=== PATIENT | female | born 1940 | race Caucasian/White ===

== ENCOUNTER 2017-08-05 05:37 | Inpatient (IN) | payer MEDICARE, MEDICAID ==
[~2017-08-05] VITALS: Ht 165.1 cm; Wt 71.0 kg
[2017-08-05] MEDS ORDERED: morphine 4 MG/ML inj SYRINge IV ONE ×2 (05:50→06:45)
[2017-08-05] MEDS ORDERED: ondansetron/PF 4mg/2ml inj IV ONE (05:50)
[2017-08-05] MEDS: morphine 4 MG/ML inj SYRINge IV PRN ×7 (07:34→21:10)
[2017-08-05 08:23] LABS: BASOPHILS % (AUTO) 0.3 % (0-1); EOSINOPHILS # (AUTO) 0.2 X10'3 (0-0.9); EOSINOPHILS % (AUTO) 2.1 % (0-6); HEMATOCRIT 34.6 % (35.0-45.0); HEMOGLOBIN 11.3 g/dl (12.0-16.0); LYMPHOCYTES # (AUTO) 1.9 X10'3 (1.1-4.8); LYMPHOCYTES % (AUTO) 18.9 % (21-51); MEAN CORPUSCULAR HEMOGLOBIN 25.8 PG (27.0-31.0); MEAN CORPUSCULAR HGB CONC 32.6 % (33.0-36.5); MEAN CORPUSCULAR VOLUME 79.1 FL (78-98); MONOCYTES # (AUTO) 0.6 X10'3 (0-0.9); MONOCYTES % (AUTO) 5.4 % (2-12); NEUTROPHILS # (AUTO) 7.5 X10'3 (1.8-7.7); NEUTROPHILS % (AUTO) 73.3 % (42-75); PLATELET COUNT 327 X10'3 (140-440); RED BLOOD COUNT 4.37 X10'6 (4.20-5.60); RED CELL DISTRIBUTION WIDTH 18.3 % (11.5-14.5); WHITE BLOOD COUNT 10.3 X10'3 (4.5-11.0)
[2017-08-05 08:41] LABS: ALANINE AMINOTRANSFERASE 14 U/L (12-78); ALBUMIN 2.8 G/DL (3.4-5.0); ALBUMIN/GLOBULIN RATIO 0.7 (1.1-1.5); ALKALINE PHOSPHATASE 120 IU/L (46-116); ANION GAP 10 (8-16); ASPARTATE AMINO TRANSFERASE 13 U/L (10-37); BILIRUBIN,TOTAL 0.4 MG/DL (0.1-1.0); BLOOD UREA NITROGEN 18 MG/DL (7-18); BUN/CREATININE RATIO 14.1 (6.6-38.0); CALCIUM 8.8 MG/DL (8.5-10.1); CHLORIDE 107 MMOL/L (99-107); CREATININE 1.28 MG/DL (0.40-0.90); GLUCOSE 93 MG/DL (70-104); POTASSIUM 3.7 MMOL/L (3.5-5.1); SODIUM 140 MMOL/L (135-145); TOTAL CARBON DIOXIDE 23.4 MMOL/L (24-32); eGFR 41 ML/MIN
[2017-08-05 08:50] LABS: CLARITY,URINE SLIGHTLY CLOUDY (Clear); COLOR,URINE YELLOW (Yellow); GLUCOSE, URINE NEGATIVE (Neg); KETONES,URINE NEGATIVE (Neg); LEUKOCYTE ESTERASE ,URINE NEGATIVE (Neg); NITRITES, URINE POSITIVE (Neg); OCCULT BLOOD,URINE NEGATIVE (Neg); PROTEIN,URINE NEGATIVE (Neg); UROBILINOGEN,URINE 0.2 E.U/dL (0.2-1.0)
[2017-08-05 09:17] LABS: UA COLLECTION TYPE FOLEY CATH
[2017-08-05 09:19] LABS: BACTERIA,URINE 4+ /HPF (Neg); MUCUS STRANDS MODERATE /LPF (Neg); RBC,URINE 0-2 /HPF (0-2); SQUAMOUS EPITHELIAL CELL,UR FEW /LPF (FEW)
[2017-08-05] MEDS ORDERED: mag hydrox/Alum hydrox/simeth 30ml oral suspension PO PRN (11:45)
[2017-08-05] MEDS ORDERED: morphine 4 MG/ML inj SYRINge IV PRN (11:45)
[2017-08-05] MEDS: K and/or MAG REPLACEMENT MC SCH (11:45)
[2017-08-05] MEDS ORDERED: magnesium hydroxide 30ml (MOM) UD suspension PO PRN (11:45)
[2017-08-05] MEDS ORDERED: HYDROcodone/acetaminophen 10/325mg tab PO PRN (11:45)
[2017-08-05] MEDS ORDERED: magnesium/D5W IVPB 50 ML IV PRN (11:45)
[2017-08-05] MEDS ORDERED: acetaminophen 325mg tablet PO PRN (11:45)
[2017-08-05] MEDS ORDERED: potassium Cl 20 mEq SR tablet PO PRN ×2 (11:45)
[2017-08-05] MEDS ORDERED: diphenhydrAMINE 25mg capsule PO PRN (11:45)
[2017-08-05] MEDS ORDERED: potassium Cl 40MEQ/NS 500ml 500 ML IV PRN ×2 (11:45)
[2017-08-05] MEDS ORDERED: magnesium 4gm in 100ml NS 100 ML IV PRN (11:45)
[2017-08-05] MEDS ORDERED: HYDROcodone/acetaminophen 5mg/325mg tablet PO PRN (11:45)
[2017-08-05] MEDS ORDERED: PROC10TA10 PO (11:51)
[2017-08-05] MEDS ORDERED: AMLO5TAB16 PO (11:51)
[2017-08-05] MEDS ORDERED: TIZA2TAB4 PO (11:51)
[2017-08-05] MEDS ORDERED: WARF3TAB56 PO (11:51)
[2017-08-05] MEDS ORDERED: CARV12.549 PO (11:51)
[2017-08-05] MEDS ORDERED: LEVO88TA7 PO (11:51)
[2017-08-05] MEDS ORDERED: LISI40TA4 PO (11:51)
[2017-08-05] MEDS ORDERED: OXYC20TA40 PO (11:51)
[2017-08-05] MEDS ORDERED: OMEP40CA37 PO (11:51)
[2017-08-05] MEDS ORDERED: CITA20TA27 PO (11:51)
[2017-08-05 12:45] VITALS: BP 155/77
[2017-08-05] MEDS: levoFLOXACIN-Levaquin 750MG/D5 150 ML IV SCH (13:34)
[2017-08-05] MEDS: normal saline 1000ml 1,000 ML IV SCH (13:35)
[2017-08-05 13:42] LABS: PARTIAL THROMBOPLASTIN TIME 45 SECONDS (22-32); PROTHROMBIN TIME 48.2 SECONDS (9.0-12.0)
[2017-08-05 13:46] LABS: INR 4.9 INR
[2017-08-05] MEDS: oxyCODONE IR 5mg (immed. release) tablet PO SCH ×2 (16:29→21:09)
[2017-08-05 18:00] VITALS: BP 143/85
[2017-08-05] MEDS: carVEDilol 12.5mg tablet PO SCH (21:09)
[2017-08-05] MEDS: lisinopril 10 MG tablet PO SCH (21:09)
[2017-08-05] MEDS: temazepam 15mg capsule PO PRN (21:36)
[2017-08-05 22:00] VITALS: BP 137/87
[2017-08-06] MEDS: morphine 4 MG/ML inj SYRINge IV PRN ×6 (00:59→20:28)
[2017-08-06] MEDS: normal saline 1000ml 1,000 ML IV SCH ×3 (01:02→17:35)
[2017-08-06 06:00] VITALS: BP 154/86
[2017-08-06 06:07] LABS: INR 2.5 INR; PROTHROMBIN TIME 25.5 SECONDS (9.0-12.0)
[2017-08-06 06:08] LABS: BASOPHILS % (AUTO) 0.5 % (0-1); EOSINOPHILS # (AUTO) 0.2 X10'3 (0-0.9); EOSINOPHILS % (AUTO) 3.2 % (0-6); HEMATOCRIT 30.1 % (35.0-45.0); HEMOGLOBIN 9.8 g/dl (12.0-16.0); LYMPHOCYTES # (AUTO) 1.6 X10'3 (1.1-4.8); LYMPHOCYTES % (AUTO) 27.3 % (21-51); MEAN CORPUSCULAR HEMOGLOBIN 25.6 PG (27.0-31.0); MEAN CORPUSCULAR HGB CONC 32.6 % (33.0-36.5); MEAN CORPUSCULAR VOLUME 78.6 FL (78-98); MEAN PLATELET VOLUME 8.6 FL (7.4-10.4); MONOCYTES # (AUTO) 0.4 X10'3 (0-0.9); MONOCYTES % (AUTO) 7.1 % (2-12); NEUTROPHILS # (AUTO) 3.7 X10'3 (1.8-7.7); NEUTROPHILS % (AUTO) 61.9 % (42-75); PLATELET COUNT 268 X10'3 (140-440); RED BLOOD COUNT 3.83 X10'6 (4.20-5.60); RED CELL DISTRIBUTION WIDTH 18.7 % (11.5-14.5)
[2017-08-06 06:16] LABS: ALANINE AMINOTRANSFERASE 7 U/L (12-78); ALBUMIN 2.2 G/DL (3.4-5.0); ALBUMIN/GLOBULIN RATIO 0.6 (1.1-1.5); ALKALINE PHOSPHATASE 101 IU/L (46-116); ANION GAP 8 (8-16); ASPARTATE AMINO TRANSFERASE 9 U/L (10-37); BILIRUBIN,TOTAL 0.2 MG/DL (0.1-1.0); BLOOD UREA NITROGEN 19 MG/DL (7-18); BUN/CREATININE RATIO 18.8 (6.6-38.0); CALCIUM 8.2 MG/DL (8.5-10.1); CHLORIDE 111 MMOL/L (99-107); CREATININE 1.01 MG/DL (0.40-0.90); GLUCOSE 96 MG/DL (70-104); MAGNESIUM 1.4 MG/DL (1.5-2.4); PHOSPHORUS 3.6 MG/DL (2.3-4.5); SODIUM 142 MMOL/L (135-145); TOTAL CARBON DIOXIDE 22.9 MMOL/L (24-32); TOTAL PROTEIN 6.2 G/DL (6.4-8.2); eGFR 53 ML/MIN
[2017-08-06] MEDS: proCHLORperazine 10mg tablet PO PRN ×2 (06:32→12:31)
[2017-08-06] MEDS: citalopram 20mg tablet PO SCH (07:08)
[2017-08-06] MEDS: levoTHYROXINE 88mcg tablet PO SCH (07:08)
[2017-08-06] MEDS: amLODIPine 5mg tablet PO SCH (07:08)
[2017-08-06] MEDS: oxyCODONE IR 5mg (immed. release) tablet PO SCH ×4 (07:09→20:27)
[2017-08-06] MEDS: carVEDilol 12.5mg tablet PO SCH ×2 (07:09→20:27)
[2017-08-06] MEDS: magnesium Cl slow-release 64mg tablet PO PRN ×2 (07:10→17:32)
[2017-08-06] MEDS: levoFLOXACIN-Levaquin 750MG/D5 150 ML IV SCH (07:11)
[2017-08-06] MEDS: K and/or MAG REPLACEMENT MC SCH (07:14)
[2017-08-06] MEDS ORDERED: pantoprazole 40mg Tablet.DR PO PRN (07:30)
[2017-08-06] MEDS: ondansetron/PF 4mg/2ml inj IV PRN ×2 (09:13→16:19)
[2017-08-06 10:00] VITALS: BP 108/64
[2017-08-06 18:00] VITALS: BP 135/83
[2017-08-06] MEDS: lisinopril 10 MG tablet PO SCH (20:26)
[2017-08-06] MEDS: lactobacillus rhamnosus 10,000 MMU CELLS/CAPSULE PO SCH (20:26)
[2017-08-06] MEDS ORDERED: warfarin 3mg tablet PO ONE (21:00)
[2017-08-06 22:00] VITALS: BP 110/58
[2017-08-06] MEDS: temazepam 15mg capsule PO PRN (22:18)
[2017-08-07] MEDS: morphine 4 MG/ML inj SYRINge IV PRN ×5 (01:26→19:31)
[2017-08-07] MEDS: normal saline 1000ml 1,000 ML IV SCH ×3 (02:38→21:13)
[2017-08-07 06:00] VITALS: BP 128/70
[2017-08-07 06:01] LABS: BASOPHILS % (AUTO) 0.5 % (0-1); EOSINOPHILS # (AUTO) 0.1 X10'3 (0-0.9); EOSINOPHILS % (AUTO) 2.4 % (0-6); HEMATOCRIT 28.3 % (35.0-45.0); HEMOGLOBIN 9.3 g/dl (12.0-16.0); LYMPHOCYTES # (AUTO) 1.5 X10'3 (1.1-4.8); LYMPHOCYTES % (AUTO) 27.7 % (21-51); MEAN CORPUSCULAR HEMOGLOBIN 25.8 PG (27.0-31.0); MEAN CORPUSCULAR HGB CONC 32.8 % (33.0-36.5); MEAN CORPUSCULAR VOLUME 78.7 FL (78-98); MEAN PLATELET VOLUME 7.9 FL (7.4-10.4); MONOCYTES # (AUTO) 0.4 X10'3 (0-0.9); MONOCYTES % (AUTO) 7.5 % (2-12); NEUTROPHILS # (AUTO) 3.2 X10'3 (1.8-7.7); NEUTROPHILS % (AUTO) 61.9 % (42-75); PLATELET COUNT 241 X10'3 (140-440); RED BLOOD COUNT 3.59 X10'6 (4.20-5.60); RED CELL DISTRIBUTION WIDTH 17.9 % (11.5-14.5); WHITE BLOOD COUNT 5.2 X10'3 (4.5-11.0)
[2017-08-07 06:08] LABS: INR 1.6 INR; PROTHROMBIN TIME 16.7 SECONDS (9.0-12.0)
[2017-08-07 06:25] LABS: ALANINE AMINOTRANSFERASE 7 U/L (12-78); ALBUMIN 2.1 G/DL (3.4-5.0); ALBUMIN/GLOBULIN RATIO 0.6 (1.1-1.5); ALKALINE PHOSPHATASE 88 IU/L (46-116); ANION GAP 8 (8-16); ASPARTATE AMINO TRANSFERASE 13 U/L (10-37); BILIRUBIN,TOTAL 0.2 MG/DL (0.1-1.0); BLOOD UREA NITROGEN 12 MG/DL (7-18); BUN/CREATININE RATIO 11.8 (6.6-38.0); CALCIUM 8.4 MG/DL (8.5-10.1); CHLORIDE 110 MMOL/L (99-107); CREATININE 1.02 MG/DL (0.40-0.90); GLUCOSE 84 MG/DL (70-104); MAGNESIUM 1.3 MG/DL (1.5-2.4); PHOSPHORUS 3.3 MG/DL (2.3-4.5); SODIUM 142 MMOL/L (135-145); TOTAL CARBON DIOXIDE 23.6 MMOL/L (24-32); TOTAL PROTEIN 5.8 G/DL (6.4-8.2); eGFR 53 ML/MIN
[2017-08-07] MEDS: oxyCODONE IR 5mg (immed. release) tablet PO SCH ×4 (06:49→21:11)
[2017-08-07] MEDS: amLODIPine 5mg tablet PO SCH (07:56)
[2017-08-07] MEDS: magnesium Cl slow-release 64mg tablet PO PRN ×2 (07:56→21:18)
[2017-08-07] MEDS: lactobacillus rhamnosus 10,000 MMU CELLS/CAPSULE PO SCH ×2 (07:56→19:30)
[2017-08-07] MEDS: citalopram 20mg tablet PO SCH (07:56)
[2017-08-07] MEDS: levoTHYROXINE 88mcg tablet PO SCH (07:56)
[2017-08-07] MEDS: carVEDilol 12.5mg tablet PO SCH ×2 (07:57→19:43)
[2017-08-07] MEDS: K and/or MAG REPLACEMENT MC SCH (08:00)
[2017-08-07 10:00] VITALS: BP 101/66
[2017-08-07] MEDS ORDERED: levoFLOXACIN 250mg tablet PO SCH (11:00)
[2017-08-07 13:08] VITALS: BP 109/63
[2017-08-07] MEDS: CefTRIAXone/D5W-Rocephin 1gm 50 ML IV SCH (15:33)
[2017-08-07 18:00] VITALS: BP 143/76
[2017-08-07] MEDS: acetaminophen 325mg tablet PO PRN (18:38)
[2017-08-07 19:42] VITALS: BP 122/74
[2017-08-07] MEDS ORDERED: warfarin 5mg tablet PO ONE (21:00)
[2017-08-07] MEDS: lisinopril 10 MG tablet PO SCH (21:10)
[2017-08-07 21:54] VITALS: BP 109/61
[2017-08-07] MEDS: temazepam 15mg capsule PO PRN (22:01)
[2017-08-08] MEDS: morphine 4 MG/ML inj SYRINge IV PRN ×3 (02:42→11:30)
[2017-08-08 05:28] LABS: BASOPHILS % (AUTO) 0.8 % (0-1); EOSINOPHILS # (AUTO) 0.1 X10'3 (0-0.9); EOSINOPHILS % (AUTO) 2.5 % (0-6); HEMATOCRIT 26.7 % (35.0-45.0); HEMOGLOBIN 8.6 g/dl (12.0-16.0); LYMPHOCYTES # (AUTO) 1.7 X10'3 (1.1-4.8); MEAN CORPUSCULAR HEMOGLOBIN 25.7 PG (27.0-31.0); MEAN CORPUSCULAR HGB CONC 32.2 % (33.0-36.5); MEAN CORPUSCULAR VOLUME 79.8 FL (78-98); MEAN PLATELET VOLUME 8.8 FL (7.4-10.4); MONOCYTES # (AUTO) 0.3 X10'3 (0-0.9); MONOCYTES % (AUTO) 6.2 % (2-12); NEUTROPHILS # (AUTO) 3.1 X10'3 (1.8-7.7); NEUTROPHILS % (AUTO) 58.5 % (42-75); PLATELET COUNT 214 X10'3 (140-440); RED BLOOD COUNT 3.35 X10'6 (4.20-5.60); RED CELL DISTRIBUTION WIDTH 18.8 % (11.5-14.5); WHITE BLOOD COUNT 5.3 X10'3 (4.5-11.0)
[2017-08-08 05:45] LABS: INR 2.2 INR; PROTHROMBIN TIME 22.1 SECONDS (9.0-12.0)
[2017-08-08 06:00] VITALS: BP 130/74
[2017-08-08 06:06] LABS: ALANINE AMINOTRANSFERASE 8 U/L (12-78); ALBUMIN/GLOBULIN RATIO 0.6 (1.1-1.5); ALKALINE PHOSPHATASE 80 IU/L (46-116); ANION GAP 10 (8-16); ASPARTATE AMINO TRANSFERASE 14 U/L (10-37); BILIRUBIN,TOTAL 0.2 MG/DL (0.1-1.0); BLOOD UREA NITROGEN 9 MG/DL (7-18); BUN/CREATININE RATIO 9.1 (6.6-38.0); CALCIUM 8.6 MG/DL (8.5-10.1); CHLORIDE 109 MMOL/L (99-107); CREATININE 0.99 MG/DL (0.40-0.90); GLUCOSE 70 MG/DL (70-104); MAGNESIUM 1.3 MG/DL (1.5-2.4); PHOSPHORUS 3.3 MG/DL (2.3-4.5); POTASSIUM 3.9 MMOL/L (3.5-5.1); SODIUM 140 MMOL/L (135-145); TOTAL CARBON DIOXIDE 21.5 MMOL/L (24-32); TOTAL PROTEIN 5.4 G/DL (6.4-8.2); eGFR 55 ML/MIN
[2017-08-08] MEDS: K and/or MAG REPLACEMENT MC SCH (08:00)
[2017-08-08] MEDS ORDERED: CefTRIAXone/D5W-Rocephin 1gm 50 ML IV SCH (08:00)
[2017-08-08] MEDS: lactobacillus rhamnosus 10,000 MMU CELLS/CAPSULE PO SCH ×2 (09:08→20:28)
[2017-08-08] MEDS: carVEDilol 12.5mg tablet PO SCH ×2 (09:08→20:29)
[2017-08-08] MEDS: levoTHYROXINE 88mcg tablet PO SCH (09:08)
[2017-08-08] MEDS: amLODIPine 5mg tablet PO SCH (09:08)
[2017-08-08] MEDS: citalopram 20mg tablet PO SCH (09:08)
[2017-08-08] MEDS: oxyCODONE IR 5mg (immed. release) tablet PO SCH ×2 (09:08→13:31)
[2017-08-08] MEDS: CefTRIAXone/D5W-Rocephin 1gm 50 ML IV SCH (09:10)
[2017-08-08] MEDS: normal saline 1000ml 1,000 ML IV SCH ×2 (09:15→20:15)
[2017-08-08 10:00] VITALS: BP 145/76
[2017-08-08] MEDS: bisacodyl 10mg suppository rectal RC PRN (10:01)
[2017-08-08] MEDS: HYDROmorphone 1 mg/ml syringe IV PRN ×3 (14:17→23:49)
[2017-08-08] MEDS: oxyCODONE SR 10mg (sust. release) tab PO SCH ×2 (15:55→20:29)
[2017-08-08 18:00] VITALS: BP 145/83
[2017-08-08] MEDS: lisinopril 10 MG tablet PO SCH (20:29)
[2017-08-08] MEDS ORDERED: albuterol 2.5 MG/3 ML nebule NEB PRN (20:45)
[2017-08-08] MEDS ORDERED: warfarin 3mg tablet PO ONE (21:00)
[2017-08-08 22:07] VITALS: BP 148/71
[2017-08-08] MEDS: temazepam 15mg capsule PO PRN (23:51)
[2017-08-09] MEDS: HYDROmorphone 1 mg/ml syringe IV PRN ×5 (04:59→21:19)
[2017-08-09] MEDS: normal saline 1000ml 1,000 ML IV SCH ×2 (05:04→16:58)
[2017-08-09 05:08] LABS: BASOPHILS % (AUTO) 0.6 % (0-1); EOSINOPHILS # (AUTO) 0.1 X10'3 (0-0.9); EOSINOPHILS % (AUTO) 2.3 % (0-6); HEMATOCRIT 32.1 % (35.0-45.0); HEMOGLOBIN 10.5 g/dl (12.0-16.0); LYMPHOCYTES # (AUTO) 1.2 X10'3 (1.1-4.8); LYMPHOCYTES % (AUTO) 25.7 % (21-51); MEAN CORPUSCULAR HEMOGLOBIN 25.8 PG (27.0-31.0); MEAN CORPUSCULAR HGB CONC 32.9 % (33.0-36.5); MEAN CORPUSCULAR VOLUME 78.5 FL (78-98); MONOCYTES # (AUTO) 0.3 X10'3 (0-0.9); MONOCYTES % (AUTO) 6.3 % (2-12); NEUTROPHILS # (AUTO) 3.2 X10'3 (1.8-7.7); NEUTROPHILS % (AUTO) 65.1 % (42-75); PLATELET COUNT 246 X10'3 (140-440); RED BLOOD COUNT 4.09 X10'6 (4.20-5.60); RED CELL DISTRIBUTION WIDTH 19.2 % (11.5-14.5); WHITE BLOOD COUNT 4.9 X10'3 (4.5-11.0)
[2017-08-09 05:55] LABS: INR 3.3 INR
[2017-08-09 06:00] VITALS: BP 159/94
[2017-08-09 06:09] LABS: ALANINE AMINOTRANSFERASE 14 U/L (12-78); ALBUMIN 2.4 G/DL (3.4-5.0); ALBUMIN/GLOBULIN RATIO 0.6 (1.1-1.5); ALKALINE PHOSPHATASE 101 IU/L (46-116); ANION GAP 12 (8-16); ASPARTATE AMINO TRANSFERASE 13 U/L (10-37); BILIRUBIN,TOTAL 0.3 MG/DL (0.1-1.0); BLOOD UREA NITROGEN 5 MG/DL (7-18); BUN/CREATININE RATIO 5.6 (6.6-38.0); CALCIUM 8.6 MG/DL (8.5-10.1); CHLORIDE 105 MMOL/L (99-107); CREATININE 0.89 MG/DL (0.40-0.90); GLUCOSE 83 MG/DL (70-104); MAGNESIUM 1.1 MG/DL (1.5-2.4); PHOSPHORUS 2.5 MG/DL (2.3-4.5); POTASSIUM 3.1 MMOL/L (3.5-5.1); SODIUM 141 MMOL/L (135-145); TOTAL CARBON DIOXIDE 24.5 MMOL/L (24-32); TOTAL PROTEIN 6.4 G/DL (6.4-8.2); eGFR 62 ML/MIN
[2017-08-09] MEDS: ondansetron/PF 4mg/2ml inj IV PRN (07:18)
[2017-08-09] MEDS: bisacodyl 10mg suppository rectal RC PRN (07:20)
[2017-08-09] MEDS: lactobacillus rhamnosus 10,000 MMU CELLS/CAPSULE PO SCH ×2 (07:41→19:54)
[2017-08-09] MEDS: carVEDilol 12.5mg tablet PO SCH ×2 (07:41→19:54)
[2017-08-09] MEDS: levoTHYROXINE 88mcg tablet PO SCH (07:41)
[2017-08-09] MEDS: CefTRIAXone/D5W-Rocephin 1gm 50 ML IV SCH (07:41)
[2017-08-09] MEDS: amLODIPine 5mg tablet PO SCH (07:41)
[2017-08-09] MEDS: oxyCODONE SR 10mg (sust. release) tab PO SCH ×2 (07:41→19:54)
[2017-08-09] MEDS: citalopram 20mg tablet PO SCH (07:41)
[2017-08-09] MEDS: K and/or MAG REPLACEMENT MC SCH (08:00)
[2017-08-09] MEDS ORDERED: potassium Cl 20 mEq SR tablet PO PRN (08:10)
[2017-08-09] MEDS ORDERED: magnesium 4gm in 100ml NS 100 ML IV PRN (08:10)
[2017-08-09] MEDS ORDERED: magnesium/D5W IVPB 100 ML IV PRN (08:10)
[2017-08-09] MEDS ORDERED: potassium Cl 40MEQ/NS 500ml 500 ML IV PRN ×2 (08:10)
[2017-08-09] MEDS: magnesium Cl slow-release 64mg tablet PO PRN ×2 (09:25→19:55)
[2017-08-09] MEDS: potassium Cl 20 mEq SR tablet PO PRN ×3 (09:26→17:26)
[2017-08-09 10:00] VITALS: BP 111/80
[2017-08-09 18:00] VITALS: BP 135/83
[2017-08-09] MEDS: lisinopril 10 MG tablet PO SCH (19:54)
[2017-08-09] MEDS: docusate sod 100mg capsule PO SCH (19:54)
[2017-08-10] MEDS: temazepam 15mg capsule PO PRN ×2 (00:21→22:08)
[2017-08-10] MEDS: HYDROmorphone 1 mg/ml syringe IV PRN ×6 (01:24→21:00)
[2017-08-10] MEDS: normal saline 1000ml 1,000 ML IV SCH ×3 (02:08→23:34)
[2017-08-10 05:37] LABS: BASOPHILS % (AUTO) 0.5 % (0-1); EOSINOPHILS # (AUTO) 0.1 X10'3 (0-0.9); EOSINOPHILS % (AUTO) 2.8 % (0-6); HEMATOCRIT 28.7 % (35.0-45.0); HEMOGLOBIN 9.4 g/dl (12.0-16.0); LYMPHOCYTES # (AUTO) 1.6 X10'3 (1.1-4.8); MEAN CORPUSCULAR HEMOGLOBIN 25.6 PG (27.0-31.0); MEAN CORPUSCULAR HGB CONC 32.7 % (33.0-36.5); MEAN CORPUSCULAR VOLUME 78.4 FL (78-98); MEAN PLATELET VOLUME 8.8 FL (7.4-10.4); MONOCYTES # (AUTO) 0.4 X10'3 (0-0.9); MONOCYTES % (AUTO) 7.3 % (2-12); NEUTROPHILS # (AUTO) 2.9 X10'3 (1.8-7.7); NEUTROPHILS % (AUTO) 57.4 % (42-75); PLATELET COUNT 237 X10'3 (140-440); RED BLOOD COUNT 3.66 X10'6 (4.20-5.60); RED CELL DISTRIBUTION WIDTH 18.5 % (11.5-14.5)
[2017-08-10 05:57] LABS: ANION GAP 10 (8-16); BLOOD UREA NITROGEN 7 MG/DL (7-18); CHLORIDE 109 MMOL/L (99-107); GLUCOSE 79 MG/DL (70-104); POTASSIUM 3.6 MMOL/L (3.5-5.1); SODIUM 143 MMOL/L (135-145); TOTAL CARBON DIOXIDE 24.3 MMOL/L (24-32)
[2017-08-10 05:58] LABS: ALANINE AMINOTRANSFERASE 10 U/L (12-78); ALBUMIN 2.1 G/DL (3.4-5.0); ALBUMIN/GLOBULIN RATIO 0.6 (1.1-1.5); ALKALINE PHOSPHATASE 86 IU/L (46-116); ASPARTATE AMINO TRANSFERASE 16 U/L (10-37); BILIRUBIN,TOTAL 0.3 MG/DL (0.1-1.0); BUN/CREATININE RATIO 8.3 (6.6-38.0); CALCIUM 8.2 MG/DL (8.5-10.1); CREATININE 0.84 MG/DL (0.40-0.90); MAGNESIUM 1.3 MG/DL (1.5-2.4); PHOSPHORUS 3.1 MG/DL (2.3-4.5); TOTAL PROTEIN 5.7 G/DL (6.4-8.2); eGFR 66 ML/MIN
[2017-08-10 06:00] VITALS: BP 142/71
[2017-08-10 06:45] LABS: INR 3.1 INR; PROTHROMBIN TIME 30.6 SECONDS (9.0-12.0)
[2017-08-10] MEDS: K and/or MAG REPLACEMENT MC SCH (07:14)
[2017-08-10] MEDS: amLODIPine 5mg tablet PO SCH (07:22)
[2017-08-10] MEDS: lactobacillus rhamnosus 10,000 MMU CELLS/CAPSULE PO SCH ×2 (07:22→19:06)
[2017-08-10] MEDS: docusate sod 100mg capsule PO SCH ×2 (07:22→19:07)
[2017-08-10] MEDS: magnesium Cl slow-release 64mg tablet PO PRN (07:22)
[2017-08-10] MEDS: carVEDilol 12.5mg tablet PO SCH ×2 (07:22→19:07)
[2017-08-10] MEDS: citalopram 20mg tablet PO SCH (07:22)
[2017-08-10] MEDS: levoTHYROXINE 88mcg tablet PO SCH (07:22)
[2017-08-10] MEDS: CefTRIAXone/D5W-Rocephin 1gm 50 ML IV SCH (07:23)
[2017-08-10] MEDS: oxyCODONE SR 10mg (sust. release) tab PO SCH ×2 (07:51→19:06)
[2017-08-10 10:08] VITALS: BP 134/70
[2017-08-10 18:00] VITALS: BP 151/83
[2017-08-10] MEDS: lisinopril 10 MG tablet PO SCH (19:07)
[2017-08-10 22:00] VITALS: BP 139/82
[2017-08-11] MEDS: HYDROmorphone 1 mg/ml syringe IV PRN ×4 (01:07→15:21)
[2017-08-11 05:34] LABS: INR 1.8 INR; PROTHROMBIN TIME 18.3 SECONDS (9.0-12.0)
[2017-08-11 06:00] VITALS: BP 168/88
[2017-08-11] MEDS: ondansetron/PF 4mg/2ml inj IV PRN (07:02)
[2017-08-11] MEDS: bisacodyl 10mg suppository rectal RC PRN (07:03)
[2017-08-11] MEDS: CefTRIAXone/D5W-Rocephin 1gm 50 ML IV SCH (07:13)
[2017-08-11] MEDS: amLODIPine 5mg tablet PO SCH (07:48)
[2017-08-11] MEDS: oxyCODONE SR 10mg (sust. release) tab PO SCH (07:48)
[2017-08-11] MEDS: lactobacillus rhamnosus 10,000 MMU CELLS/CAPSULE PO SCH ×2 (07:48→20:02)
[2017-08-11] MEDS: carVEDilol 12.5mg tablet PO SCH ×2 (07:48→20:02)
[2017-08-11] MEDS: docusate sod 100mg capsule PO SCH ×2 (07:48→20:02)
[2017-08-11] MEDS: levoTHYROXINE 88mcg tablet PO SCH (07:48)
[2017-08-11] MEDS: citalopram 20mg tablet PO SCH (07:48)
[2017-08-11] MEDS: K and/or MAG REPLACEMENT MC SCH (07:52)
[2017-08-11 09:07] LABS: GLUCOSE 166 MG/DL (70-104); POTASSIUM 3.6 MMOL/L (3.5-5.1); SODIUM 140 MMOL/L (135-145)
[2017-08-11 09:08] LABS: ALBUMIN 2.2 G/DL (3.4-5.0); ANION GAP 9 (8-16); BLOOD UREA NITROGEN 6 MG/DL (7-18); BUN/CREATININE RATIO 7.4 (6.6-38.0); CALCIUM 8.1 MG/DL (8.5-10.1); CHLORIDE 105 MMOL/L (99-107); CREATININE 0.81 MG/DL (0.40-0.90); MAGNESIUM 1.4 MG/DL (1.5-2.4); TOTAL CARBON DIOXIDE 26.2 MMOL/L (24-32); eGFR 69 ML/MIN
[2017-08-11] MEDS: magnesium Cl slow-release 64mg tablet PO PRN (09:54)
[2017-08-11 10:00] VITALS: BP 149/74
[2017-08-11] MEDS: oxyCODONE IR 5mg (immed. release) tablet PO PRN ×3 (10:57→23:04)
[2017-08-11] MEDS: normal saline 1000ml 1,000 ML IV SCH (15:21)
[2017-08-11 18:30] VITALS: BP 140/83
[2017-08-11] MEDS: lisinopril 10 MG tablet PO SCH (20:02)
[2017-08-11] MEDS: acetaminophen 325mg tablet PO PRN (20:03)
[2017-08-11] MEDS ORDERED: warfarin 3mg tablet PO ONE (21:00)
[2017-08-11 22:00] VITALS: BP 131/74
[2017-08-11] MEDS: temazepam 15mg capsule PO PRN (23:04)
[2017-08-12] MEDS: oxyCODONE IR 5mg (immed. release) tablet PO PRN ×5 (05:01→21:29)
[2017-08-12 06:24] LABS: INR 1.4 INR; PROTHROMBIN TIME 14.7 SECONDS (9.0-12.0)
[2017-08-12 07:00] VITALS: BP 111/76
[2017-08-12] MEDS: lactobacillus rhamnosus 10,000 MMU CELLS/CAPSULE PO SCH ×2 (08:00→20:37)
[2017-08-12] MEDS: citalopram 20mg tablet PO SCH (08:00)
[2017-08-12] MEDS: carVEDilol 12.5mg tablet PO SCH ×2 (08:00→20:36)
[2017-08-12] MEDS: K and/or MAG REPLACEMENT MC SCH (08:00)
[2017-08-12] MEDS: levoTHYROXINE 88mcg tablet PO SCH (08:00)
[2017-08-12] MEDS: amLODIPine 5mg tablet PO SCH (08:00)
[2017-08-12] MEDS ORDERED: methylnaltrexone br 12mg/0.6ml inj***SubQ only SQ ONE (08:00)
[2017-08-12] MEDS: CefTRIAXone/D5W-Rocephin 1gm 50 ML IV SCH (08:00)
[2017-08-12] MEDS: docusate sod 100mg capsule PO SCH ×2 (08:00→20:37)
[2017-08-12 11:00] VITALS: BP 113/64
[2017-08-12 18:00] VITALS: BP 140/80
[2017-08-12 20:30] VITALS: BP 137/86
[2017-08-12] MEDS: lisinopril 10 MG tablet PO SCH (20:38)
[2017-08-12] MEDS ORDERED: warfarin 5mg tablet PO ONE (21:00)
[2017-08-12 22:00] VITALS: BP 136/83
[2017-08-13] MEDS: oxyCODONE IR 5mg (immed. release) tablet PO PRN ×3 (01:36→10:10)
[2017-08-13] MEDS: temazepam 15mg capsule PO PRN (01:37)
[2017-08-13 06:00] VITALS: BP 159/75
[2017-08-13 06:11] LABS: INR 1.5 INR; PROTHROMBIN TIME 15.4 SECONDS (9.0-12.0)
[2017-08-13] MEDS: K and/or MAG REPLACEMENT MC SCH (07:55)
[2017-08-13] MEDS: amLODIPine 5mg tablet PO SCH (08:23)
[2017-08-13] MEDS: citalopram 20mg tablet PO SCH (08:23)
[2017-08-13] MEDS: lactobacillus rhamnosus 10,000 MMU CELLS/CAPSULE PO SCH (08:23)
[2017-08-13] MEDS: docusate sod 100mg capsule PO SCH (08:23)
[2017-08-13] MEDS: carVEDilol 12.5mg tablet PO SCH (08:23)
[2017-08-13] MEDS: levoTHYROXINE 88mcg tablet PO SCH (08:23)
[2017-08-13] MEDS: CefTRIAXone/D5W-Rocephin 1gm 50 ML IV SCH (08:23)
[2017-08-13 08:26] VITALS: BP 118/78
[2017-08-13] MEDS ORDERED: HYDR-569 PO (11:27)
[2017-08-13] MEDS ORDERED: warfarin 5mg tablet PO ONE (21:00)
== END 2017-08-13 13:20 | disposition home health service (06) | DRG 542 ==
LOC: ER 05:37 → ED HOLD 11:42 → EDBEDREQ 11:50 → ORTHO 4S 12:45
PROVIDERS: ADMIT Family Medicine; ATTEND Family Medicine
DX: M80.851A Other osteoporosis with current pathological fracture, right femur, initial encounter for fracture (principal); J96.01 Acute respiratory failure with hypoxia; N39.0 Urinary tract infection, site not specified; J44.1 Chronic obstructive pulmonary disease with (acute) exacerbation; M80.08XA Age-related osteoporosis with current pathological fracture, vertebra(e), initial encounter for fracture; D64.9 Anemia, unspecified; E03.9 Hypothyroidism, unspecified; I10 Essential (primary) hypertension; I48.0 Paroxysmal atrial fibrillation; I73.9 Peripheral vascular disease, unspecified; K21.9 Gastro-esophageal reflux disease without esophagitis; Z96.649 Presence of unspecified artificial hip joint; R79.89 Other specified abnormal findings of blood chemistry; K59.00 Constipation, unspecified; B96.20 Unspecified Escherichia coli [E. coli] as the cause of diseases classified elsewhere; W18.39XA Other fall on same level, initial encounter; R79.1 Abnormal coagulation profile; Z16.23 Resistance to quinolones and fluoroquinolones; Z60.2 Problems related to living alone; Z74.01 Bed confinement status; Z99.3 Dependence on wheelchair; Z90.5 Acquired absence of kidney; Z90.710 Acquired absence of both cervix and uterus; Z90.49 Acquired absence of other specified parts of digestive tract; Z88.2 Allergy status to sulfonamides; Z79.01 Long term (current) use of anticoagulants; Z79.899 Other long term (current) drug therapy; Z85.43 Personal history of malignant neoplasm of ovary; Z85.528 Personal history of other malignant neoplasm of kidney; Z86.718 Personal history of other venous thrombosis and embolism; Z86.73 Personal history of transient ischemic attack (TIA), and cerebral infarction without residual deficits; Z87.891 Personal history of nicotine dependence; Z82.49 Family history of ischemic heart disease and other diseases of the circulatory system; Y93.89 Activity, other specified; Y92.89 Other specified places as the place of occurrence of the external cause; Y99.8 Other external cause status
CPT/HCPCS: 36415; 71045; 72110; 72192; 72220; 73502; 80048; 80053; 81001; 83605; 83735; 83880; 84100; 84132; 84443; 84484; 85025; 85610; 85730; 87040; 87070; 87077; 87088; 87186; 93306; 94760; 96374; 96375; 96376; 97110; 97161; 97530; 99285; A4315; A6258; J0696; J1170; J1956; J2270; J2405; J3480; J7030; Q0163; Q0164

== ENCOUNTER 2017-08-19 17:01 | Emergency (ER) | payer MEDICARE, MEDICAID ==
[~2017-08-19] VITALS: Ht 165.1 cm; Wt 66.0 kg
[~2017-08-19 17:01] MED LIST: AMLO5TAB16 PO; CARV12.549 PO; CITA20TA27 PO; HYDR-569 PO; LEVO88TA7 PO; LISI40TA4 PO; OMEP40CA37 PO; OXYC20TA40 PO; PROC10TA10 PO; TIZA2TAB4 PO; WARF3TAB56 PO
[2017-08-19] MEDS ORDERED: oxyCODONE IR 5mg (immed. release) tablet PO ONE (17:25)
[2017-08-19 17:46] LABS: BASOPHILS % (AUTO) 0.3 % (0-1); EOSINOPHILS # (AUTO) 0.2 X10'3 (0-0.9); EOSINOPHILS % (AUTO) 4.6 % (0-6); HEMATOCRIT 30.9 % (35.0-45.0); HEMOGLOBIN 10.3 g/dl (12.0-16.0); LYMPHOCYTES # (AUTO) 1.2 X10'3 (1.1-4.8); LYMPHOCYTES % (AUTO) 26.4 % (21-51); MEAN CORPUSCULAR HEMOGLOBIN 25.9 PG (27.0-31.0); MEAN CORPUSCULAR HGB CONC 33.5 % (33.0-36.5); MEAN CORPUSCULAR VOLUME 77.3 FL (78-98); MEAN PLATELET VOLUME 8.7 FL (7.4-10.4); MONOCYTES # (AUTO) 0.6 X10'3 (0-0.9); MONOCYTES % (AUTO) 12.5 % (2-12); NEUTROPHILS # (AUTO) 2.5 X10'3 (1.8-7.7); NEUTROPHILS % (AUTO) 56.2 % (42-75); PLATELET COUNT 286 X10'3 (140-440); RED BLOOD COUNT 3.99 X10'6 (4.20-5.60); RED CELL DISTRIBUTION WIDTH 19.4 % (11.5-14.5); WHITE BLOOD COUNT 4.5 X10'3 (4.5-11.0)
[2017-08-19 17:58] LABS: ALANINE AMINOTRANSFERASE 13 U/L (12-78); ALBUMIN 2.6 G/DL (3.4-5.0); ALBUMIN/GLOBULIN RATIO 0.6 (1.1-1.5); ALKALINE PHOSPHATASE 108 IU/L (46-116); ANION GAP 8 (8-16); ASPARTATE AMINO TRANSFERASE 16 U/L (10-37); BILIRUBIN,TOTAL 0.3 MG/DL (0.1-1.0); BLOOD UREA NITROGEN 28 MG/DL (7-18); BUN/CREATININE RATIO 21.4 (6.6-38.0); CALCIUM 8.4 MG/DL (8.5-10.1); CHLORIDE 105 MMOL/L (99-107); CREATININE 1.31 MG/DL (0.40-0.90); GLUCOSE 105 MG/DL (70-104); SODIUM 141 MMOL/L (135-145); TOTAL CARBON DIOXIDE 28.4 MMOL/L (24-32); TOTAL PROTEIN 6.8 G/DL (6.4-8.2); eGFR 39 ML/MIN
[2017-08-19 18:21] LABS: GIANT PLATELET FEW; LARGE PLATELETS FEW; PLATELET ESTIMATE NORMAL
[2017-08-19 18:22] LABS: ANISOCYTOSIS 2+; POIKILOCYTOSIS 1+; POLYCHROMASIA 1+
[2017-08-19 20:08] VITALS: BP 133/80
== END 2017-08-19 20:10 | disposition home or self-care (01) ==
LOC: ER 17:01
DX: S32.501A Unspecified fracture of right pubis, initial encounter for closed fracture (principal); S32.10XA Unspecified fracture of sacrum, initial encounter for closed fracture; Z86.718 Personal history of other venous thrombosis and embolism; Z98.890 Other specified postprocedural states; Z88.2 Allergy status to sulfonamides; Z79.01 Long term (current) use of anticoagulants; Z79.899 Other long term (current) drug therapy; Z60.2 Problems related to living alone; W18.39XA Other fall on same level, initial encounter; Y93.89 Activity, other specified; Y92.009 Unspecified place in unspecified non-institutional (private) residence as the place of occurrence of the external cause; Y99.8 Other external cause status
CPT/HCPCS: 36415; 72170; 80053; 85025; 99285

== ENCOUNTER 2017-08-26 11:21 | Inpatient (IN) | payer MEDICARE, MEDICAID ==
[~2017-08-26] VITALS: Ht 165.1 cm; Wt 65.9 kg
[2017-08-26] MEDS ORDERED: aspirin 81mg tab.chew PO ONE (11:30)
[2017-08-26] MEDS ORDERED: verapamil 2.5 mg/ml inj IV ONE (11:45)
[2017-08-26] MEDS ORDERED: diltiazem-NS 100mg/100ml 100 ML IV ONE (11:45)
[2017-08-26 11:54] LABS: BASOPHILS # (AUTO) 0.1 X10'3 (0-0.2); BASOPHILS % (AUTO) 0.6 % (0-1); EOSINOPHILS % (AUTO) 0.1 % (0-6); HEMOGLOBIN 12.2 g/dl (12.0-16.0); LYMPHOCYTES # (AUTO) 1.8 X10'3 (1.1-4.8); MEAN CORPUSCULAR HEMOGLOBIN 25.6 PG (27.0-31.0); MEAN CORPUSCULAR HGB CONC 32.9 % (33.0-36.5); MEAN CORPUSCULAR VOLUME 77.8 FL (78-98); MEAN PLATELET VOLUME 7.8 FL (7.4-10.4); MONOCYTES # (AUTO) 0.6 X10'3 (0-0.9); MONOCYTES % (AUTO) 6.5 % (2-12); NEUTROPHILS % (AUTO) 73.8 % (42-75); PLATELET COUNT 355 X10'3 (140-440); RED BLOOD COUNT 4.75 X10'6 (4.20-5.60); RED CELL DISTRIBUTION WIDTH 18.8 % (11.5-14.5); WHITE BLOOD COUNT 9.4 X10'3 (4.5-11.0)
[2017-08-26 12:09] LABS: INR 1.2 INR; PARTIAL THROMBOPLASTIN TIME 28 SECONDS (22-32); PROTHROMBIN TIME 12.6 SECONDS (9.0-12.0)
[2017-08-26 12:17] LABS: ALANINE AMINOTRANSFERASE 15 U/L (12-78); ALBUMIN 3.1 G/DL (3.4-5.0); ALBUMIN/GLOBULIN RATIO 0.7 (1.1-1.5); ALKALINE PHOSPHATASE 147 IU/L (46-116); ANION GAP 12 (8-16); ASPARTATE AMINO TRANSFERASE 10 U/L (10-37); BILIRUBIN,TOTAL 0.4 MG/DL (0.1-1.0); BLOOD UREA NITROGEN 15 MG/DL (7-18); BUN/CREATININE RATIO 13.3 (6.6-38.0); CALCIUM 8.7 MG/DL (8.5-10.1); CHLORIDE 103 MMOL/L (99-107); CREATININE 1.13 MG/DL (0.40-0.90); GLUCOSE 107 MG/DL (70-104); POTASSIUM 3.6 MMOL/L (3.5-5.1); SODIUM 137 MMOL/L (135-145); TOTAL CARBON DIOXIDE 22.1 MMOL/L (24-32); TOTAL PROTEIN 7.6 G/DL (6.4-8.2); eGFR 47 ML/MIN
[2017-08-26 12:44] LABS: PLATELET ESTIMATE NORMAL
[2017-08-26 12:45] LABS: ANISOCYTOSIS 2+
[2017-08-26] MEDS ORDERED: acetaminophen 325mg tablet PO PRN (13:10)
[2017-08-26] MEDS ORDERED: potassium Cl 20 mEq SR tablet PO PRN (13:10)
[2017-08-26] MEDS ORDERED: potassium Cl 40MEQ/NS 500ml 500 ML IV PRN ×2 (13:10)
[2017-08-26] MEDS ORDERED: morphine 4 MG/ML inj SYRINge IV PRN (13:10)
[2017-08-26] MEDS ORDERED: heparin 10,000 units/1 ML INJ IV PRN (13:10)
[2017-08-26] MEDS ORDERED: ipratropium/albuterol 3ml nebule NEB PRN (13:10)
[2017-08-26] MEDS ORDERED: magnesium 4gm in 100ml NS 100 ML IV PRN (13:10)
[2017-08-26] MEDS ORDERED: heparin 10,000 units/1 ML INJ IV ONE (13:10)
[2017-08-26] MEDS ORDERED: mag hydrox/Alum hydrox/simeth 30ml oral suspension PO PRN (13:10)
[2017-08-26] MEDS ORDERED: proCHLORperazine 10mg tablet PO PRN (13:50)
[2017-08-26] MEDS: morphine 4 MG/ML inj SYRINge IV PRN ×2 (14:00→18:17)
[2017-08-26 15:00] VITALS: BP 130/81
[2017-08-26] MEDS: levoTHYROXINE 88mcg tablet PO SCH (15:42)
[2017-08-26] MEDS: oxyCODONE IR 5mg (immed. release) tablet PO PRN (16:28)
[2017-08-26] MEDS: sodium bicarbonate (8.4%) inj. 50 MEQ in normal saline 1000ml 1,000 ML IV SCH ×2 (17:18→22:14)
[2017-08-26 19:00] VITALS: BP 123/91
[2017-08-26 20:00] VITALS: BP 105/80
[2017-08-26] MEDS: ondansetron/PF 4mg/2ml inj IV PRN (20:28)
[2017-08-26] MEDS ORDERED: warfarin 3mg tablet PO ONE (21:00)
[2017-08-26] MEDS: docusate sod 100mg capsule PO SCH (21:08)
[2017-08-26] MEDS: carVEDilol 12.5mg tablet PO SCH (21:09)
[2017-08-26 22:00] VITALS: BP 95/60
[2017-08-26 23:00] VITALS: BP 88/54
[2017-08-27] MEDS: oxyCODONE IR 5mg (immed. release) tablet PO PRN ×2 (00:41→09:16)
[2017-08-27] MEDS: morphine 4 MG/ML inj SYRINge IV PRN ×6 (01:58→23:18)
[2017-08-27] MEDS: sodium bicarbonate (8.4%) inj. 50 MEQ in normal saline 1000ml 1,000 ML IV SCH ×3 (01:59→23:26)
[2017-08-27 03:00] VITALS: BP 106/67
[2017-08-27 05:02] LABS: BASOPHILS % (AUTO) 0.4 % (0-1); EOSINOPHILS # (AUTO) 0.2 X10'3 (0-0.9); EOSINOPHILS % (AUTO) 1.9 % (0-6); HEMATOCRIT 29.5 % (35.0-45.0); HEMOGLOBIN 9.5 g/dl (12.0-16.0); LYMPHOCYTES % (AUTO) 24.1 % (21-51); MEAN CORPUSCULAR HEMOGLOBIN 25.1 PG (27.0-31.0); MEAN CORPUSCULAR HGB CONC 32.1 % (33.0-36.5); MEAN PLATELET VOLUME 8.3 FL (7.4-10.4); MONOCYTES # (AUTO) 0.6 X10'3 (0-0.9); MONOCYTES % (AUTO) 7.4 % (2-12); NEUTROPHILS # (AUTO) 5.5 X10'3 (1.8-7.7); NEUTROPHILS % (AUTO) 66.2 % (42-75); PLATELET COUNT 253 X10'3 (140-440); RED BLOOD COUNT 3.78 X10'6 (4.20-5.60); RED CELL DISTRIBUTION WIDTH 19.4 % (11.5-14.5); WHITE BLOOD COUNT 8.4 X10'3 (4.5-11.0)
[2017-08-27 05:23] LABS: INR 1.4 INR; PROTHROMBIN TIME 14.8 SECONDS (9.0-12.0)
[2017-08-27 05:48] LABS: ALANINE AMINOTRANSFERASE 11 U/L (12-78); ALBUMIN 2.4 G/DL (3.4-5.0); ALBUMIN/GLOBULIN RATIO 0.7 (1.1-1.5); ALKALINE PHOSPHATASE 116 IU/L (46-116); ANION GAP 10 (8-16); ASPARTATE AMINO TRANSFERASE 13 U/L (10-37); BILIRUBIN,TOTAL 0.2 MG/DL (0.1-1.0); BLOOD UREA NITROGEN 21 MG/DL (7-18); BUN/CREATININE RATIO 14.9 (6.6-38.0); CALCIUM 7.9 MG/DL (8.5-10.1); CHLORIDE 106 MMOL/L (99-107); CHOL/HDL RATIO 4.5 (0.00-4.99); CHOLESTEROL 126 MG/DL (0-200); CREATININE 1.41 MG/DL (0.40-0.90); GLUCOSE 95 MG/DL (70-104); HDL CHOLESTEROL 28 MG/DL (35-60); LDL CHOLESTEROL 83 MG/DL (50-100); MAGNESIUM 1.3 MG/DL (1.5-2.4); POTASSIUM 3.6 MMOL/L (3.5-5.1); SODIUM 141 MMOL/L (135-145); TRIGLYCERIDES 102 MG/DL (20-135); eGFR 36 ML/MIN
[2017-08-27 06:35] LABS: ANISOCYTOSIS 2+; PLATELET ESTIMATE NORMAL
[2017-08-27 07:00] VITALS: BP 128/76
[2017-08-27] MEDS ORDERED: pantoprazole 40mg Tablet.DR PO SCH ×3 (07:30→17:30)
[2017-08-27] MEDS: magnesium 1gm/100ml D5W IVPB 100 ML IV PRN (07:49)
[2017-08-27] MEDS: docusate sod 100mg capsule PO SCH ×2 (07:50→19:10)
[2017-08-27] MEDS: tizanidine 4mg tablet PO SCH (07:50)
[2017-08-27] MEDS: levoTHYROXINE 88mcg tablet PO SCH (07:50)
[2017-08-27] MEDS: citalopram 20mg tablet PO SCH (07:50)
[2017-08-27] MEDS: carVEDilol 12.5mg tablet PO SCH ×2 (07:50→19:09)
[2017-08-27] MEDS: diltiazem 30mg tablet PO SCH ×3 (07:50→19:09)
[2017-08-27] MEDS: K and/or MAG REPLACEMENT MC SCH (08:00)
[2017-08-27 11:00] VITALS: BP 96/58
[2017-08-27 15:00] VITALS: BP 107/55
[2017-08-27] MEDS: pantoprazole 40mg Tablet.DR PO SCH (16:45)
[2017-08-27 19:00] VITALS: BP 121/52
[2017-08-27] MEDS: ondansetron/PF 4mg/2ml inj IV PRN (20:09)
[2017-08-27] MEDS ORDERED: warfarin 3mg tablet PO SCH (21:00)
[2017-08-27 23:00] VITALS: BP 117/61
[2017-08-28 01:19] LABS: INR 1.6 INR; PROTHROMBIN TIME 16.3 SECONDS (9.0-12.0)
[2017-08-28 03:00] VITALS: BP 136/69
[2017-08-28] MEDS: morphine 4 MG/ML inj SYRINge IV PRN ×4 (05:49→18:47)
[2017-08-28 06:00] VITALS: BP 152/82
[2017-08-28] MEDS: carVEDilol 12.5mg tablet PO SCH ×2 (07:46→20:25)
[2017-08-28] MEDS: docusate sod 100mg capsule PO SCH ×2 (07:47→20:25)
[2017-08-28] MEDS: citalopram 20mg tablet PO SCH (07:47)
[2017-08-28] MEDS: tizanidine 4mg tablet PO SCH (07:47)
[2017-08-28] MEDS: levoTHYROXINE 88mcg tablet PO SCH (07:47)
[2017-08-28] MEDS: sodium bicarbonate (8.4%) inj. 50 MEQ in normal saline 1000ml 1,000 ML IV SCH (07:50)
[2017-08-28] MEDS: K and/or MAG REPLACEMENT MC SCH (08:00)
[2017-08-28 08:05] LABS: BASOPHILS # (AUTO) 0.1 X10'3 (0-0.2); BASOPHILS % (AUTO) 1.1 % (0-1); EOSINOPHILS # (AUTO) 0.1 X10'3 (0-0.9); EOSINOPHILS % (AUTO) 2.8 % (0-6); HEMOGLOBIN 9.4 g/dl (12.0-16.0); LYMPHOCYTES # (AUTO) 1.3 X10'3 (1.1-4.8); LYMPHOCYTES % (AUTO) 29.1 % (21-51); MEAN CORPUSCULAR HEMOGLOBIN 25.5 PG (27.0-31.0); MEAN CORPUSCULAR HGB CONC 32.5 % (33.0-36.5); MEAN CORPUSCULAR VOLUME 78.4 FL (78-98); MEAN PLATELET VOLUME 9.3 FL (7.4-10.4); MONOCYTES # (AUTO) 0.4 X10'3 (0-0.9); MONOCYTES % (AUTO) 8.1 % (2-12); NEUTROPHILS # (AUTO) 2.7 X10'3 (1.8-7.7); NEUTROPHILS % (AUTO) 58.9 % (42-75); PLATELET COUNT 226 X10'3 (140-440); RED CELL DISTRIBUTION WIDTH 19.2 % (11.5-14.5); WHITE BLOOD COUNT 4.6 X10'3 (4.5-11.0)
[2017-08-28 08:21] LABS: ALANINE AMINOTRANSFERASE 11 U/L (12-78); ALBUMIN 2.5 G/DL (3.4-5.0); ALBUMIN/GLOBULIN RATIO 0.7 (1.1-1.5); ALKALINE PHOSPHATASE 117 IU/L (46-116); ANION GAP 8 (8-16); ASPARTATE AMINO TRANSFERASE 12 U/L (10-37); BILIRUBIN,TOTAL 0.2 MG/DL (0.1-1.0); BLOOD UREA NITROGEN 10 MG/DL (7-18); BUN/CREATININE RATIO 9.3 (6.6-38.0); CALCIUM 8.2 MG/DL (8.5-10.1); CHLORIDE 107 MMOL/L (99-107); CREATININE 1.08 MG/DL (0.40-0.90); GLUCOSE 87 MG/DL (70-104); MAGNESIUM 1.4 MG/DL (1.5-2.4); POTASSIUM 3.3 MMOL/L (3.5-5.1); SODIUM 143 MMOL/L (135-145); TOTAL CARBON DIOXIDE 27.7 MMOL/L (24-32); TOTAL PROTEIN 6.3 G/DL (6.4-8.2); eGFR 49 ML/MIN
[2017-08-28] MEDS: potassium Cl 20 mEq SR tablet PO PRN ×3 (09:10→20:25)
[2017-08-28 09:38] LABS: ANISOCYTOSIS 2+; HYPOCHROMASIA 1+; PLATELET ESTIMATE NORMAL
[2017-08-28 09:39] LABS: ELLIPTOCYTES 1+; SCHISTOCYTES 1+
[2017-08-28 11:00] VITALS: BP_SYST 140; BP_SYST 151; BP_DIAS 69; BP_DIAS 73
[2017-08-28 15:00] VITALS: BP 155/79
[2017-08-28] MEDS: pantoprazole 40mg Tablet.DR PO SCH (17:41)
[2017-08-28] MEDS ORDERED: LACTOSE-FREE FOOD 237ML (BOOST) PO SCH (18:00)
[2017-08-28] MEDS: magnesium 1gm/100ml D5W IVPB 100 ML IV PRN ×2 (18:47→20:28)
[2017-08-28 19:00] VITALS: BP 122/60
[2017-08-28] MEDS ORDERED: warfarin 3mg tablet PO ONE (21:00)
[2017-08-28 23:00] VITALS: BP 114/60
[2017-08-29] MEDS: morphine 4 MG/ML inj SYRINge IV PRN ×5 (00:16→23:56)
[2017-08-29 02:45] LABS: BASOPHILS % (AUTO) 0.9 % (0-1); EOSINOPHILS # (AUTO) 0.1 X10'3 (0-0.9); EOSINOPHILS % (AUTO) 2.2 % (0-6); HEMATOCRIT 28.9 % (35.0-45.0); HEMOGLOBIN 9.4 g/dl (12.0-16.0); LYMPHOCYTES # (AUTO) 1.6 X10'3 (1.1-4.8); LYMPHOCYTES % (AUTO) 31.1 % (21-51); MEAN CORPUSCULAR HEMOGLOBIN 25.3 PG (27.0-31.0); MEAN CORPUSCULAR HGB CONC 32.5 % (33.0-36.5); MEAN PLATELET VOLUME 8.8 FL (7.4-10.4); MONOCYTES # (AUTO) 0.2 X10'3 (0-0.9); MONOCYTES % (AUTO) 4.5 % (2-12); NEUTROPHILS # (AUTO) 3.2 X10'3 (1.8-7.7); NEUTROPHILS % (AUTO) 61.3 % (42-75); PLATELET COUNT 229 X10'3 (140-440); RED CELL DISTRIBUTION WIDTH 19.3 % (11.5-14.5); WHITE BLOOD COUNT 5.2 X10'3 (4.5-11.0)
[2017-08-29 03:00] VITALS: BP 107/70
[2017-08-29 03:00] LABS: INR 2.1 INR; PROTHROMBIN TIME 20.8 SECONDS (9.0-12.0)
[2017-08-29 03:07] LABS: ALANINE AMINOTRANSFERASE 12 U/L (12-78); ALBUMIN 2.5 G/DL (3.4-5.0); ALBUMIN/GLOBULIN RATIO 0.7 (1.1-1.5); ALKALINE PHOSPHATASE 115 IU/L (46-116); ANION GAP 8 (8-16); ASPARTATE AMINO TRANSFERASE 17 U/L (10-37); BILIRUBIN,TOTAL 0.3 MG/DL (0.1-1.0); BLOOD UREA NITROGEN 7 MG/DL (7-18); BUN/CREATININE RATIO 7.2 (6.6-38.0); CALCIUM 8.5 MG/DL (8.5-10.1); CHLORIDE 105 MMOL/L (99-107); CREATININE 0.97 MG/DL (0.40-0.90); GLUCOSE 88 MG/DL (70-104); MAGNESIUM 2.7 MG/DL (1.5-2.4); POTASSIUM 4.2 MMOL/L (3.5-5.1); SODIUM 140 MMOL/L (135-145); TOTAL CARBON DIOXIDE 26.8 MMOL/L (24-32); TOTAL PROTEIN 6.3 G/DL (6.4-8.2); eGFR 56 ML/MIN
[2017-08-29 06:00] VITALS: BP 143/93
[2017-08-29] MEDS: citalopram 20mg tablet PO SCH (07:47)
[2017-08-29] MEDS: levoTHYROXINE 88mcg tablet PO SCH (07:48)
[2017-08-29] MEDS: tizanidine 4mg tablet PO SCH (07:48)
[2017-08-29] MEDS: docusate sod 100mg capsule PO SCH ×2 (07:48→19:29)
[2017-08-29] MEDS: carVEDilol 12.5mg tablet PO SCH ×2 (07:48→19:29)
[2017-08-29] MEDS: K and/or MAG REPLACEMENT MC SCH (07:55)
[2017-08-29 11:00] VITALS: BP 125/62
[2017-08-29] MEDS ORDERED: oxyCODONE IR 5mg (immed. release) tablet PO PRN (11:00)
[2017-08-29] MEDS: oxyCODONE IR 5mg (immed. release) tablet PO PRN (13:00)
[2017-08-29 15:00] VITALS: BP 113/59
[2017-08-29] MEDS: pantoprazole 40mg Tablet.DR PO SCH (17:46)
[2017-08-29 19:00] VITALS: BP 125/61
[2017-08-29] MEDS ORDERED: warfarin 1mg tablet PO ONE (21:00)
[2017-08-29 23:00] VITALS: BP 116/61
[2017-08-30 03:00] VITALS: BP 143/78
[2017-08-30] MEDS: morphine 4 MG/ML inj SYRINge IV PRN ×2 (04:22→12:31)
[2017-08-30 06:00] VITALS: BP 178/97
[2017-08-30] MEDS: carVEDilol 12.5mg tablet PO SCH (07:26)
[2017-08-30] MEDS: docusate sod 100mg capsule PO SCH (07:32)
[2017-08-30] MEDS: levoTHYROXINE 88mcg tablet PO SCH (07:32)
[2017-08-30] MEDS: citalopram 20mg tablet PO SCH (07:32)
[2017-08-30] MEDS: oxyCODONE IR 5mg (immed. release) tablet PO PRN ×3 (07:32→14:36)
[2017-08-30] MEDS: tizanidine 4mg tablet PO SCH (07:32)
[2017-08-30] MEDS: K and/or MAG REPLACEMENT MC SCH (08:00)
[2017-08-30 08:03] LABS: BASOPHILS % (AUTO) 0.6 % (0-1); EOSINOPHILS # (AUTO) 0.1 X10'3 (0-0.9); EOSINOPHILS % (AUTO) 1.5 % (0-6); HEMATOCRIT 31.8 % (35.0-45.0); HEMOGLOBIN 10.3 g/dl (12.0-16.0); LYMPHOCYTES # (AUTO) 1.6 X10'3 (1.1-4.8); LYMPHOCYTES % (AUTO) 31.5 % (21-51); MEAN CORPUSCULAR HGB CONC 32.2 % (33.0-36.5); MEAN CORPUSCULAR VOLUME 77.6 FL (78-98); MEAN PLATELET VOLUME 10.1 FL (7.4-10.4); MONOCYTES # (AUTO) 0.3 X10'3 (0-0.9); MONOCYTES % (AUTO) 5.1 % (2-12); NEUTROPHILS # (AUTO) 3.1 X10'3 (1.8-7.7); NEUTROPHILS % (AUTO) 61.3 % (42-75); PLATELET COUNT 124 X10'3 (140-440); RED CELL DISTRIBUTION WIDTH 19.4 % (11.5-14.5); WHITE BLOOD COUNT 5.1 X10'3 (4.5-11.0)
[2017-08-30 08:10] LABS: INR 2.5 INR; PROTHROMBIN TIME 24.8 SECONDS (9.0-12.0)
[2017-08-30 08:27] LABS: ALANINE AMINOTRANSFERASE 14 U/L (12-78); ALBUMIN 2.7 G/DL (3.4-5.0); ALBUMIN/GLOBULIN RATIO 0.7 (1.1-1.5); ALKALINE PHOSPHATASE 121 IU/L (46-116); ANION GAP 11 (8-16); ASPARTATE AMINO TRANSFERASE 14 U/L (10-37); BILIRUBIN,TOTAL 0.3 MG/DL (0.1-1.0); BLOOD UREA NITROGEN 9 MG/DL (7-18); BUN/CREATININE RATIO 7.2 (6.6-38.0); CHLORIDE 106 MMOL/L (99-107); CREATININE 1.25 MG/DL (0.40-0.90); GLUCOSE 89 MG/DL (70-104); MAGNESIUM 1.8 MG/DL (1.5-2.4); POTASSIUM 3.8 MMOL/L (3.5-5.1); SODIUM 140 MMOL/L (135-145); TOTAL CARBON DIOXIDE 22.9 MMOL/L (24-32); TOTAL PROTEIN 6.8 G/DL (6.4-8.2); eGFR 42 ML/MIN
[2017-08-30 08:49] LABS: ANISOCYTOSIS 2+; LARGE PLATELETS FEW; MICROCYTOSIS 1+; PLATELET ESTIMATE DECREASED; POIKILOCYTOSIS FEW; POLYCHROMASIA FEW
[2017-08-30 11:00] VITALS: BP 142/76
[2017-08-30] MEDS ORDERED: morphine 2 MG/ML inj. syringe IV PRN ×2 (13:30)
[2017-08-30] MEDS ORDERED: warfarin 1mg tablet PO ONE (21:00)
== END 2017-08-30 17:15 | disposition home health service (06) | DRG 309 ==
LOC: ER 11:21 → ED HOLD 13:08 → EDBEDREQ 14:20 → PCU 3S 15:48
PROVIDERS: ADMIT Family Medicine; ATTEND Family Medicine
DX: I48.91 Unspecified atrial fibrillation (principal); I82.509 Chronic embolism and thrombosis of unspecified deep veins of unspecified lower extremity; N17.9 Acute kidney failure, unspecified; Z96.649 Presence of unspecified artificial hip joint; I73.9 Peripheral vascular disease, unspecified; M16.12 Unilateral primary osteoarthritis, left hip; J44.9 Chronic obstructive pulmonary disease, unspecified; I12.9 Hypertensive chronic kidney disease with stage 1 through stage 4 chronic kidney disease, or unspecified chronic kidney disease; N18.3 Chronic kidney disease, stage 3 (moderate); Z60.2 Problems related to living alone; R00.1 Bradycardia, unspecified; T46.1X5A Adverse effect of calcium-channel blockers, initial encounter; I95.2 Hypotension due to drugs; Z90.5 Acquired absence of kidney; Z90.710 Acquired absence of both cervix and uterus; Z99.3 Dependence on wheelchair; Z74.01 Bed confinement status; S32.501G Unspecified fracture of right pubis, subsequent encounter for fracture with delayed healing; Z90.722 Acquired absence of ovaries, bilateral; Z90.49 Acquired absence of other specified parts of digestive tract; Z88.2 Allergy status to sulfonamides; Z79.01 Long term (current) use of anticoagulants; Z79.899 Other long term (current) drug therapy; Z85.43 Personal history of malignant neoplasm of ovary; Z87.891 Personal history of nicotine dependence; Z85.528 Personal history of other malignant neoplasm of kidney; Z86.73 Personal history of transient ischemic attack (TIA), and cerebral infarction without residual deficits; Z82.49 Family history of ischemic heart disease and other diseases of the circulatory system; Y92.238 Other place in hospital as the place of occurrence of the external cause; Y93.89 Activity, other specified; Y92.89 Other specified places as the place of occurrence of the external cause; Y99.8 Other external cause status
CPT/HCPCS: 36415; 71045; 71250; 80053; 80061; 83735; 84443; 84484; 85025; 85610; 85730; 87070; 93005; 94760; 96365; 96375; 99285; J1644; J2270; J2405; J3475; J3490

== ENCOUNTER 2017-09-08 15:49 | Observation (INO) | payer MEDICARE, MEDICAID ==
[~2017-09-08] VITALS: Ht 165.1 cm; Wt 67.5 kg
[~2017-09-08 15:49] MED LIST changes: -AMLO5TAB16 PO; -HYDR-569 PO
[2017-09-08 16:22] LABS: HEMATOCRIT 26.3 % (35.0-45.0); HEMOGLOBIN 8.7 g/dl (12.0-16.0); MEAN CORPUSCULAR HEMOGLOBIN 25.4 PG (27.0-31.0); MEAN CORPUSCULAR HGB CONC 32.9 % (33.0-36.5); MEAN CORPUSCULAR VOLUME 77.3 FL (78-98); MEAN PLATELET VOLUME 8.6 FL (7.4-10.4); PLATELET COUNT 236 X10'3 (140-440); RED BLOOD COUNT 3.41 X10'6 (4.20-5.60); RED CELL DISTRIBUTION WIDTH 20.7 % (11.5-14.5); WHITE BLOOD COUNT 4.8 X10'3 (4.5-11.0)
[2017-09-08 16:45] LABS: ALANINE AMINOTRANSFERASE 143 U/L (12-78); ALBUMIN 2.2 G/DL (3.4-5.0); ALBUMIN/GLOBULIN RATIO 0.8 (1.1-1.5); ALKALINE PHOSPHATASE 101 IU/L (46-116); ANION GAP 13 (8-16); ASPARTATE AMINO TRANSFERASE 131 U/L (10-37); BILIRUBIN,TOTAL 0.7 MG/DL (0.1-1.0); BLOOD UREA NITROGEN 25 MG/DL (7-18); BUN/CREATININE RATIO 20.5 (6.6-38.0); CALCIUM 6.6 MG/DL (8.5-10.1); CHLORIDE 109 MMOL/L (99-107); CREATININE 1.22 MG/DL (0.40-0.90); GLUCOSE 72 MG/DL (70-104); POTASSIUM 3.1 MMOL/L (3.5-5.1); SODIUM 138 MMOL/L (135-145); TOTAL CARBON DIOXIDE 16.3 MMOL/L (24-32); TOTAL PROTEIN 4.9 G/DL (6.4-8.2); eGFR 43 ML/MIN
[2017-09-08 17:25] LABS: ANISOCYTOSIS 3+; PLATELET ESTIMATE NORMAL; TOTAL CELLS COUNTED 100
[2017-09-08 17:26] LABS: BURR CELLS FEW; ELLIPTOCYTES FEW; MICROCYTOSIS 1+; POIKILOCYTOSIS 1+; TEAR DROP CELLS FEW
[2017-09-08] MEDS ORDERED: morphine 10mg/ml inj. IV ONE (17:35)
[2017-09-08] MEDS ORDERED: magnesium oxide 400mg tablet PO ONE ×2 (18:00→18:05)
[2017-09-08] MEDS ORDERED: potassium Cl 20 mEq SR tablet PO STA (18:03)
[2017-09-08] MEDS ORDERED: normal saline 1000ML IV soln IVB ONE (18:05)
[2017-09-08] MEDS ORDERED: HYDROmorphone 2mg tablet PO ONE ×2 (18:10→21:50)
[2017-09-08 18:13] LABS: PARTIAL THROMBOPLASTIN TIME 47 SECONDS (22-32)
[2017-09-08 18:35] LABS: MAGNESIUM 1.1 MG/DL (1.5-2.4)
[2017-09-08] MEDS ORDERED: ondansetron/PF 4mg/2ml inj IV ONE ×2 (18:35→23:10)
[2017-09-08 20:07] LABS: INR > 12.0 INR; PROTHROMBIN TIME > 120.0 SECONDS (9-12)
[2017-09-08] MEDS ORDERED: temazepam 15mg capsule PO PRN (21:00)
[2017-09-08] MEDS ORDERED: phytonadione 10 MG/1 ML amp PO ONE (22:05)
[2017-09-08] MEDS ORDERED: phytonadione inj. 5 MG in normal saline 100ml IV soln 99.5 ML IV ONE (22:05)
[2017-09-08] MEDS ORDERED: magnesium hydroxide 30ml (MOM) UD suspension PO PRN (22:55)
[2017-09-08] MEDS ORDERED: HYDROcodone/acetaminophen 10/325mg tab PO PRN (22:55)
[2017-09-08] MEDS ORDERED: magnesium 1gm/100ml D5W IVPB 100 ML IV PRN (22:55)
[2017-09-08] MEDS ORDERED: HYDROcodone/acetaminophen 5mg/325mg tablet PO PRN (22:55)
[2017-09-08] MEDS ORDERED: potassium Cl 40MEQ/NS 500ml 500 ML IV PRN ×2 (22:55)
[2017-09-08] MEDS ORDERED: nitroGLYCERIN 0.4mg SUBLingual tab SL PRN (22:55)
[2017-09-08] MEDS ORDERED: acetaminophen 325mg tablet PO PRN ×2 (22:55)
[2017-09-08] MEDS ORDERED: magnesium 4gm in 100ml NS 100 ML IV PRN (22:55)
[2017-09-08] MEDS ORDERED: mag hydrox/Alum hydrox/simeth 30ml oral suspension PO PRN (22:55)
[2017-09-08] MEDS ORDERED: regadenoson 0.4mg/5ml syringe IV ONE (22:55)
[2017-09-08] MEDS ORDERED: CAFFEINE CITRATE 60 MG/3 ML injection vial IV PRN (22:55)
[2017-09-08] MEDS ORDERED: magnesium Cl slow-release 64mg tablet PO PRN (22:55)
[2017-09-08] MEDS ORDERED: potassium Cl 20 mEq SR tablet PO PRN ×2 (22:55)
[2017-09-08] MEDS ORDERED: metoprolol tartrate 1mg/ml inj IV PRN (22:55)
[2017-09-08] MEDS ORDERED: lisinopril 20mg tablet PO SCH (23:16)
[2017-09-08] MEDS: normal saline 1000ml 1,000 ML IV SCH (23:18)
[2017-09-08] MEDS: oxyCODONE IR 5mg (immed. release) tablet PO SCH (23:20)
[2017-09-08] MEDS ORDERED: tizanidine 4mg tablet PO SCH (23:25)
[2017-09-08] MEDS ORDERED: regadenoson 0.4mg/5ml syringe IV PRN (23:35)
[2017-09-09] VITALS (11 sets, daily range): BP systolic 80–171; BP diastolic 45–93
[2017-09-09] MEDS: normal saline 1000ml 1,000 ML IV SCH ×2 (00:45→07:10)
[2017-09-09] MEDS: proCHLORperazine 10mg tablet PO PRN ×2 (00:49→11:21)
[2017-09-09] MEDS: oxyCODONE IR 5mg (immed. release) tablet PO SCH ×3 (02:00→11:22)
[2017-09-09 04:48] LABS: BASOPHILS % (AUTO) 0.7 % (0-1); EOSINOPHILS # (AUTO) 0.1 X10'3 (0-0.9); HEMATOCRIT 31.5 % (35.0-45.0); HEMOGLOBIN 10.2 g/dl (12.0-16.0); LYMPHOCYTES # (AUTO) 0.7 X10'3 (1.1-4.8); LYMPHOCYTES % (AUTO) 16.9 % (21-51); MEAN CORPUSCULAR HEMOGLOBIN 25.5 PG (27.0-31.0); MEAN CORPUSCULAR HGB CONC 32.3 % (33.0-36.5); MEAN CORPUSCULAR VOLUME 78.7 FL (78-98); MEAN PLATELET VOLUME 8.6 FL (7.4-10.4); MONOCYTES # (AUTO) 0.1 X10'3 (0-0.9); NEUTROPHILS # (AUTO) 3.1 X10'3 (1.8-7.7); NEUTROPHILS % (AUTO) 76.4 % (42-75); PLATELET COUNT 240 X10'3 (140-440); RED CELL DISTRIBUTION WIDTH 20.5 % (11.5-14.5); WHITE BLOOD COUNT 4.1 X10'3 (4.5-11.0)
[2017-09-09 05:08] LABS: ALBUMIN 2.6 G/DL (3.4-5.0); ANION GAP 11 (8-16); BLOOD UREA NITROGEN 29 MG/DL (7-18); BUN/CREATININE RATIO 20.3 (6.6-38.0); CALCIUM 8.6 MG/DL (8.5-10.1); CHLORIDE 106 MMOL/L (99-107); CREATININE 1.43 MG/DL (0.40-0.90); GLUCOSE 79 MG/DL (70-104); MAGNESIUM 1.4 MG/DL (1.5-2.4); POTASSIUM 4.3 MMOL/L (3.5-5.1); SODIUM 135 MMOL/L (135-145); eGFR 36 ML/MIN
[2017-09-09 05:15] LABS: PARTIAL THROMBOPLASTIN TIME 57 SECONDS (22-32)
[2017-09-09 06:57] LABS: ANISOCYTOSIS 3+; PLATELET ESTIMATE NORMAL
[2017-09-09 06:58] LABS: HYPOCHROMASIA 1+; MICROCYTOSIS 1+
[2017-09-09] MEDS ORDERED: levoTHYROXINE 88mcg tablet PO SCH (07:00)
[2017-09-09] MEDS ORDERED: pantoprazole 40mg Tablet.DR PO PRN (07:30)
[2017-09-09] MEDS ORDERED: citalopram 20mg tablet PO SCH (08:00)
[2017-09-09] MEDS ORDERED: K and/or MAG REPLACEMENT MC SCH (08:00)
[2017-09-09] MEDS ORDERED: carVEDilol 12.5mg tablet PO SCH (08:00)
[2017-09-09 08:16] LABS: INR > 12.0 INR; PROTHROMBIN TIME 110.2 SECONDS (9-12)
[2017-09-09] MEDS ORDERED: CAFFEINE CITRATE 60 MG/3 ML injection vial IV ONE (09:30)
[2017-09-09] MEDS ORDERED: regadenoson 0.4mg/5ml syringe IV ONE (09:30)
[2017-09-09] MEDS ORDERED: ondansetron/PF 4mg/2ml inj ONE (10:11)
[2017-09-09] MEDS: ondansetron/PF 4mg/2ml inj IV PRN ×2 (10:12→13:03)
[2017-09-09] MEDS ORDERED: ATOR10TA PO (12:24)
[2017-09-09] MEDS ORDERED: NITR0.4T51 SL (12:24)
== END 2017-09-09 14:08 | disposition home or self-care (01) ==
LOC: ER 15:49 → ED HOLD 22:54 → PCU 3S 23:44
PROVIDERS: ADMIT Hospitalist; ATTEND Family Medicine
DX: M94.0 Chondrocostal junction syndrome [Tietze] (principal); R94.39 Abnormal result of other cardiovascular function study; D64.9 Anemia, unspecified; E43 Unspecified severe protein-calorie malnutrition; E87.6 Hypokalemia; D68.32 Hemorrhagic disorder due to extrinsic circulating anticoagulants; E83.42 Hypomagnesemia; I48.91 Unspecified atrial fibrillation; I73.9 Peripheral vascular disease, unspecified; J44.9 Chronic obstructive pulmonary disease, unspecified; S32.599A Other specified fracture of unspecified pubis, initial encounter for closed fracture; C64.2 Malignant neoplasm of left kidney, except renal pelvis; E87.2 Acidosis; G89.29 Other chronic pain; N18.9 Chronic kidney disease, unspecified; Z86.73 Personal history of transient ischemic attack (TIA), and cerebral infarction without residual deficits; Z87.891 Personal history of nicotine dependence; Z79.01 Long term (current) use of anticoagulants; Z86.718 Personal history of other venous thrombosis and embolism; Z96.649 Presence of unspecified artificial hip joint; Z99.3 Dependence on wheelchair; Z90.710 Acquired absence of both cervix and uterus; Z90.5 Acquired absence of kidney; Z85.43 Personal history of malignant neoplasm of ovary; Z82.49 Family history of ischemic heart disease and other diseases of the circulatory system; X58.XXXA Exposure to other specified factors, initial encounter; Y93.89 Activity, other specified; Y92.89 Other specified places as the place of occurrence of the external cause; Y99.8 Other external cause status
CPT/HCPCS: 36415; 71045; 78452; 80048; 80053; 83735; 84443; 84484; 85025; 85610; 85730; 86885; 86900; 86901; 87070; 93005; 93017; 96361; 96374; 96375; 96376; 99285; A9500; G0378; J2270; J2405; J7030; Q0164; J3430

== ENCOUNTER 2017-09-26 19:18 | Inpatient (IN) | payer MEDICARE, MEDICAID ==
[~2017-09-26] VITALS: Ht 165.1 cm; Wt 66.0 kg
[~2017-09-26 19:18] MED LIST changes: +ATOR10TA PO; +NITR0.4T51 SL; -WARF3TAB56 PO
[2017-09-26 19:37] LABS: BASOPHILS % (AUTO) 0.9 % (0-1); EOSINOPHILS # (AUTO) 0.1 X10'3 (0-0.9); HEMATOCRIT 30.8 % (35.0-45.0); LYMPHOCYTES # (AUTO) 1.7 X10'3 (1.1-4.8); LYMPHOCYTES % (AUTO) 35.4 % (21-51); MEAN CORPUSCULAR HEMOGLOBIN 25.4 PG (27.0-31.0); MEAN CORPUSCULAR HGB CONC 32.5 % (33.0-36.5); MEAN CORPUSCULAR VOLUME 78.1 FL (78-98); MONOCYTES # (AUTO) 0.5 X10'3 (0-0.9); MONOCYTES % (AUTO) 11.1 % (2-12); NEUTROPHILS # (AUTO) 2.3 X10'3 (1.8-7.7); NEUTROPHILS % (AUTO) 49.6 % (42-75); PLATELET COUNT 238 X10'3 (140-440); RED BLOOD COUNT 3.94 X10'6 (4.20-5.60); RED CELL DISTRIBUTION WIDTH 20.4 % (11.5-14.5); WHITE BLOOD COUNT 4.7 X10'3 (4.5-11.0)
[2017-09-26 19:52] LABS: ALANINE AMINOTRANSFERASE 14 U/L (12-78); ALBUMIN 2.4 G/DL (3.4-5.0); ALBUMIN/GLOBULIN RATIO 0.6 (1.1-1.5); ALKALINE PHOSPHATASE 101 IU/L (46-116); ANION GAP 9 (8-16); ASPARTATE AMINO TRANSFERASE 16 U/L (10-37); BILIRUBIN,TOTAL 0.3 MG/DL (0.1-1.0); BLOOD UREA NITROGEN 22 MG/DL (7-18); CALCIUM 8.7 MG/DL (8.5-10.1); CHLORIDE 108 MMOL/L (99-107); CREATININE 1.05 MG/DL (0.40-0.90); GLUCOSE 123 MG/DL (70-104); POTASSIUM 3.3 MMOL/L (3.5-5.1); SODIUM 142 MMOL/L (135-145); TOTAL PROTEIN 6.5 G/DL (6.4-8.2); eGFR 51 ML/MIN
[2017-09-26 20:02] LABS: INR 3.2 INR; PARTIAL THROMBOPLASTIN TIME 39 SECONDS (22-32); PROTHROMBIN TIME 31.9 SECONDS (9.0-12.0)
[2017-09-26] MEDS ORDERED: nitroGLYCERIN 0.4mg SUBLingual tab SL PRN (20:20)
[2017-09-26] MEDS ORDERED: aspirin 81mg tab.chew PO ONE (20:20)
[2017-09-26] MEDS ORDERED: morphine 4 MG/ML inj SYRINge IV ONE (20:20)
[2017-09-26] MEDS ORDERED: normal saline 1000ML IV soln IVB ONE (20:20)
[2017-09-26 21:33] LABS: D-DIMER 1.58 MG/L FEU (0-0.50)
[2017-09-26 21:43] LABS: ANISOCYTOSIS 2+; PLATELET ESTIMATE NORMAL
[2017-09-26 21:44] LABS: MICROCYTOSIS 1+
[2017-09-26 21:46] LABS: CREATINE KINASE 26 U/L (26-192); LIPASE 70 U/L (73-393)
[2017-09-26] MEDS ORDERED: magnesium hydroxide 30ml (MOM) UD suspension PO PRN (22:45)
[2017-09-26] MEDS ORDERED: acetaminophen 325mg tablet PO PRN (22:45)
[2017-09-26] MEDS ORDERED: morphine 2 MG/ML inj. syringe IV PRN (22:45)
[2017-09-26] MEDS ORDERED: ondansetron/PF 4mg/2ml inj IV PRN (22:45)
[2017-09-26] MEDS ORDERED: mag hydrox/Alum hydrox/simeth 30ml oral suspension PO PRN (22:45)
[2017-09-26] MEDS ORDERED: WARF3TAB56 PO (22:47)
[2017-09-26] MEDS ORDERED: proCHLORperazine 10mg tablet PO PRN (22:55)
[2017-09-26] MEDS ORDERED: pantoprazole 40mg Tablet.DR PO PRN (22:55)
[2017-09-27] VITALS: BP 128/89
[2017-09-27] MEDS: morphine 2 MG/ML inj. syringe IV PRN ×4 (00:29→14:52)
[2017-09-27] MEDS ORDERED: temazepam 15mg capsule PO PRN (02:15)
[2017-09-27 02:25] LABS: BASOPHILS % (AUTO) 1.1 % (0-1); EOSINOPHILS # (AUTO) 0.1 X10'3 (0-0.9); HEMATOCRIT 32.1 % (35.0-45.0); HEMOGLOBIN 10.2 g/dl (12.0-16.0); LYMPHOCYTES # (AUTO) 1.4 X10'3 (1.1-4.8); LYMPHOCYTES % (AUTO) 34.7 % (21-51); MEAN CORPUSCULAR HEMOGLOBIN 25.3 PG (27.0-31.0); MEAN CORPUSCULAR HGB CONC 31.9 % (33.0-36.5); MEAN CORPUSCULAR VOLUME 79.4 FL (78-98); MEAN PLATELET VOLUME 9.9 FL (7.4-10.4); MONOCYTES # (AUTO) 0.3 X10'3 (0-0.9); MONOCYTES % (AUTO) 7.7 % (2-12); NEUTROPHILS # (AUTO) 2.2 X10'3 (1.8-7.7); NEUTROPHILS % (AUTO) 54.5 % (42-75); PLATELET COUNT 223 X10'3 (140-440); RED BLOOD COUNT 4.04 X10'6 (4.20-5.60); RED CELL DISTRIBUTION WIDTH 20.6 % (11.5-14.5); WHITE BLOOD COUNT 4.1 X10'3 (4.5-11.0)
[2017-09-27] MEDS: oxyCODONE IR 5mg (immed. release) tablet PO SCH ×3 (02:34→13:23)
[2017-09-27 02:44] LABS: ALANINE AMINOTRANSFERASE 16 U/L (12-78); ALBUMIN 2.5 G/DL (3.4-5.0); ALBUMIN/GLOBULIN RATIO 0.6 (1.1-1.5); ALKALINE PHOSPHATASE 98 IU/L (46-116); ANION GAP 5 (8-16); ASPARTATE AMINO TRANSFERASE 15 U/L (10-37); BILIRUBIN,TOTAL 0.3 MG/DL (0.1-1.0); BLOOD UREA NITROGEN 20 MG/DL (7-18); BUN/CREATININE RATIO 18.9 (6.6-38.0); CALCIUM 8.4 MG/DL (8.5-10.1); CHLORIDE 109 MMOL/L (99-107); CREATININE 1.06 MG/DL (0.40-0.90); GLUCOSE 89 MG/DL (70-104); POTASSIUM 3.7 MMOL/L (3.5-5.1); SODIUM 141 MMOL/L (135-145); TOTAL CARBON DIOXIDE 26.6 MMOL/L (24-32); TOTAL PROTEIN 6.4 G/DL (6.4-8.2); eGFR 50 ML/MIN
[2017-09-27 03:00] VITALS: BP 148/83
[2017-09-27 03:53] LABS: ANISOCYTOSIS 3+; HYPOCHROMASIA 1+; MICROCYTOSIS 1+; PLATELET ESTIMATE NORMAL
[2017-09-27 06:00] VITALS: BP 165/94
[2017-09-27] MEDS ORDERED: carVEDilol 12.5mg tablet PO SCH (08:00)
[2017-09-27] MEDS ORDERED: atorvastatin 10mg tablet PO SCH (08:00)
[2017-09-27] MEDS ORDERED: levoTHYROXINE 88mcg tablet PO SCH (08:00)
[2017-09-27] MEDS ORDERED: tizanidine 4mg tablet PO PRN (08:00)
[2017-09-27] MEDS ORDERED: citalopram 20mg tablet PO SCH (08:00)
[2017-09-27 11:00] VITALS: BP 135/89
[2017-09-27] MEDS ORDERED: NITR0.4T51 SL (13:54)
[2017-09-27] MEDS ORDERED: ASPI-611 PO (13:55)
[2017-09-27] MEDS ORDERED: ACET-1008 PO (13:58)
[2017-09-27 14:14] LABS: INR 3.9 INR; PROTHROMBIN TIME 38.4 SECONDS (9.0-12.0)
[2017-09-27] MEDS ORDERED: lisinopril 20mg tablet PO SCH (21:00)
== END 2017-09-27 15:15 | disposition home health service (06) | DRG 206 ==
LOC: ER 19:19 → ED HOLD 22:42 → PCU 3S 23:59
PROVIDERS: ADMIT Internal Medicine; ATTEND Family Medicine
DX: M94.0 Chondrocostal junction syndrome [Tietze] (principal); I20.0 Unstable angina; E44.0 Moderate protein-calorie malnutrition; I11.0 Hypertensive heart disease with heart failure; Z60.2 Problems related to living alone; I48.0 Paroxysmal atrial fibrillation; D63.8 Anemia in other chronic diseases classified elsewhere; I50.9 Heart failure, unspecified; Z82.49 Family history of ischemic heart disease and other diseases of the circulatory system; Z85.42 Personal history of malignant neoplasm of other parts of uterus; Z85.43 Personal history of malignant neoplasm of ovary; Z86.73 Personal history of transient ischemic attack (TIA), and cerebral infarction without residual deficits; Z87.891 Personal history of nicotine dependence; Z90.5 Acquired absence of kidney; Z99.3 Dependence on wheelchair; Z88.2 Allergy status to sulfonamides; Z86.718 Personal history of other venous thrombosis and embolism; Z79.899 Other long term (current) drug therapy; Z79.01 Long term (current) use of anticoagulants
CPT/HCPCS: 36415; 71045; 80053; 82550; 82553; 83690; 83874; 83880; 84484; 85025; 85379; 85610; 85730; 87070; 93005; 96374; 99285; J2270; J7030

== ENCOUNTER 2017-10-06 10:38 | Inpatient (IN) | payer MEDICARE, MEDICAID ==
[~2017-10-06] VITALS: Ht 165.1 cm; Wt 64.0 kg
[~2017-10-06 10:38] MED LIST changes: +ACET-1008 PO; +ASPI-611 PO; +WARF3TAB56 PO
[2017-10-06 11:30] LABS: ALANINE AMINOTRANSFERASE 29 U/L (12-78); ALBUMIN 2.8 G/DL (3.4-5.0); ALBUMIN/GLOBULIN RATIO 0.7 (1.1-1.5); ALKALINE PHOSPHATASE 136 IU/L (46-116); ANION GAP 10 (8-16); ASPARTATE AMINO TRANSFERASE 40 U/L (10-37); BILIRUBIN,TOTAL 0.4 MG/DL (0.1-1.0); BLOOD UREA NITROGEN 26 MG/DL (7-18); BUN/CREATININE RATIO 21.5 (6.6-38.0); CHLORIDE 101 MMOL/L (99-107); CREATININE 1.21 MG/DL (0.40-0.90); GLUCOSE 117 MG/DL (70-104); POTASSIUM 3.1 MMOL/L (3.5-5.1); SODIUM 132 MMOL/L (135-145); TOTAL CARBON DIOXIDE 20.6 MMOL/L (24-32); TOTAL PROTEIN 6.6 G/DL (6.4-8.2); eGFR 43 ML/MIN
[2017-10-06 11:37] LABS: MAGNESIUM 1.3 MG/DL (1.5-2.4)
[2017-10-06 11:38] LABS: BASOPHILS % (AUTO) 0.7 % (0-1); EOSINOPHILS # (AUTO) 0.1 X10'3 (0-0.9); EOSINOPHILS % (AUTO) 1.5 % (0-6); HEMATOCRIT 35.2 % (35.0-45.0); HEMOGLOBIN 11.2 g/dl (12.0-16.0); LYMPHOCYTES # (AUTO) 1.7 X10'3 (1.1-4.8); LYMPHOCYTES % (AUTO) 29.8 % (21-51); MEAN CORPUSCULAR HEMOGLOBIN 25.7 PG (27.0-31.0); MEAN CORPUSCULAR HGB CONC 31.9 % (33.0-36.5); MEAN CORPUSCULAR VOLUME 80.7 FL (78-98); MEAN PLATELET VOLUME 9.1 FL (7.4-10.4); MONOCYTES # (AUTO) 0.3 X10'3 (0-0.9); MONOCYTES % (AUTO) 5.5 % (2-12); NEUTROPHILS # (AUTO) 3.5 X10'3 (1.8-7.7); NEUTROPHILS % (AUTO) 62.5 % (42-75); PLATELET COUNT 269 X10'3 (140-440); RED BLOOD COUNT 4.36 X10'6 (4.20-5.60); RED CELL DISTRIBUTION WIDTH 19.9 % (11.5-14.5); WHITE BLOOD COUNT 5.6 X10'3 (4.5-11.0)
[2017-10-06] MEDS ORDERED: normal saline 1000ML IV soln IVB ONE ×2 (12:05→12:10)
[2017-10-06] MEDS ORDERED: morphine 4 MG/ML inj SYRINge IV ONE (12:10)
[2017-10-06] MEDS ORDERED: ondansetron/PF 4mg/2ml inj IV ONE (12:10)
[2017-10-06 12:11] LABS: PROTHROMBIN TIME 97.1 SECONDS (9.0-12.0)
[2017-10-06 12:17] LABS: INR > 9.0 INR
[2017-10-06] MEDS ORDERED: phytonadione inj. 5 MG in normal saline 100ml IV soln 99.5 ML IV ONE (12:20)
[2017-10-06] MEDS ORDERED: morphine 10mg/ml inj. IV ONE (12:20)
[2017-10-06 12:31] LABS: D-DIMER 0.95 MG/L FEU (0-0.50)
[2017-10-06] MEDS ORDERED: potassium Cl 20 mEq SR tablet PO STA (13:28)
[2017-10-06] MEDS ORDERED: potassium 10mEq/100ml NS w/LIDOcaine (10mg/bag) IV ONE (13:30)
[2017-10-06] MEDS ORDERED: POTA20TA19 PO (13:44)
[2017-10-06] MEDS ORDERED: ONDA4TAB12 PO (13:44)
[2017-10-06 14:13] LABS: CLARITY,URINE CLEAR (Clear); COLOR,URINE YELLOW (Yellow); GLUCOSE, URINE NEGATIVE (Neg); KETONES,URINE NEGATIVE (Neg); LEUKOCYTE ESTERASE ,URINE NEGATIVE (Neg); NITRITES, URINE NEGATIVE (Neg); OCCULT BLOOD,URINE NEGATIVE (Neg); PH,URINE 5.5 (4.8-8.0); PROTEIN,URINE NEGATIVE (Neg); UROBILINOGEN,URINE 0.2 E.U/dL (0.2-1.0)
[2017-10-06 14:14] LABS: UA COLLECTION TYPE STRAIGHT CATH
[2017-10-06] MEDS ORDERED: oxyCODONE IR 5mg (immed. release) tablet PO ONE (16:05)
[2017-10-06] MEDS ORDERED: metoclopramide 5 mg/ml inj IV ONE (17:05)
[2017-10-06] MEDS ORDERED: phytonadione inj. 10 MG in normal saline 100ml IV soln 99 ML IV ONE (18:15)
[2017-10-06] MEDS ORDERED: HYDROcodone/acetaminophen 5mg/325mg tablet PO PRN (18:15)
[2017-10-06] MEDS ORDERED: potassium Cl 20 mEq SR tablet PO PRN (18:15)
[2017-10-06] MEDS ORDERED: diphenhydrAMINE 25mg capsule PO PRN (18:15)
[2017-10-06] MEDS ORDERED: morphine 4 MG/ML inj SYRINge IV PRN (18:15)
[2017-10-06] MEDS ORDERED: acetaminophen 325mg tablet PO PRN ×2 (18:15)
[2017-10-06] MEDS ORDERED: magnesium hydroxide 30ml (MOM) UD suspension PO PRN (18:15)
[2017-10-06] MEDS ORDERED: mag hydrox/Alum hydrox/simeth 30ml oral suspension PO PRN (18:15)
[2017-10-06] MEDS ORDERED: ondansetron/PF 4mg/2ml inj IV PRN (18:15)
[2017-10-06] MEDS: K and/or MAG REPLACEMENT MC SCH (18:15)
[2017-10-06] MEDS ORDERED: magnesium 4gm in 100ml NS 100 ML IV PRN (18:15)
[2017-10-06] MEDS ORDERED: potassium Cl 40MEQ/NS 500ml 500 ML IV PRN ×2 (18:15)
[2017-10-06] MEDS: normal saline 1000ml 1,000 ML IV SCH (19:08)
[2017-10-06 21:55] VITALS: BP 150/91
[2017-10-06] MEDS: magnesium Cl slow-release 64mg tablet PO PRN (22:26)
[2017-10-06] MEDS: temazepam 15mg capsule PO PRN (23:44)
[2017-10-07] MEDS: oxyCODONE IR 5mg (immed. release) tablet PO PRN ×4 (00:13→18:51)
[2017-10-07 00:18] VITALS: BP 136/86
[2017-10-07] MEDS: normal saline 1000ml 1,000 ML IV SCH ×3 (04:37→23:37)
[2017-10-07 07:06] LABS: BASOPHILS % (AUTO) 0.7 % (0-1); EOSINOPHILS # (AUTO) 0.1 X10'3 (0-0.9); EOSINOPHILS % (AUTO) 2.1 % (0-6); HEMATOCRIT 33.8 % (35.0-45.0); HEMOGLOBIN 10.9 g/dl (12.0-16.0); LYMPHOCYTES % (AUTO) 33.1 % (21-51); MEAN CORPUSCULAR HEMOGLOBIN 25.6 PG (27.0-31.0); MEAN CORPUSCULAR HGB CONC 32.3 % (33.0-36.5); MEAN CORPUSCULAR VOLUME 79.3 FL (78-98); MEAN PLATELET VOLUME 8.7 FL (7.4-10.4); MONOCYTES # (AUTO) 0.4 X10'3 (0-0.9); MONOCYTES % (AUTO) 6.7 % (2-12); NEUTROPHILS # (AUTO) 3.5 X10'3 (1.8-7.7); NEUTROPHILS % (AUTO) 57.4 % (42-75); PLATELET COUNT 304 X10'3 (140-440); RED BLOOD COUNT 4.27 X10'6 (4.20-5.60); WHITE BLOOD COUNT 6.1 X10'3 (4.5-11.0)
[2017-10-07 07:21] LABS: PLATELET ESTIMATE NORMAL
[2017-10-07 07:22] LABS: ANISOCYTOSIS 3+; ELLIPTOCYTES 1+
[2017-10-07 07:25] LABS: ALANINE AMINOTRANSFERASE 40 U/L (12-78); ALBUMIN 2.8 G/DL (3.4-5.0); ALBUMIN/GLOBULIN RATIO 0.8 (1.1-1.5); ALKALINE PHOSPHATASE 157 IU/L (46-116); ANION GAP 12 (8-16); ASPARTATE AMINO TRANSFERASE 39 U/L (10-37); BILIRUBIN,TOTAL 0.4 MG/DL (0.1-1.0); BLOOD UREA NITROGEN 18 MG/DL (7-18); BUN/CREATININE RATIO 15.5 (6.6-38.0); CALCIUM 7.9 MG/DL (8.5-10.1); CHLORIDE 110 MMOL/L (99-107); CREATININE 1.16 MG/DL (0.40-0.90); GLUCOSE 78 MG/DL (70-104); MAGNESIUM 1.3 MG/DL (1.5-2.4); PHOSPHORUS 3.3 MG/DL (2.3-4.5); POTASSIUM 3.1 MMOL/L (3.5-5.1); SODIUM 140 MMOL/L (135-145); TOTAL CARBON DIOXIDE 18.2 MMOL/L (24-32); TOTAL PROTEIN 6.4 G/DL (6.4-8.2); eGFR 45 ML/MIN
[2017-10-07 07:48] VITALS: BP 198/120
[2017-10-07] MEDS: K and/or MAG REPLACEMENT MC SCH (08:00)
[2017-10-07] MEDS: potassium Cl 20 mEq SR tablet PO PRN ×3 (08:43→18:49)
[2017-10-07] MEDS ORDERED: hydrALAZINE 20mg/ml inj. IV ONE (08:45)
[2017-10-07] MEDS: magnesium Cl slow-release 64mg tablet PO PRN ×2 (08:45→21:08)
[2017-10-07 12:44] VITALS: BP 158/90
[2017-10-07 13:26] LABS: INR 1.1 INR; PROTHROMBIN TIME 11.8 SECONDS (9.0-12.0)
[2017-10-07 19:00] VITALS: BP 167/90
[2017-10-07 19:30] VITALS: BP 154/90
[2017-10-07] MEDS: morphine 4 MG/ML inj SYRINge IV PRN (20:22)
[2017-10-07] MEDS ORDERED: warfarin 3mg tablet PO ONE (21:00)
[2017-10-07] MEDS: temazepam 15mg capsule PO PRN (21:08)
[2017-10-08] VITALS (10 sets, daily range): BP systolic 131–183; BP diastolic 78–103
[2017-10-08] MEDS: oxyCODONE IR 5mg (immed. release) tablet PO PRN ×4 (00:31→20:13)
[2017-10-08] MEDS: morphine 4 MG/ML inj SYRINge IV PRN ×5 (01:24→22:54)
[2017-10-08] MEDS: hydrALAZINE 20mg/ml inj. IV PRN (01:49)
[2017-10-08 05:41] LABS: BASOPHILS % (AUTO) 0.3 % (0-1); EOSINOPHILS # (AUTO) 0.2 X10'3 (0-0.9); HEMATOCRIT 30.4 % (35.0-45.0); HEMOGLOBIN 9.8 g/dl (12.0-16.0); LYMPHOCYTES # (AUTO) 2.3 X10'3 (1.1-4.8); LYMPHOCYTES % (AUTO) 40.4 % (21-51); MEAN CORPUSCULAR HEMOGLOBIN 25.6 PG (27.0-31.0); MEAN CORPUSCULAR HGB CONC 32.3 % (33.0-36.5); MEAN CORPUSCULAR VOLUME 79.1 FL (78-98); MEAN PLATELET VOLUME 8.9 FL (7.4-10.4); MONOCYTES # (AUTO) 0.4 X10'3 (0-0.9); MONOCYTES % (AUTO) 7.5 % (2-12); NEUTROPHILS # (AUTO) 2.7 X10'3 (1.8-7.7); NEUTROPHILS % (AUTO) 48.8 % (42-75); PLATELET COUNT 255 X10'3 (140-440); RED BLOOD COUNT 3.84 X10'6 (4.20-5.60); WHITE BLOOD COUNT 5.6 X10'3 (4.5-11.0)
[2017-10-08 05:53] LABS: INR 1.1 INR
[2017-10-08 06:00] LABS: ALANINE AMINOTRANSFERASE 30 U/L (12-78); ALBUMIN 2.5 G/DL (3.4-5.0); ALBUMIN/GLOBULIN RATIO 0.7 (1.1-1.5); ALKALINE PHOSPHATASE 126 IU/L (46-116); ANION GAP 7 (8-16); ASPARTATE AMINO TRANSFERASE 21 U/L (10-37); BILIRUBIN,TOTAL 0.4 MG/DL (0.1-1.0); BLOOD UREA NITROGEN 9 MG/DL (7-18); CALCIUM 8.4 MG/DL (8.5-10.1); CHLORIDE 110 MMOL/L (99-107); GLUCOSE 83 MG/DL (70-104); MAGNESIUM 1.1 MG/DL (1.5-2.4); PHOSPHORUS 2.1 MG/DL (2.3-4.5); POTASSIUM 3.7 MMOL/L (3.5-5.1); SODIUM 140 MMOL/L (135-145); TOTAL CARBON DIOXIDE 23.1 MMOL/L (24-32); TOTAL PROTEIN 5.9 G/DL (6.4-8.2); eGFR 61 ML/MIN
[2017-10-08] MEDS: K and/or MAG REPLACEMENT MC SCH (08:00)
[2017-10-08] MEDS: magnesium Cl slow-release 64mg tablet PO PRN ×2 (08:11→23:01)
[2017-10-08] MEDS: normal saline 1000ml 1,000 ML IV SCH (09:37)
[2017-10-08] MEDS: carVEDilol 12.5mg tablet PO SCH (20:12)
[2017-10-08] MEDS: apixaban 5mg tablet PO SCH (20:14)
[2017-10-08] MEDS ORDERED: warfarin 3mg tablet PO ONE (21:00)
[2017-10-09] VITALS: BP 143/90
[2017-10-09] MEDS: temazepam 15mg capsule PO PRN (01:44)
[2017-10-09] MEDS: oxyCODONE IR 5mg (immed. release) tablet PO PRN ×2 (02:18→09:36)
[2017-10-09 04:52] LABS: BASOPHILS % (AUTO) 0.5 % (0-1); EOSINOPHILS # (AUTO) 0.2 X10'3 (0-0.9); EOSINOPHILS % (AUTO) 3.5 % (0-6); HEMATOCRIT 28.9 % (35.0-45.0); HEMOGLOBIN 9.3 g/dl (12.0-16.0); LYMPHOCYTES # (AUTO) 2.3 X10'3 (1.1-4.8); LYMPHOCYTES % (AUTO) 38.1 % (21-51); MEAN CORPUSCULAR HEMOGLOBIN 25.7 PG (27.0-31.0); MEAN CORPUSCULAR HGB CONC 32.3 % (33.0-36.5); MEAN CORPUSCULAR VOLUME 79.4 FL (78-98); MEAN PLATELET VOLUME 8.9 FL (7.4-10.4); MONOCYTES # (AUTO) 0.4 X10'3 (0-0.9); MONOCYTES % (AUTO) 6.9 % (2-12); NEUTROPHILS # (AUTO) 3.1 X10'3 (1.8-7.7); PLATELET COUNT 229 X10'3 (140-440); RED BLOOD COUNT 3.64 X10'6 (4.20-5.60); RED CELL DISTRIBUTION WIDTH 20.9 % (11.5-14.5)
[2017-10-09 05:04] LABS: INR 1.1 INR; PROTHROMBIN TIME 11.6 SECONDS (9.0-12.0)
[2017-10-09 05:23] LABS: ALANINE AMINOTRANSFERASE 25 U/L (12-78); ALBUMIN 2.4 G/DL (3.4-5.0); ALBUMIN/GLOBULIN RATIO 0.7 (1.1-1.5); ALKALINE PHOSPHATASE 111 IU/L (46-116); ANION GAP 7 (8-16); ASPARTATE AMINO TRANSFERASE 5 U/L (10-37); BILIRUBIN,TOTAL 0.3 MG/DL (0.1-1.0); BLOOD UREA NITROGEN 7 MG/DL (7-18); BUN/CREATININE RATIO 8.2 (6.6-38.0); CALCIUM 8.2 MG/DL (8.5-10.1); CHLORIDE 108 MMOL/L (99-107); CREATININE 0.85 MG/DL (0.40-0.90); GLUCOSE 93 MG/DL (70-104); MAGNESIUM 1.1 MG/DL (1.5-2.4); PHOSPHORUS 2.8 MG/DL (2.3-4.5); POTASSIUM 3.6 MMOL/L (3.5-5.1); SODIUM 139 MMOL/L (135-145); TOTAL CARBON DIOXIDE 24.4 MMOL/L (24-32); TOTAL PROTEIN 5.7 G/DL (6.4-8.2); eGFR 65 ML/MIN
[2017-10-09 07:05] VITALS: BP 162/97
[2017-10-09] MEDS: hydrALAZINE 20mg/ml inj. IV PRN (07:33)
[2017-10-09] MEDS: apixaban 5mg tablet PO SCH (07:33)
[2017-10-09] MEDS: carVEDilol 12.5mg tablet PO SCH (07:33)
[2017-10-09] MEDS: magnesium 1gm/100ml D5W IVPB 100 ML IV PRN ×2 (07:33→09:36)
[2017-10-09] MEDS: morphine 4 MG/ML inj SYRINge IV PRN ×2 (07:33→12:34)
[2017-10-09] MEDS: K and/or MAG REPLACEMENT MC SCH (08:00)
[2017-10-09 11:00] VITALS: BP 121/68
== END 2017-10-09 15:03 | DRG 813 ==
LOC: ER 10:38 → ED HOLD 18:13 → CMPBEDREQ 21:47 → SUR 3N 21:50
PROVIDERS: ADMIT Family Medicine; ATTEND Family Medicine
DX: D68.9 Coagulation defect, unspecified (principal); N17.9 Acute kidney failure, unspecified; E87.1 Hypo-osmolality and hyponatremia; I13.0 Hypertensive heart and chronic kidney disease with heart failure and stage 1 through stage 4 chronic kidney disease, or unspecified chronic kidney disease; E87.6 Hypokalemia; E83.42 Hypomagnesemia; N18.9 Chronic kidney disease, unspecified; D64.9 Anemia, unspecified; E03.9 Hypothyroidism, unspecified; I48.91 Unspecified atrial fibrillation; M21.951 Unspecified acquired deformity of right thigh; I50.9 Heart failure, unspecified; I71.4 Abdominal aortic aneurysm, without rupture; J44.9 Chronic obstructive pulmonary disease, unspecified; I73.9 Peripheral vascular disease, unspecified; Z60.2 Problems related to living alone; Z74.01 Bed confinement status; Z90.5 Acquired absence of kidney; Z90.710 Acquired absence of both cervix and uterus; Z88.2 Allergy status to sulfonamides; Z79.82 Long term (current) use of aspirin; Z79.899 Other long term (current) drug therapy; Z85.528 Personal history of other malignant neoplasm of kidney; Z86.718 Personal history of other venous thrombosis and embolism; Z85.43 Personal history of malignant neoplasm of ovary; Z86.73 Personal history of transient ischemic attack (TIA), and cerebral infarction without residual deficits; Z87.891 Personal history of nicotine dependence; Z82.49 Family history of ischemic heart disease and other diseases of the circulatory system
CPT/HCPCS: 36415; 71045; 71250; 74176; 80053; 81003; 83605; 83735; 83880; 84100; 84145; 84484; 85025; 85379; 85610; 87040; 87070; 93005; 96365; 96366; 96375; 97110; 97161; 97530; 99285; J0360; J2270; J2405; J2765; J3430; J3480; J7030

== ENCOUNTER 2017-11-04 13:28 | Inpatient (IN) | payer MEDICARE, MEDICAID ==
[~2017-11-04] VITALS: Ht 165.1 cm; Wt 70.5 kg
[~2017-11-04 13:28] MED LIST changes: -ASPI-611 PO; -ATOR10TA PO
[2017-11-04] MEDS ORDERED: ondansetron/PF 4mg/2ml inj IV ONE (13:50)
[2017-11-04] MEDS ORDERED: normal saline 1000ML IV soln IVB ONE (13:50)
[2017-11-04 13:58] LABS: BASOPHILS % (AUTO) 0.1 % (0-1); EOSINOPHILS % (AUTO) 0 % (0-6); HEMOGLOBIN 9.2 g/dl (12.0-16.0); LYMPHOCYTES # (AUTO) 1.3 X10'3 (1.1-4.8); LYMPHOCYTES % (AUTO) 6.3 % (21-51); MEAN CORPUSCULAR HEMOGLOBIN 25.6 PG (27.0-31.0); MEAN CORPUSCULAR HGB CONC 32.8 % (33.0-36.5); MEAN CORPUSCULAR VOLUME 78.1 FL (78-98); MEAN PLATELET VOLUME 8.9 FL (7.4-10.4); MONOCYTES # (AUTO) 0.7 X10'3 (0-0.9); MONOCYTES % (AUTO) 3.4 % (2-12); NEUTROPHILS # (AUTO) 19.1 X10'3 (1.8-7.7); NEUTROPHILS % (AUTO) 90.2 % (42-75); PLATELET COUNT 239 X10'3 (140-440); RED BLOOD COUNT 3.59 X10'6 (4.20-5.60); RED CELL DISTRIBUTION WIDTH 19.8 % (11.5-14.5); WHITE BLOOD COUNT 21.1 X10'3 (4.5-11.0)
[2017-11-04] MEDS: morphine 4 MG/ML inj SYRINge IV PRN ×3 (14:03→18:49)
[2017-11-04 14:08] LABS: INR 1.2 INR; PARTIAL THROMBOPLASTIN TIME 32 SECONDS (22-32); PROTHROMBIN TIME 12.2 SECONDS (9.0-12.0)
[2017-11-04 14:18] LABS: ALANINE AMINOTRANSFERASE 14 U/L (12-78); ALBUMIN 2.5 G/DL (3.4-5.0); ALBUMIN/GLOBULIN RATIO 0.7 (1.1-1.5); ALKALINE PHOSPHATASE 82 IU/L (46-116); ANION GAP 13 (8-16); ASPARTATE AMINO TRANSFERASE 14 U/L (10-37); BILIRUBIN,TOTAL 0.4 MG/DL (0.1-1.0); BLOOD UREA NITROGEN 34 MG/DL (7-18); BUN/CREATININE RATIO 16.3 (6.6-38.0); CALCIUM 8.2 MG/DL (8.5-10.1); CHLORIDE 104 MMOL/L (99-107); CREATININE 2.09 MG/DL (0.40-0.90); GLUCOSE 106 MG/DL (70-104); POTASSIUM 3.7 MMOL/L (3.5-5.1); SODIUM 136 MMOL/L (135-145); TOTAL CARBON DIOXIDE 18.7 MMOL/L (24-32); TOTAL PROTEIN 6.1 G/DL (6.4-8.2); eGFR 23 ML/MIN
[2017-11-04 14:28] LABS: LIPASE < 50 U/L (73-393)
[2017-11-04 15:11] LABS: CLARITY,URINE CLEAR (Clear); COLOR,URINE YELLOW (Yellow); GLUCOSE, URINE NEGATIVE (Neg); KETONES,URINE TRACE mg/dl (Neg); LEUKOCYTE ESTERASE ,URINE NEGATIVE (Neg); NITRITES, URINE NEGATIVE (Neg); OCCULT BLOOD,URINE NEGATIVE (Neg); PH,URINE 5.5 (4.8-8.0); PROTEIN,URINE NEGATIVE (Neg); UROBILINOGEN,URINE 0.2 E.U/dL (0.2-1.0)
[2017-11-04] MEDS ORDERED: normal saline 1000ML IV soln IV ONE (15:15)
[2017-11-04 15:20] LABS: UA COLLECTION TYPE STRAIGHT CATH
[2017-11-04] MEDS ORDERED: metroNIDAZOLE-Flagyl 500mg/NS 100 ML IV STA (16:04)
[2017-11-04] MEDS ORDERED: levoFLOXACIN-Levaquin 500mg/D5 100 ML IV ONE (16:05)
[2017-11-04] MEDS ORDERED: potassium Cl 20 mEq SR tablet PO PRN ×2 (17:00)
[2017-11-04] MEDS ORDERED: acetaminophen 325mg tablet PO PRN ×2 (17:00)
[2017-11-04] MEDS ORDERED: magnesium hydroxide 30ml (MOM) UD suspension PO PRN (17:00)
[2017-11-04] MEDS ORDERED: mag hydrox/Alum hydrox/simeth 30ml oral suspension PO PRN (17:00)
[2017-11-04] MEDS ORDERED: magnesium 4gm in 100ml NS 100 ML IV PRN (17:00)
[2017-11-04] MEDS ORDERED: ondansetron/PF 4mg/2ml inj IV PRN (17:00)
[2017-11-04] MEDS ORDERED: magnesium 1gm/100ml D5W IVPB 100 ML IV PRN (17:00)
[2017-11-04] MEDS ORDERED: potassium Cl 40MEQ/NS 500ml 500 ML IV PRN ×2 (17:00)
[2017-11-04 17:20] LABS: HYPOCHROMASIA 1+; PLATELET ESTIMATE NORMAL
[2017-11-04 17:21] LABS: ANISOCYTOSIS 2+; ELLIPTOCYTES 1+; SCHISTOCYTES FEW
[2017-11-04] MEDS: normal saline 1000ml 1,000 ML IV SCH (17:42)
[2017-11-04] MEDS ORDERED: AMLO5TAB16 PO (18:11)
[2017-11-04 19:00] VITALS: BP 118/62
[2017-11-04] MEDS ORDERED: heparin, porcine 5000 units/ml vial SQ SCH (20:00)
[2017-11-04] MEDS: piperacillin-tazo 2.25gm/50ml 50 ML IV SCH (20:28)
[2017-11-04] MEDS: polyethylene glycol 3350 17gm powd pack PO SCH (20:28)
[2017-11-04] MEDS ORDERED: oxyCODONE IR 5mg (immed. release) tablet PO ONE (20:40)
[2017-11-04] MEDS ORDERED: warfarin 1mg tablet PO ONE ×2 (21:00)
[2017-11-04] MEDS: temazepam 15mg capsule PO PRN (22:59)
[2017-11-04 23:57] VITALS: BP 105/57
[2017-11-05] MEDS ORDERED: metroNIDAZOLE-Flagyl 500mg/NS 100 ML IV SCH
[2017-11-05] MEDS: piperacillin-tazo 2.25gm/50ml 50 ML IV SCH ×3 (01:18→13:37)
[2017-11-05] MEDS: normal saline 1000ml 1,000 ML IV SCH ×2 (05:13→12:57)
[2017-11-05 05:42] LABS: HEMATOCRIT 25.1 % (35.0-45.0); HEMOGLOBIN 8.1 g/dl (12.0-16.0); MEAN CORPUSCULAR HEMOGLOBIN 25.3 PG (27.0-31.0); MEAN CORPUSCULAR HGB CONC 32.1 % (33.0-36.5); MEAN CORPUSCULAR VOLUME 78.9 FL (78-98); MEAN PLATELET VOLUME 9.2 FL (7.4-10.4); PLATELET COUNT 194 X10'3 (140-440); RED BLOOD COUNT 3.18 X10'6 (4.20-5.60); RED CELL DISTRIBUTION WIDTH 19.7 % (11.5-14.5); WHITE BLOOD COUNT 17.3 X10'3 (4.5-11.0)
[2017-11-05 05:50] LABS: ANION GAP 13 (8-16); BLOOD UREA NITROGEN 32 MG/DL (7-18); BUN/CREATININE RATIO 18.5 (6.6-38.0); CALCIUM 7.6 MG/DL (8.5-10.1); CHLORIDE 106 MMOL/L (99-107); CREATININE 1.73 MG/DL (0.40-0.90); GLUCOSE 90 MG/DL (70-104); MAGNESIUM 1.4 MG/DL (1.5-2.4); POTASSIUM 3.9 MMOL/L (3.5-5.1); SODIUM 139 MMOL/L (135-145); TOTAL CARBON DIOXIDE 20.3 MMOL/L (24-32); eGFR 29 ML/MIN
[2017-11-05 05:54] LABS: INR 1.1 INR; PROTHROMBIN TIME 11.8 SECONDS (9.0-12.0)
[2017-11-05] MEDS ORDERED: oxyCODONE IR 5mg (immed. release) tablet PO ONE (07:30)
[2017-11-05 07:37] VITALS: BP 91/47
[2017-11-05 07:38] VITALS: BP 93/51
[2017-11-05] MEDS: levoFLOXACIN-Levaquin 250mg/D5 50 ML IV SCH (07:43)
[2017-11-05] MEDS: magnesium Cl slow-release 64mg tablet PO PRN ×2 (07:43→20:43)
[2017-11-05] MEDS: K and/or MAG REPLACEMENT MC SCH (08:00)
[2017-11-05] MEDS ORDERED: bisacodyl 10mg suppository rectal RC STA (11:10)
[2017-11-05 11:45] VITALS: BP 77/44
[2017-11-05 12:00] VITALS: BP 100/58
[2017-11-05] MEDS ORDERED: oxyCODONE IR 5mg (immed. release) tablet PO PRN (13:00)
[2017-11-05] MEDS: oxyCODONE IR 5mg (immed. release) tablet PO SCH ×3 (13:09→20:41)
[2017-11-05] MEDS ORDERED: lactulose 20gm/30ml cup PO PRN (17:05)
[2017-11-05 18:00] VITALS: BP 100/50
[2017-11-05] MEDS: enoxaparin 40mg/0.4ml syringe SUBCUT SCH (18:04)
[2017-11-05] MEDS: metroNIDAZOLE-Flagyl 500mg/NS 100 ML IV SCH ×2 (18:04→23:22)
[2017-11-05] MEDS: Potassium Cl inj 10 MEQ in normal saline 1000ml 1,000 ML IV SCH (20:40)
[2017-11-05] MEDS: docusate sod 100mg capsule PO SCH (20:41)
[2017-11-05] MEDS: polyethylene glycol 3350 17gm powd pack PO SCH (20:43)
[2017-11-05] MEDS: temazepam 15mg capsule PO PRN ×2 (20:46→23:22)
[2017-11-05] MEDS ORDERED: warfarin 5mg tablet PO ONE (21:00)
[2017-11-06] VITALS: BP 105/61
[2017-11-06 05:42] LABS: HEMATOCRIT 22.1 % (35.0-45.0); HEMOGLOBIN 7.2 g/dl (12.0-16.0); MEAN CORPUSCULAR HEMOGLOBIN 25.3 PG (27.0-31.0); MEAN CORPUSCULAR HGB CONC 32.6 % (33.0-36.5); MEAN CORPUSCULAR VOLUME 77.6 FL (78-98); MEAN PLATELET VOLUME 9.8 FL (7.4-10.4); PLATELET COUNT 171 X10'3 (140-440); RED BLOOD COUNT 2.85 X10'6 (4.20-5.60); RED CELL DISTRIBUTION WIDTH 19.6 % (11.5-14.5); WHITE BLOOD COUNT 10.6 X10'3 (4.5-11.0)
[2017-11-06 05:49] LABS: ANION GAP 13 (8-16); BLOOD UREA NITROGEN 28 MG/DL (7-18); BUN/CREATININE RATIO 20.3 (6.6-38.0); CHLORIDE 111 MMOL/L (99-107); CREATININE 1.38 MG/DL (0.40-0.90); GLUCOSE 91 MG/DL (70-104); INR 1.1 INR; PROTHROMBIN TIME 11.7 SECONDS (9.0-12.0); SODIUM 141 MMOL/L (135-145); TOTAL CARBON DIOXIDE 16.7 MMOL/L (24-32)
[2017-11-06 05:50] LABS: ALBUMIN 1.7 G/DL (3.4-5.0); MAGNESIUM 1.4 MG/DL (1.5-2.4); eGFR 37 ML/MIN
[2017-11-06 06:53] VITALS: BP 105/61
[2017-11-06 06:56] LABS: ANISOCYTOSIS 2+; PLATELET ESTIMATE NORMAL
[2017-11-06 06:57] LABS: BURR CELLS FEW; POIKILOCYTOSIS 1+
[2017-11-06 06:58] LABS: ELLIPTOCYTES FEW
[2017-11-06] MEDS: metroNIDAZOLE-Flagyl 500mg/NS 100 ML IV SCH ×3 (07:39→23:40)
[2017-11-06] MEDS: enoxaparin 40mg/0.4ml syringe SUBCUT SCH (07:40)
[2017-11-06] MEDS: magnesium Cl slow-release 64mg tablet PO PRN ×2 (07:41→20:15)
[2017-11-06] MEDS: docusate sod 100mg capsule PO SCH ×2 (07:41→20:15)
[2017-11-06] MEDS: oxyCODONE IR 5mg (immed. release) tablet PO SCH ×3 (07:43→20:17)
[2017-11-06] MEDS: Potassium Cl inj 10 MEQ in normal saline 1000ml 1,000 ML IV SCH ×2 (07:53→09:03)
[2017-11-06 08:00] VITALS: BP 105/61
[2017-11-06] MEDS: K and/or MAG REPLACEMENT MC SCH (08:00)
[2017-11-06] MEDS: levoFLOXACIN-Levaquin 250mg/D5 50 ML IV SCH (09:04)
[2017-11-06 11:19] VITALS: BP 110/68
[2017-11-06 12:34] VITALS: BP 103/63
[2017-11-06] MEDS ORDERED: tizanidine 4mg tablet PO PRN (16:35)
[2017-11-06] MEDS ORDERED: Potassium Cl inj 10 MEQ in normal saline 1000ml 1,000 ML IV SCH (16:57)
[2017-11-06] MEDS ORDERED: guaiFENesin/DM 10ml UD oral syrup PO PRN (17:40)
[2017-11-06 18:00] VITALS: BP 147/83
[2017-11-06] MEDS ORDERED: ipratropium/albuterol 3ml nebule NEB ONE (18:20)
[2017-11-06] MEDS: temazepam 15mg capsule PO PRN ×2 (20:26→21:56)
[2017-11-06] MEDS: polyethylene glycol 3350 17gm powd pack PO SCH (20:27)
[2017-11-06] MEDS: ipratropium/albuterol 3ml nebule NEB SCH (20:28)
[2017-11-06] MEDS ORDERED: warfarin 3mg tablet PO ONE (21:00)
[2017-11-06] MEDS ORDERED: warfarin 3mg tablet PO SCH (21:00)
[2017-11-07] VITALS: BP 139/86
[2017-11-07] MEDS ORDERED: ipratropium/albuterol 3ml nebule NEB PRN (01:35)
[2017-11-07] MEDS ORDERED: metoprolol tartrate 25mg tablet PO ONE (03:25)
[2017-11-07 06:33] LABS: INR 1.4 INR; PROTHROMBIN TIME 14.7 SECONDS (9.0-12.0)
[2017-11-07 06:35] LABS: ANION GAP 14 (8-16); BLOOD UREA NITROGEN 17 MG/DL (7-18); BUN/CREATININE RATIO 16.7 (6.6-38.0); CALCIUM 8.5 MG/DL (8.5-10.1); CHLORIDE 111 MMOL/L (99-107); CREATININE 1.02 MG/DL (0.40-0.90); GLUCOSE 87 MG/DL (70-104); MAGNESIUM 1.6 MG/DL (1.5-2.4); POTASSIUM 4.1 MMOL/L (3.5-5.1); SODIUM 143 MMOL/L (135-145); TOTAL CARBON DIOXIDE 18.3 MMOL/L (24-32); eGFR 53 ML/MIN
[2017-11-07 06:42] LABS: HEMATOCRIT 25.1 % (35.0-45.0); MEAN CORPUSCULAR HGB CONC 31.8 % (33.0-36.5); MEAN CORPUSCULAR VOLUME 78.5 FL (78-98); PLATELET COUNT 209 X10'3 (140-440); RED CELL DISTRIBUTION WIDTH 20.5 % (11.5-14.5); WHITE BLOOD COUNT 7.3 X10'3 (4.5-11.0)
[2017-11-07] MEDS: ipratropium/albuterol 3ml nebule NEB SCH (07:00)
[2017-11-07 07:30] VITALS: BP 143/95
[2017-11-07] MEDS ORDERED: pantoprazole 40mg Tablet.DR PO SCH (07:30)
[2017-11-07] MEDS ORDERED: citalopram 20mg tablet PO SCH (08:00)
[2017-11-07] MEDS: K and/or MAG REPLACEMENT MC SCH (08:00)
[2017-11-07] MEDS ORDERED: levoTHYROXINE 88mcg tablet PO SCH (08:00)
[2017-11-07] MEDS ORDERED: warfarin 3mg tablet PO SCH (08:00)
[2017-11-07] MEDS: docusate sod 100mg capsule PO SCH (08:12)
[2017-11-07] MEDS: oxyCODONE IR 5mg (immed. release) tablet PO SCH (08:13)
[2017-11-07] MEDS: metroNIDAZOLE-Flagyl 500mg/NS 100 ML IV SCH (08:13)
[2017-11-07] MEDS: enoxaparin 40mg/0.4ml syringe SUBCUT SCH (08:14)
[2017-11-07] MEDS: levoFLOXACIN-Levaquin 250mg/D5 50 ML IV SCH (09:34)
[2017-11-07] MEDS ORDERED: diltiazem 5mg/ml 5ml inj. IV STA ×2 (09:45→10:08)
[2017-11-07] MEDS ORDERED: diltiazem CD 120mg capsule (once-daily) PO SCH (09:45)
[2017-11-07 10:25] VITALS: BP 172/98
[2017-11-07 10:54] VITALS: BP 137/92
[2017-11-07] MEDS ORDERED: diltiazem CD 120mg capsule (once-daily) PO ONE (11:40)
[2017-11-07] MEDS ORDERED: oxyCODONE IR 5mg (immed. release) tablet PO SCH (13:00)
[2017-11-08] MEDS ORDERED: diltiazem CD 120mg capsule (once-daily) PO SCH (08:00)
== END 2017-11-07 14:13 | DRG 872 ==
LOC: ER 13:28 → ED HOLD 16:57 → SUR 3N 18:56
PROVIDERS: ADMIT Family Medicine; ATTEND Internal Medicine
DX: A41.9 Sepsis, unspecified organism (principal); N17.9 Acute kidney failure, unspecified; K57.32 Diverticulitis of large intestine without perforation or abscess without bleeding; I13.0 Hypertensive heart and chronic kidney disease with heart failure and stage 1 through stage 4 chronic kidney disease, or unspecified chronic kidney disease; J44.9 Chronic obstructive pulmonary disease, unspecified; I73.9 Peripheral vascular disease, unspecified; D64.9 Anemia, unspecified; E03.9 Hypothyroidism, unspecified; E86.0 Dehydration; G89.4 Chronic pain syndrome; I48.91 Unspecified atrial fibrillation; I50.9 Heart failure, unspecified; I71.4 Abdominal aortic aneurysm, without rupture; Z60.2 Problems related to living alone; M25.551 Pain in right hip; K59.09 Other constipation; N18.9 Chronic kidney disease, unspecified; Z90.5 Acquired absence of kidney; Z99.3 Dependence on wheelchair; Z88.2 Allergy status to sulfonamides; Z90.49 Acquired absence of other specified parts of digestive tract; Z79.899 Other long term (current) drug therapy; Z79.01 Long term (current) use of anticoagulants; Z79.891 Long term (current) use of opiate analgesic; Z85.43 Personal history of malignant neoplasm of ovary; Z85.528 Personal history of other malignant neoplasm of kidney; Z86.718 Personal history of other venous thrombosis and embolism; Z86.73 Personal history of transient ischemic attack (TIA), and cerebral infarction without residual deficits; Z87.891 Personal history of nicotine dependence; Z82.49 Family history of ischemic heart disease and other diseases of the circulatory system
CPT/HCPCS: 36415; 71045; 74176; 80048; 80053; 81003; 83605; 83690; 83735; 84145; 84484; 85025; 85027; 85610; 85730; 87040; 87070; 93005; 94640; 94760; 96365; 96368; 96375; 97161; 97530; 99285; J1650; J1956; J2270; J2405; J2543; J3480; J3490; J7030

== ENCOUNTER 2017-12-10 13:19 | Emergency (ER) | payer MEDICARE, MEDICAID ==
[~2017-12-10] VITALS: Ht 165.1 cm; Wt 65.9 kg
[~2017-12-10 13:19] MED LIST changes: -NITR0.4T51 SL; -PROC10TA10 PO
[2017-12-10] MEDS ORDERED: HYDROcodone/acetaminophen 10/325mg tab PO ONE (14:15)
[2017-12-10 14:46] LABS: BASOPHILS % (AUTO) 0.8 % (0-1); EOSINOPHILS % (AUTO) 0.8 % (0-6); HEMATOCRIT 31.9 % (35.0-45.0); HEMOGLOBIN 10.1 g/dl (12.0-16.0); LYMPHOCYTES % (AUTO) 21.5 % (21-51); MEAN CORPUSCULAR HEMOGLOBIN 24.2 PG (27.0-31.0); MEAN CORPUSCULAR HGB CONC 31.7 % (33.0-36.5); MEAN CORPUSCULAR VOLUME 76.4 FL (78-98); MEAN PLATELET VOLUME 8.1 FL (7.4-10.4); MONOCYTES # (AUTO) 0.4 X10'3 (0-0.9); MONOCYTES % (AUTO) 8.9 % (2-12); NEUTROPHILS # (AUTO) 3.2 X10'3 (1.8-7.7); PLATELET COUNT 268 X10'3 (140-440); RED BLOOD COUNT 4.17 X10'6 (4.20-5.60); WHITE BLOOD COUNT 4.7 X10'3 (4.5-11.0)
[2017-12-10 14:49] LABS: ALBUMIN 2.8 G/DL (3.4-5.0); ANION GAP 11 (8-16); BILIRUBIN,TOTAL 0.3 MG/DL (0.1-1.0); BLOOD UREA NITROGEN 17 MG/DL (7-18); CALCIUM 8.4 MG/DL (8.5-10.1); CHLORIDE 105 MMOL/L (99-107); CREATININE 1.06 MG/DL (0.40-0.90); GLUCOSE 140 MG/DL (70-104); POTASSIUM 3.8 MMOL/L (3.5-5.1); SODIUM 142 MMOL/L (135-145); TOTAL CARBON DIOXIDE 25.9 MMOL/L (24-32); TOTAL PROTEIN 7.2 G/DL (6.4-8.2); eGFR 50 ML/MIN
[2017-12-10 14:50] LABS: ALANINE AMINOTRANSFERASE 14 U/L (12-78); ALBUMIN/GLOBULIN RATIO 0.6 (1.1-1.5); ALKALINE PHOSPHATASE 100 IU/L (46-116); ASPARTATE AMINO TRANSFERASE 16 U/L (10-37)
[2017-12-10 14:54] LABS: PROTHROMBIN TIME 38.2 SECONDS (9.0-12.0)
[2017-12-10 14:56] LABS: INR 4.1 INR
[2017-12-10] MEDS ORDERED: oxyCODONE/APAP 10/325mg tablet PO ONE (15:15)
[2017-12-10 15:18] LABS: ANISOCYTOSIS 2+; LARGE PLATELETS FEW; PLATELET ESTIMATE NORMAL
[2017-12-10 15:19] LABS: HYPOCHROMASIA 1+; ROULEAUX 1+
[2017-12-10 16:08] VITALS: BP 114/70
== END 2017-12-10 16:16 | disposition home or self-care (01) ==
LOC: ER 13:20
DX: S22.32XA Fracture of one rib, left side, initial encounter for closed fracture (principal); I48.91 Unspecified atrial fibrillation; I11.0 Hypertensive heart disease with heart failure; I50.9 Heart failure, unspecified; Z86.73 Personal history of transient ischemic attack (TIA), and cerebral infarction without residual deficits; Z98.890 Other specified postprocedural states; Z88.2 Allergy status to sulfonamides; Z79.899 Other long term (current) drug therapy; Z79.01 Long term (current) use of anticoagulants; W19.XXXA Unspecified fall, initial encounter; Y93.89 Activity, other specified; Y92.099 Unspecified place in other non-institutional residence as the place of occurrence of the external cause; Y99.9 Unspecified external cause status
CPT/HCPCS: 36415; 71045; 80053; 85025; 85610; 99285

== ENCOUNTER 2017-12-11 19:58 | Inpatient (IN) | payer MEDICARE, OTHER ==
[~2017-12-11] VITALS: Ht 165.1 cm; Wt 62.0 kg
[2017-12-11] MEDS ORDERED: diltiazem-NS 100mg/100ml 100 ML IV SCH (20:25)
[2017-12-11] MEDS ORDERED: metoprolol tartrate 50mg tablet PO ONE (20:35)
[2017-12-11] MEDS ORDERED: aspirin 81mg tab.chew PO ONE (21:25)
[2017-12-11 22:09] LABS: BASOPHILS # (AUTO) 0.1 X10'3 (0-0.2); BASOPHILS % (AUTO) 0.7 % (0-1); EOSINOPHILS # (AUTO) 0.1 X10'3 (0-0.9); EOSINOPHILS % (AUTO) 1.5 % (0-6); HEMOGLOBIN 12.5 g/dl (12.0-16.0); LYMPHOCYTES # (AUTO) 1.5 X10'3 (1.1-4.8); LYMPHOCYTES % (AUTO) 17.4 % (21-51); MEAN CORPUSCULAR HEMOGLOBIN 24.5 PG (27.0-31.0); MEAN CORPUSCULAR HGB CONC 32.1 % (33.0-36.5); MEAN CORPUSCULAR VOLUME 76.2 FL (78-98); MONOCYTES # (AUTO) 0.6 X10'3 (0-0.9); MONOCYTES % (AUTO) 6.6 % (2-12); NEUTROPHILS # (AUTO) 6.4 X10'3 (1.8-7.7); NEUTROPHILS % (AUTO) 73.8 % (42-75); PLATELET COUNT 360 X10'3 (140-440); RED BLOOD COUNT 5.12 X10'6 (4.20-5.60); RED CELL DISTRIBUTION WIDTH 20.1 % (11.5-14.5); WHITE BLOOD COUNT 8.7 X10'3 (4.5-11.0)
[2017-12-11 22:25] LABS: ALANINE AMINOTRANSFERASE 16 U/L (12-78); ALBUMIN 3.4 G/DL (3.4-5.0); ALBUMIN/GLOBULIN RATIO 0.7 (1.1-1.5); ALKALINE PHOSPHATASE 112 IU/L (46-116); ANION GAP 13 (8-16); ASPARTATE AMINO TRANSFERASE 16 U/L (10-37); BILIRUBIN,TOTAL 0.5 MG/DL (0.1-1.0); BLOOD UREA NITROGEN 17 MG/DL (7-18); BUN/CREATININE RATIO 19.3 (6.6-38.0); CALCIUM 9.1 MG/DL (8.5-10.1); CHLORIDE 102 MMOL/L (99-107); CREATININE 0.88 MG/DL (0.40-0.90); GLUCOSE 103 MG/DL (70-104); POTASSIUM 3.6 MMOL/L (3.5-5.1); SODIUM 139 MMOL/L (135-145); TOTAL CARBON DIOXIDE 23.8 MMOL/L (24-32); TOTAL PROTEIN 8.4 G/DL (6.4-8.2); eGFR 62 ML/MIN
[2017-12-11 22:26] LABS: INR 3.4 INR; PROTHROMBIN TIME 32.1 SECONDS (9.0-12.0)
[2017-12-11 22:27] LABS: PARTIAL THROMBOPLASTIN TIME 45 SECONDS (22-32)
[2017-12-11 22:30] LABS: LIPASE 137 U/L (73-393); MAGNESIUM 1.5 MG/DL (1.5-2.4)
[2017-12-11] MEDS ORDERED: oxyCODONE SR 10mg (sust. release) tab PO ONE (23:35)
[2017-12-12] VITALS (7 sets, daily range): BP systolic 98–151; BP diastolic 61–104
[2017-12-12] MEDS ORDERED: GABA-532 PO (00:19)
[2017-12-12] MEDS ORDERED: TEMA15CA5 PO (00:19)
[2017-12-12] MEDS ORDERED: DOCU-28 PO (00:19)
[2017-12-12] MEDS ORDERED: BISA10SU60 (00:19)
[2017-12-12] MEDS ORDERED: IPRA3AMP9 IH (00:19)
[2017-12-12] MEDS ORDERED: TIZA4CAP PO (00:19)
[2017-12-12] MEDS ORDERED: POLY17PO10 PO (00:19)
[2017-12-12] MEDS ORDERED: DILT240C PO (00:19)
[2017-12-12] MEDS ORDERED: PANT-47 PO (00:19)
[2017-12-12] MEDS ORDERED: HYDR-4383 PO (00:19)
[2017-12-12] MEDS ORDERED: LACTC PO (00:19)
[2017-12-12] MEDS ORDERED: MAGN800O PO (00:19)
[2017-12-12] MEDS ORDERED: WARF5TAB PO (00:19)
[2017-12-12] MEDS ORDERED: CITA20TA19 PO (00:19)
[2017-12-12] MEDS ORDERED: MULT-38 PO (00:19)
[2017-12-12] MEDS ORDERED: NA P133E4 RC (00:35)
[2017-12-12] MEDS ORDERED: bisacodyl 10mg suppository rectal RC PRN (01:10)
[2017-12-12] MEDS ORDERED: magnesium hydroxide 30ml (MOM) UD suspension PO PRN (01:10)
[2017-12-12] MEDS ORDERED: acetaminophen 325mg tablet PO PRN (01:10)
[2017-12-12] MEDS ORDERED: ondansetron/PF 4mg/2ml inj IV PRN (01:10)
[2017-12-12] MEDS ORDERED: mag hydrox/Alum hydrox/simeth 30ml oral suspension PO PRN (01:10)
[2017-12-12] MEDS ORDERED: HYDROcodone/acetaminophen 5mg/325mg tablet PO PRN ×2 (01:15)
[2017-12-12] MEDS: normal saline 1000ml 1,000 ML IV SCH (02:08)
[2017-12-12] MEDS: morphine 2 MG/ML inj. syringe IV PRN ×3 (02:14→18:40)
[2017-12-12 06:15] LABS: PROTHROMBIN TIME 28.4 SECONDS (9.0-12.0)
[2017-12-12] MEDS: diltiazem CD 120mg capsule (once-daily) PO SCH (07:34)
[2017-12-12] MEDS: oxyCODONE IR 5mg (immed. release) tablet PO SCH ×3 (07:34→20:20)
[2017-12-12] MEDS: docusate sod 100mg capsule PO SCH (07:34)
[2017-12-12] MEDS: pantoprazole 40mg Tablet.DR PO SCH (07:35)
[2017-12-12] MEDS: citalopram 20mg tablet PO SCH (07:35)
[2017-12-12] MEDS: cyclobenzaprine 10mg tablet PO SCH (07:35)
[2017-12-12] MEDS: gabapentin 300mg capsule PO SCH ×3 (07:36→21:28)
[2017-12-12 07:48] LABS: CLARITY,URINE CLOUDY (Clear); COLOR,URINE YELLOW (Yellow); GLUCOSE, URINE NEGATIVE (Neg); KETONES,URINE NEGATIVE (Neg); LEUKOCYTE ESTERASE ,URINE TRACE (Neg); NITRITES, URINE NEGATIVE (Neg); OCCULT BLOOD,URINE TRACE-INTACT (Neg); PROTEIN,URINE TRACE mg/dl (Neg)
[2017-12-12 08:00] LABS: BACTERIA,URINE 4+ /HPF (Neg); MUCUS STRANDS NONE SEEN /LPF (Neg); RBC,URINE 0-2 /HPF (0-2); SQUAMOUS EPITHELIAL CELL,UR MANY /LPF (FEW); UA COLLECTION TYPE OTHER
[2017-12-12] MEDS: levoTHYROXINE 88mcg tablet PO SCH (08:12)
[2017-12-12 09:34] LABS: CLARITY,URINE SLIGHTLY CLOUDY (Clear); COLOR,URINE YELLOW (Yellow); GLUCOSE, URINE NEGATIVE (Neg); KETONES,URINE NEGATIVE (Neg); LEUKOCYTE ESTERASE ,URINE TRACE (Neg); NITRITES, URINE NEGATIVE (Neg); OCCULT BLOOD,URINE TRACE-INTACT (Neg); PROTEIN,URINE TRACE mg/dl (Neg)
[2017-12-12 09:35] LABS: UA COLLECTION TYPE OTHER
[2017-12-12 09:40] LABS: BACTERIA,URINE 3+ /HPF (Neg); RBC,URINE 0-2 /HPF (0-2); SQUAMOUS EPITHELIAL CELL,UR FEW /LPF (FEW); WBC,URINE 30-50 /HPF (0-4)
[2017-12-12] MEDS ORDERED: warfarin 5mg tablet PO SCH (17:00)
[2017-12-12] MEDS ORDERED: warfarin 1mg tablet PO ONE (21:00)
[2017-12-12] MEDS ORDERED: lisinopril 20mg tablet PO SCH (21:00)
[2017-12-13] VITALS (15 sets, daily range): BP systolic 76–126; BP diastolic 41–77
[2017-12-13] MEDS: oxyCODONE IR 5mg (immed. release) tablet PO SCH ×2 (01:37→02:37)
[2017-12-13] MEDS ORDERED: normal saline 1000ml 1,000 ML IV ONE ×2 (06:35→10:30)
[2017-12-13] MEDS: diltiazem CD 120mg capsule (once-daily) PO SCH (08:00)
[2017-12-13] MEDS: gabapentin 300mg capsule PO SCH (08:00)
[2017-12-13] MEDS: cyclobenzaprine 10mg tablet PO SCH (08:00)
[2017-12-13] MEDS: citalopram 20mg tablet PO SCH (09:36)
[2017-12-13] MEDS: levoTHYROXINE 88mcg tablet PO SCH (09:36)
[2017-12-13] MEDS: pantoprazole 40mg Tablet.DR PO SCH (09:36)
[2017-12-13] MEDS: docusate sod 100mg capsule PO SCH (09:36)
[2017-12-13 10:21] LABS: BASOPHILS % (AUTO) 0.3 % (0-1); EOSINOPHILS # (AUTO) 0.1 X10'3 (0-0.9); EOSINOPHILS % (AUTO) 1.6 % (0-6); HEMATOCRIT 27.7 % (35.0-45.0); HEMOGLOBIN 8.7 g/dl (12.0-16.0); LYMPHOCYTES # (AUTO) 1.9 X10'3 (1.1-4.8); LYMPHOCYTES % (AUTO) 28.8 % (21-51); MEAN CORPUSCULAR HEMOGLOBIN 24.3 PG (27.0-31.0); MEAN CORPUSCULAR HGB CONC 31.4 % (33.0-36.5); MEAN CORPUSCULAR VOLUME 77.2 FL (78-98); MONOCYTES # (AUTO) 0.7 X10'3 (0-0.9); MONOCYTES % (AUTO) 9.9 % (2-12); NEUTROPHILS % (AUTO) 59.4 % (42-75); PLATELET COUNT 222 X10'3 (140-440); RED BLOOD COUNT 3.59 X10'6 (4.20-5.60); RED CELL DISTRIBUTION WIDTH 20.2 % (11.5-14.5); WHITE BLOOD COUNT 6.7 X10'3 (4.5-11.0)
[2017-12-13 10:34] LABS: ALANINE AMINOTRANSFERASE 10 U/L (12-78); ALBUMIN 2.3 G/DL (3.4-5.0); ALBUMIN/GLOBULIN RATIO 0.7 (1.1-1.5); ALKALINE PHOSPHATASE 72 IU/L (46-116); ANION GAP 10 (8-16); ASPARTATE AMINO TRANSFERASE 9 U/L (10-37); BILIRUBIN,TOTAL 0.2 MG/DL (0.1-1.0); BLOOD UREA NITROGEN 40 MG/DL (7-18); CALCIUM 7.5 MG/DL (8.5-10.1); CHLORIDE 105 MMOL/L (99-107); CREATININE 2.22 MG/DL (0.40-0.90); GLUCOSE 91 MG/DL (70-104); MAGNESIUM 1.6 MG/DL (1.5-2.4); PHOSPHORUS 4.9 MG/DL (2.3-4.5); POTASSIUM 3.3 MMOL/L (3.5-5.1); SODIUM 138 MMOL/L (135-145); TOTAL PROTEIN 5.6 G/DL (6.4-8.2); TROPONIN I 0.04 NG/ML (0.0-0.05); eGFR 21 ML/MIN
[2017-12-13 11:09] LABS: PLATELET ESTIMATE NORMAL
[2017-12-13 11:10] LABS: ANISOCYTOSIS 2+; HYPOCHROMASIA 1+; MICROCYTOSIS 1+; POLYCHROMASIA 1+
[2017-12-13] MEDS ORDERED: potassium Cl 20 mEq SR tablet PO STA (11:35)
[2017-12-13 12:56] LABS: CLARITY,URINE SLIGHTLY CLOUDY (Clear); COLOR,URINE YELLOW (Yellow); GLUCOSE, URINE NEGATIVE (Neg); KETONES,URINE NEGATIVE (Neg); LEUKOCYTE ESTERASE ,URINE MODERATE (Neg); NITRITES, URINE NEGATIVE (Neg); OCCULT BLOOD,URINE TRACE-INTACT (Neg); PH,URINE 5.5 (4.8-8.0); PROTEIN,URINE NEGATIVE (Neg); UA COLLECTION TYPE NON-SPECIFIED; UROBILINOGEN,URINE 0.2 E.U/dL (0.2-1.0)
[2017-12-13] MEDS: diltiazem 30mg tablet PO SCH ×2 (13:00→21:31)
[2017-12-13 13:03] LABS: TOTAL PROTEIN,URINE RANDOM 27.3 MG/DL
[2017-12-13 13:11] LABS: MUCUS STRANDS FEW /LPF (Neg); SQUAMOUS EPITHELIAL CELL,UR MODERATE /LPF (FEW)
[2017-12-13 13:13] LABS: WBC,URINE 30-50 /HPF (0-4)
[2017-12-13 13:14] LABS: BACTERIA,URINE 3+ /HPF (Neg); TRANSITIONAL EPI CELLS,URINE FEW /HPF
[2017-12-13 13:15] LABS: WBC CLUMPS,URINE FEW /HPF (NEGATIVE)
[2017-12-13] MEDS ORDERED: cyclobenzaprine 10mg tablet PO PRN (20:00)
[2017-12-13] MEDS: gabapentin 100mg capsule PO SCH (21:32)
[2017-12-14] MEDS: morphine 2 MG/ML inj. syringe IV PRN ×5 (00:30→23:06)
[2017-12-14] MEDS: normal saline 1000ml 1,000 ML IV SCH (01:43)
[2017-12-14] MEDS ORDERED: potassium Cl 40MEQ/NS 500ml 500 ML IV PRN ×2 (05:05)
[2017-12-14] MEDS ORDERED: magnesium 4gm in 100ml NS 100 ML IV PRN (05:05)
[2017-12-14] MEDS ORDERED: potassium Cl 20 mEq SR tablet PO PRN ×2 (05:05)
[2017-12-14] MEDS ORDERED: magnesium Cl slow-release 64mg tablet PO PRN (05:05)
[2017-12-14] MEDS: diltiazem 30mg tablet PO SCH ×4 (05:18→19:11)
[2017-12-14 05:39] LABS: BASOPHILS % (AUTO) 0.5 % (0-1); EOSINOPHILS # (AUTO) 0.1 X10'3 (0-0.9); HEMATOCRIT 31.6 % (35.0-45.0); HEMOGLOBIN 9.8 g/dl (12.0-16.0); LYMPHOCYTES # (AUTO) 1.2 X10'3 (1.1-4.8); LYMPHOCYTES % (AUTO) 29.8 % (21-51); MEAN CORPUSCULAR HEMOGLOBIN 23.8 PG (27.0-31.0); MEAN CORPUSCULAR VOLUME 76.7 FL (78-98); MEAN PLATELET VOLUME 9.7 FL (7.4-10.4); MONOCYTES # (AUTO) 0.2 X10'3 (0-0.9); MONOCYTES % (AUTO) 5.5 % (2-12); NEUTROPHILS # (AUTO) 2.6 X10'3 (1.8-7.7); NEUTROPHILS % (AUTO) 62.2 % (42-75); PLATELET COUNT 246 X10'3 (140-440); RED BLOOD COUNT 4.11 X10'6 (4.20-5.60); RED CELL DISTRIBUTION WIDTH 20.4 % (11.5-14.5); WHITE BLOOD COUNT 4.2 X10'3 (4.5-11.0)
[2017-12-14 05:59] LABS: PROTHROMBIN TIME 13.3 SECONDS (9.0-12.0)
[2017-12-14 06:00] VITALS: BP 156/68
[2017-12-14 06:00] LABS: ANISOCYTOSIS 2+; HYPOCHROMASIA 1+; INR 1.3 INR; MICROCYTOSIS 1+; PLATELET ESTIMATE NORMAL
[2017-12-14 06:26] LABS: ALBUMIN 2.8 G/DL (3.4-5.0); ANION GAP 12 (8-16); BLOOD UREA NITROGEN 30 MG/DL (7-18); BUN/CREATININE RATIO 27.5 (6.6-38.0); CALCIUM 8.8 MG/DL (8.5-10.1); CHLORIDE 107 MMOL/L (99-107); CREATININE 1.09 MG/DL (0.40-0.90); GLUCOSE 90 MG/DL (70-104); MAGNESIUM 1.6 MG/DL (1.5-2.4); PHOSPHORUS 2.9 MG/DL (2.3-4.5); POTASSIUM 3.7 MMOL/L (3.5-5.1); SODIUM 139 MMOL/L (135-145); TOTAL CARBON DIOXIDE 20.2 MMOL/L (24-32); eGFR 49 ML/MIN
[2017-12-14] MEDS: pantoprazole 40mg Tablet.DR PO SCH (09:21)
[2017-12-14] MEDS: docusate sod 100mg capsule PO SCH (09:21)
[2017-12-14] MEDS: gabapentin 100mg capsule PO SCH ×3 (09:21→20:51)
[2017-12-14] MEDS: citalopram 20mg tablet PO SCH (09:21)
[2017-12-14] MEDS: levoTHYROXINE 88mcg tablet PO SCH (09:22)
[2017-12-14 11:00] VITALS: BP 143/72
[2017-12-14 15:00] VITALS: BP 150/71
[2017-12-14] MEDS ORDERED: oxyCODONE IR 5mg (immed. release) tablet PO PRN (18:55)
[2017-12-14 19:00] VITALS: BP 152/76
[2017-12-14] MEDS: oxyCODONE IR 5mg (immed. release) tablet PO PRN (19:11)
[2017-12-14] MEDS ORDERED: warfarin 5mg tablet PO SCH (21:00)
[2017-12-14] MEDS ORDERED: warfarin 1mg tablet PO ONE (21:00)
[2017-12-14] MEDS ORDERED: lisinopril 10 MG tablet PO SCH (21:00)
[2017-12-14 22:48] VITALS: BP 131/65
[2017-12-15] MEDS: diltiazem 30mg tablet PO SCH ×4 (02:30→19:26)
[2017-12-15 03:00] VITALS: BP 146/68
[2017-12-15] MEDS: oxyCODONE IR 5mg (immed. release) tablet PO PRN ×3 (03:49→19:27)
[2017-12-15 06:00] VITALS: BP 146/80
[2017-12-15 06:39] LABS: BASOPHILS % (AUTO) 0.9 % (0-1); EOSINOPHILS # (AUTO) 0.1 X10'3 (0-0.9); EOSINOPHILS % (AUTO) 2.2 % (0-6); HEMATOCRIT 30.2 % (35.0-45.0); HEMOGLOBIN 9.6 g/dl (12.0-16.0); LYMPHOCYTES # (AUTO) 1.6 X10'3 (1.1-4.8); LYMPHOCYTES % (AUTO) 34.1 % (21-51); MEAN CORPUSCULAR HEMOGLOBIN 24.2 PG (27.0-31.0); MEAN CORPUSCULAR HGB CONC 31.8 % (33.0-36.5); MEAN CORPUSCULAR VOLUME 76.3 FL (78-98); MONOCYTES # (AUTO) 0.4 X10'3 (0-0.9); MONOCYTES % (AUTO) 7.9 % (2-12); NEUTROPHILS # (AUTO) 2.5 X10'3 (1.8-7.7); NEUTROPHILS % (AUTO) 54.9 % (42-75); PLATELET COUNT 249 X10'3 (140-440); RED BLOOD COUNT 3.97 X10'6 (4.20-5.60); RED CELL DISTRIBUTION WIDTH 20.1 % (11.5-14.5); WHITE BLOOD COUNT 4.6 X10'3 (4.5-11.0)
[2017-12-15 06:51] LABS: INR 1.1 INR; PROTHROMBIN TIME 11.4 SECONDS (9.0-12.0)
[2017-12-15 07:00] LABS: ALBUMIN 2.8 G/DL (3.4-5.0); ANION GAP 10 (8-16); BLOOD UREA NITROGEN 20 MG/DL (7-18); CHLORIDE 107 MMOL/L (99-107); CREATININE 0.87 MG/DL (0.40-0.90); GLUCOSE 91 MG/DL (70-104); MAGNESIUM 1.7 MG/DL (1.5-2.4); POTASSIUM 3.7 MMOL/L (3.5-5.1); SODIUM 139 MMOL/L (135-145); TOTAL CARBON DIOXIDE 21.7 MMOL/L (24-32); eGFR 63 ML/MIN
[2017-12-15] MEDS: gabapentin 100mg capsule PO SCH ×3 (08:36→20:21)
[2017-12-15] MEDS: citalopram 20mg tablet PO SCH (08:36)
[2017-12-15] MEDS: pantoprazole 40mg Tablet.DR PO SCH (08:36)
[2017-12-15] MEDS: docusate sod 100mg capsule PO SCH (08:36)
[2017-12-15] MEDS: morphine 2 MG/ML inj. syringe IV PRN ×3 (08:37→22:17)
[2017-12-15] MEDS: levoTHYROXINE 88mcg tablet PO SCH (08:37)
[2017-12-15] MEDS: nitroGLYCERIN 0.4mg SUBLingual tab SL PRN ×3 (09:08→09:22)
[2017-12-15 11:00] VITALS: BP 114/65
[2017-12-15 15:00] VITALS: BP 127/64
[2017-12-15] MEDS ORDERED: Melatonin 3mg tablet PO PRN (17:55)
[2017-12-15] MEDS ORDERED: CefTRIAXone/D5W-Rocephin 1gm 50 ML IV ONE (18:35)
[2017-12-15 19:00] VITALS: BP 141/77
[2017-12-15] MEDS: enoxaparin 60mg/0.6ml syringe SUBCUT SCH (19:28)
[2017-12-15 22:56] VITALS: BP 120/60
[2017-12-16 03:00] VITALS: BP 145/78
[2017-12-16] MEDS: oxyCODONE IR 5mg (immed. release) tablet PO PRN ×4 (03:16→22:26)
[2017-12-16 05:09] LABS: BASOPHILS % (AUTO) 0.5 % (0-1); EOSINOPHILS # (AUTO) 0.2 X10'3 (0-0.9); EOSINOPHILS % (AUTO) 3.5 % (0-6); HEMATOCRIT 30.1 % (35.0-45.0); HEMOGLOBIN 9.6 g/dl (12.0-16.0); LYMPHOCYTES # (AUTO) 1.7 X10'3 (1.1-4.8); LYMPHOCYTES % (AUTO) 31.9 % (21-51); MEAN CORPUSCULAR HEMOGLOBIN 24.3 PG (27.0-31.0); MEAN CORPUSCULAR HGB CONC 31.7 % (33.0-36.5); MEAN CORPUSCULAR VOLUME 76.6 FL (78-98); MONOCYTES # (AUTO) 0.4 X10'3 (0-0.9); MONOCYTES % (AUTO) 7.6 % (2-12); NEUTROPHILS # (AUTO) 3.1 X10'3 (1.8-7.7); NEUTROPHILS % (AUTO) 56.5 % (42-75); PLATELET COUNT 250 X10'3 (140-440); RED BLOOD COUNT 3.93 X10'6 (4.20-5.60); RED CELL DISTRIBUTION WIDTH 19.6 % (11.5-14.5); WHITE BLOOD COUNT 5.4 X10'3 (4.5-11.0)
[2017-12-16] MEDS: morphine 2 MG/ML inj. syringe IV PRN ×3 (05:20→19:41)
[2017-12-16 05:28] LABS: ALBUMIN 2.7 G/DL (3.4-5.0); ANION GAP 11 (8-16); BLOOD UREA NITROGEN 21 MG/DL (7-18); CALCIUM 8.9 MG/DL (8.5-10.1); CHLORIDE 105 MMOL/L (99-107); GLUCOSE 86 MG/DL (70-104); MAGNESIUM 1.5 MG/DL (1.5-2.4); PHOSPHORUS 3.6 MG/DL (2.3-4.5); POTASSIUM 3.8 MMOL/L (3.5-5.1); SODIUM 139 MMOL/L (135-145); TOTAL CARBON DIOXIDE 22.6 MMOL/L (24-32); eGFR 54 ML/MIN
[2017-12-16 05:34] LABS: ANISOCYTOSIS 2+; PLATELET ESTIMATE NORMAL
[2017-12-16 05:44] LABS: INR 1.2 INR; PROTHROMBIN TIME 11.7 SECONDS (9.0-12.0)
[2017-12-16 06:00] VITALS: BP 136/79
[2017-12-16] MEDS: diltiazem CD 120mg capsule (once-daily) PO SCH (08:06)
[2017-12-16] MEDS: citalopram 20mg tablet PO SCH (08:07)
[2017-12-16] MEDS: pantoprazole 40mg Tablet.DR PO SCH (08:08)
[2017-12-16] MEDS: docusate sod 100mg capsule PO SCH (08:08)
[2017-12-16] MEDS: gabapentin 100mg capsule PO SCH ×3 (08:08→20:25)
[2017-12-16] MEDS: enoxaparin 60mg/0.6ml syringe SUBCUT SCH (08:09)
[2017-12-16] MEDS: levoTHYROXINE 88mcg tablet PO SCH (08:09)
[2017-12-16] MEDS: cefpodoxime proxetil 100mg tablet PO SCH ×2 (08:11→18:30)
[2017-12-16 11:00] VITALS: BP 84/48
[2017-12-16 15:00] VITALS: BP 127/76
[2017-12-16 19:00] VITALS: BP 150/84
[2017-12-16] MEDS: apixaban 5mg tablet PO SCH (19:32)
[2017-12-16] MEDS: lactobacillus rhamnosus 10,000 MMU CELLS/CAPSULE PO SCH (19:33)
[2017-12-16] MEDS ORDERED: warfarin 3mg tablet PO ONE (21:00)
[2017-12-16 23:00] VITALS: BP 149/88
[2017-12-17] MEDS: morphine 2 MG/ML inj. syringe IV PRN ×3 (00:26→13:22)
[2017-12-17 03:00] VITALS: BP 151/82
[2017-12-17] MEDS: oxyCODONE IR 5mg (immed. release) tablet PO PRN ×2 (04:51→11:11)
[2017-12-17 05:08] LABS: BASOPHILS % (AUTO) 0.6 % (0-1); EOSINOPHILS # (AUTO) 0.2 X10'3 (0-0.9); EOSINOPHILS % (AUTO) 3.9 % (0-6); HEMOGLOBIN 10.3 g/dl (12.0-16.0); LYMPHOCYTES % (AUTO) 43.1 % (21-51); MEAN CORPUSCULAR HEMOGLOBIN 24.7 PG (27.0-31.0); MEAN CORPUSCULAR HGB CONC 32.2 % (33.0-36.5); MEAN CORPUSCULAR VOLUME 76.6 FL (78-98); MEAN PLATELET VOLUME 9.3 FL (7.4-10.4); MONOCYTES # (AUTO) 0.4 X10'3 (0-0.9); NEUTROPHILS % (AUTO) 43.4 % (42-75); PLATELET COUNT 239 X10'3 (140-440); RED BLOOD COUNT 4.18 X10'6 (4.20-5.60); RED CELL DISTRIBUTION WIDTH 19.4 % (11.5-14.5); WHITE BLOOD COUNT 4.6 X10'3 (4.5-11.0)
[2017-12-17 05:15] LABS: INR 1.1 INR
[2017-12-17 05:21] LABS: ANION GAP 9 (8-16); BLOOD UREA NITROGEN 21 MG/DL (7-18); CHLORIDE 106 MMOL/L (99-107); CREATININE 0.97 MG/DL (0.40-0.90); GLUCOSE 84 MG/DL (70-104); POTASSIUM 3.9 MMOL/L (3.5-5.1); SODIUM 139 MMOL/L (135-145); TOTAL CARBON DIOXIDE 23.8 MMOL/L (24-32)
[2017-12-17 05:22] LABS: ALBUMIN 2.8 G/DL (3.4-5.0); BUN/CREATININE RATIO 21.6 (6.6-38.0); CALCIUM 9.1 MG/DL (8.5-10.1); MAGNESIUM 1.6 MG/DL (1.5-2.4); PHOSPHORUS 3.6 MG/DL (2.3-4.5); eGFR 56 ML/MIN
[2017-12-17 06:00] VITALS: BP 171/93
[2017-12-17 07:07] LABS: ANISOCYTOSIS 2+; HYPOCHROMASIA 1+; PLATELET ESTIMATE NORMAL
[2017-12-17 07:08] LABS: MICROCYTOSIS 1+
[2017-12-17] MEDS: diltiazem CD 120mg capsule (once-daily) PO SCH (09:20)
[2017-12-17] MEDS: apixaban 5mg tablet PO SCH (09:20)
[2017-12-17] MEDS: levoTHYROXINE 88mcg tablet PO SCH (09:20)
[2017-12-17] MEDS: lactobacillus rhamnosus 10,000 MMU CELLS/CAPSULE PO SCH (09:20)
[2017-12-17] MEDS: citalopram 20mg tablet PO SCH (09:20)
[2017-12-17] MEDS: docusate sod 100mg capsule PO SCH (09:20)
[2017-12-17] MEDS: pantoprazole 40mg Tablet.DR PO SCH (09:21)
[2017-12-17] MEDS: gabapentin 100mg capsule PO SCH ×2 (09:22→13:21)
[2017-12-17] MEDS: cefpodoxime proxetil 100mg tablet PO SCH (09:22)
[2017-12-17 11:00] VITALS: BP 142/85
== END 2017-12-17 15:50 | DRG 308 ==
LOC: ER 19:58 → ED HOLD 12-12 01:09 → EDBEDREQ 12-12 01:41 → PCU 3S 12-12 02:24
PROVIDERS: ADMIT Internal Medicine; ATTEND Internal Medicine
DX: I48.91 Unspecified atrial fibrillation (principal); N17.0 Acute kidney failure with tubular necrosis; N39.0 Urinary tract infection, site not specified; E87.6 Hypokalemia; E86.9 Volume depletion, unspecified; F17.200 Nicotine dependence, unspecified, uncomplicated; G89.29 Other chronic pain; I11.0 Hypertensive heart disease with heart failure; I95.9 Hypotension, unspecified; I34.0 Nonrheumatic mitral (valve) insufficiency; Z60.2 Problems related to living alone; T42.6X5A Adverse effect of other antiepileptic and sedative-hypnotic drugs, initial encounter; B96.20 Unspecified Escherichia coli [E. coli] as the cause of diseases classified elsewhere; T48.1X5A Adverse effect of skeletal muscle relaxants [neuromuscular blocking agents], initial encounter; I50.9 Heart failure, unspecified; Z90.5 Acquired absence of kidney; Z99.3 Dependence on wheelchair; Q65.89 Other specified congenital deformities of hip; Z88.2 Allergy status to sulfonamides; Z79.01 Long term (current) use of anticoagulants; Z79.899 Other long term (current) drug therapy; Z86.718 Personal history of other venous thrombosis and embolism; Z85.43 Personal history of malignant neoplasm of ovary; Z85.528 Personal history of other malignant neoplasm of kidney; Z86.73 Personal history of transient ischemic attack (TIA), and cerebral infarction without residual deficits; Z82.49 Family history of ischemic heart disease and other diseases of the circulatory system; Y92.89 Other specified places as the place of occurrence of the external cause
CPT/HCPCS: 36415; 71045; 76775; 80048; 80053; 81001; 82570; 83690; 83735; 83880; 84100; 84156; 84300; 84443; 84484; 85025; 85610; 85730; 87070; 87077; 87088; 87186; 93005; 93306; 97110; 97163; G0378; J0696; J1650; J2270; J2405; J3480; J3490; J7030

== ENCOUNTER 2017-12-26 23:14 | Inpatient (IN) | payer MEDICARE, OTHER ==
[~2017-12-26] VITALS: Ht 165.1 cm; Wt 71.0 kg
[~2017-12-26 23:14] MED LIST changes: +BISA10SU60; -CARV12.549 PO; +CITA20TA19 PO; -CITA20TA27 PO; +DILT240C PO; +DOCU-28 PO; +GABA-532 PO; +HYDR-4383 PO; +IPRA3AMP9 IH; +LACTC PO; +MAGN800O PO; +MULT-38 PO; +NA P133E4 RC; -OMEP40CA37 PO; +PANT-47 PO; +POLY17PO10 PO; +TEMA15CA5 PO; -TIZA2TAB4 PO; +TIZA4CAP PO; -WARF3TAB56 PO; +WARF5TAB PO
[2017-12-26 23:37] LABS: BASOPHILS % (AUTO) 0.1 % (0-1); EOSINOPHILS # (AUTO) 0.2 X10'3 (0-0.9); EOSINOPHILS % (AUTO) 2.6 % (0-6); HEMOGLOBIN 8.6 g/dl (12.0-16.0); LYMPHOCYTES # (AUTO) 1.3 X10'3 (1.1-4.8); MEAN CORPUSCULAR HEMOGLOBIN 24.2 PG (27.0-31.0); MEAN CORPUSCULAR HGB CONC 31.7 % (33.0-36.5); MEAN CORPUSCULAR VOLUME 76.3 FL (78-98); MEAN PLATELET VOLUME 8.4 FL (7.4-10.4); MONOCYTES # (AUTO) 0.6 X10'3 (0-0.9); MONOCYTES % (AUTO) 6.7 % (2-12); NEUTROPHILS # (AUTO) 6.3 X10'3 (1.8-7.7); NEUTROPHILS % (AUTO) 74.6 % (42-75); PLATELET COUNT 273 X10'3 (140-440); RED BLOOD COUNT 3.54 X10'6 (4.20-5.60); RED CELL DISTRIBUTION WIDTH 19.4 % (11.5-14.5); WHITE BLOOD COUNT 8.4 X10'3 (4.5-11.0)
[2017-12-27 00:18] LABS: ALANINE AMINOTRANSFERASE 13 U/L (12-78); ALBUMIN 2.7 G/DL (3.4-5.0); ALBUMIN/GLOBULIN RATIO 0.6 (1.1-1.5); ALKALINE PHOSPHATASE 82 IU/L (46-116); ANION GAP 9 (8-16); ASPARTATE AMINO TRANSFERASE 13 U/L (10-37); BILIRUBIN,TOTAL 0.2 MG/DL (0.1-1.0); BLOOD UREA NITROGEN 28 MG/DL (7-18); BUN/CREATININE RATIO 20.7 (6.6-38.0); CALCIUM 8.7 MG/DL (8.5-10.1); CHLORIDE 102 MMOL/L (99-107); CREATININE 1.35 MG/DL (0.40-0.90); GLUCOSE 129 MG/DL (70-104); POTASSIUM 4.5 MMOL/L (3.5-5.1); SODIUM 136 MMOL/L (135-145); TOTAL CARBON DIOXIDE 25.3 MMOL/L (24-32); TOTAL PROTEIN 6.9 G/DL (6.4-8.2); eGFR 38 ML/MIN
[2017-12-27] MEDS ORDERED: normal saline 1000ml 1,000 ML IV ONE ×2 (00:30→02:35)
[2017-12-27 00:34] LABS: INR 1.4 INR; PARTIAL THROMBOPLASTIN TIME 42 SECONDS (22-32); PROTHROMBIN TIME 13.5 SECONDS (9.0-12.0)
[2017-12-27] MEDS ORDERED: azithromycin/NS 500mg/250ml 250 ML IV ONE (02:35)
[2017-12-27] MEDS ORDERED: CefTRIAXone/D5W-Rocephin 1gm 50 ML IV ONE (02:35)
[2017-12-27 04:47] LABS: CLARITY,URINE CLEAR (Clear); COLOR,URINE YELLOW (Yellow); GLUCOSE, URINE NEGATIVE (Neg); KETONES,URINE NEGATIVE (Neg); LEUKOCYTE ESTERASE ,URINE NEGATIVE (Neg); NITRITES, URINE NEGATIVE (Neg); OCCULT BLOOD,URINE NEGATIVE (Neg); PH,URINE 5.5 (4.8-8.0); PROTEIN,URINE NEGATIVE (Neg); UROBILINOGEN,URINE 0.2 E.U/dL (0.2-1.0)
[2017-12-27 04:50] LABS: UA COLLECTION TYPE CLN CATCH MIDSTREAM
[2017-12-27] MEDS ORDERED: acetaminophen 325mg tablet PO PRN ×2 (04:50)
[2017-12-27] MEDS ORDERED: ondansetron/PF 4mg/2ml inj IV PRN (04:50)
[2017-12-27] MEDS ORDERED: magnesium hydroxide 30ml (MOM) UD suspension PO PRN (04:50)
[2017-12-27] MEDS: normal saline 1000ml 1,000 ML IV SCH ×2 (05:10→18:09)
[2017-12-27] MEDS ORDERED: MELA3TAB PO (05:11)
[2017-12-27] MEDS ORDERED: HYDR-4353 PO (05:11)
[2017-12-27] MEDS ORDERED: LACT1CAP57 PO (05:11)
[2017-12-27] MEDS ORDERED: LISI10TA4 PO (05:11)
[2017-12-27] MEDS ORDERED: NITR0.4T51 SL (05:11)
[2017-12-27] MEDS ORDERED: non-formulary drug (Na Phos,M-B/Na Phos,Di-Ba* (Fleet's Enema*) 1 BOTTLE) RC SCH (05:35)
[2017-12-27] MEDS ORDERED: nitroGLYCERIN 0.4mg SUBLingual tab SL PRN (05:35)
[2017-12-27] MEDS: ipratropium/albuterol 3ml nebule NEB SCH ×4 (06:45→20:29)
[2017-12-27] MEDS: levoTHYROXINE 88mcg tablet PO SCH (08:00)
[2017-12-27] MEDS: citalopram 20mg tablet PO SCH (08:30)
[2017-12-27] MEDS: pantoprazole 40mg Tablet.DR PO SCH (08:30)
[2017-12-27] MEDS: multivitamins, therapeutics tablet PO SCH (08:30)
[2017-12-27] MEDS: lactobacillus rhamnosus 10,000 MMU CELLS/CAPSULE PO SCH ×2 (08:30→20:47)
[2017-12-27] MEDS: methylPREDNISolone sod succ/PF 40mg inj. IV SCH (08:30)
[2017-12-27] MEDS: cyclobenzaprine 10mg tablet PO SCH ×3 (08:30→20:47)
[2017-12-27] MEDS: docusate sod 100mg capsule PO SCH ×2 (08:30→20:47)
[2017-12-27] MEDS: gabapentin 300mg capsule PO SCH ×3 (08:30→20:48)
[2017-12-27] MEDS: piperacillin/tazo 3.375gm/50ml 50 ML IV SCH ×3 (08:30→20:47)
[2017-12-27] MEDS: oxyCODONE IR 5mg (immed. release) tablet PO SCH ×3 (08:31→20:47)
[2017-12-27 09:36] LABS: ABG BASE EXCESS -5.9 mmol/L (-2.0-3.0); ABG HCO3 19.9 mmol/L (22.0-26.0); ABG OXYGEN SATURATION 90.1 % (95-98); ABG PCO2 (T) 40.6 mmHg (32.0-45.0); ABG PH (T) 7.308 (7.350-7.450); ALLEN'S TEST Positive; FCOHb 0.8 % (0.5-1.5); FO2Hb 89.4 % (94-100); MINUTE VOLUME 11 L/min; RESPIRATORY RATE 12 b/min; RESPIRATORY RATE (OBSERVED) 14 b/min; TIDAL VOLUME 751 mL; TOTAL HEMOGLOBIN 8.3 G/dl (12.0-16.0)
[2017-12-27 12:56] LABS: ABG BASE EXCESS -7.2 mmol/L (-2.0-3.0); ABG HCO3 18.5 mmol/L (22.0-26.0); ABG PCO2 (T) 37.5 mmHg (32.0-45.0); ABG PO2 (T) 73.2 mmHg (83-108); ALLEN'S TEST Positive; FCOHb 0.3 % (0.5-1.5); FLOW 6 L/min; FMetHb 0.1 % (0.3-1.12); FO2Hb 92.6 % (94-100); TOTAL HEMOGLOBIN 7.9 G/dl (12.0-16.0)
[2017-12-27 15:00] VITALS: BP 114/72
[2017-12-27] MEDS ORDERED: warfarin 5mg tablet PO SCH (17:00)
[2017-12-27 19:00] VITALS: BP 111/70
[2017-12-27] MEDS: Melatonin 3mg tablet PO SCH (20:48)
[2017-12-27] MEDS ORDERED: warfarin 5mg tablet PO ONE (21:00)
[2017-12-27 23:00] VITALS: BP 125/78
[2017-12-28] MEDS: oxyCODONE IR 5mg (immed. release) tablet PO SCH ×4 (02:22→19:20)
[2017-12-28] MEDS: piperacillin/tazo 3.375gm/50ml 50 ML IV SCH ×4 (02:23→19:20)
[2017-12-28 03:00] VITALS: BP 95/78
[2017-12-28 06:00] VITALS: BP 146/85
[2017-12-28] MEDS: ipratropium/albuterol 3ml nebule NEB SCH ×3 (06:45→19:54)
[2017-12-28 06:55] LABS: ALANINE AMINOTRANSFERASE 23 U/L (12-78); ALBUMIN 2.4 G/DL (3.4-5.0); ALBUMIN/GLOBULIN RATIO 0.6 (1.1-1.5); ALKALINE PHOSPHATASE 99 IU/L (46-116); ANION GAP 10 (8-16); ASPARTATE AMINO TRANSFERASE 16 U/L (10-37); BILIRUBIN,TOTAL 0.3 MG/DL (0.1-1.0); BLOOD UREA NITROGEN 25 MG/DL (7-18); BUN/CREATININE RATIO 22.1 (6.6-38.0); CALCIUM 8.7 MG/DL (8.5-10.1); CHLORIDE 108 MMOL/L (99-107); CREATININE 1.13 MG/DL (0.40-0.90); GLUCOSE 128 MG/DL (70-104); MAGNESIUM 1.9 MG/DL (1.5-2.4); PHOSPHORUS 3.4 MG/DL (2.3-4.5); POTASSIUM 4.5 MMOL/L (3.5-5.1); SODIUM 140 MMOL/L (135-145); TOTAL CARBON DIOXIDE 22.3 MMOL/L (24-32); TOTAL PROTEIN 6.4 G/DL (6.4-8.2); eGFR 47 ML/MIN
[2017-12-28 06:58] LABS: BASOPHILS % (AUTO) 0.4 % (0-1); EOSINOPHILS # (AUTO) 0.1 X10'3 (0-0.9); HEMOGLOBIN 7.9 g/dl (12.0-16.0); LYMPHOCYTES # (AUTO) 0.8 X10'3 (1.1-4.8); LYMPHOCYTES % (AUTO) 10.2 % (21-51); MEAN CORPUSCULAR HEMOGLOBIN 24.1 PG (27.0-31.0); MEAN CORPUSCULAR HGB CONC 31.7 % (33.0-36.5); MEAN CORPUSCULAR VOLUME 75.8 FL (78-98); MEAN PLATELET VOLUME 8.9 FL (7.4-10.4); MONOCYTES # (AUTO) 0.3 X10'3 (0-0.9); MONOCYTES % (AUTO) 4.7 % (2-12); NEUTROPHILS # (AUTO) 6.2 X10'3 (1.8-7.7); NEUTROPHILS % (AUTO) 83.7 % (42-75); PLATELET COUNT 261 X10'3 (140-440); RED CELL DISTRIBUTION WIDTH 18.6 % (11.5-14.5); WHITE BLOOD COUNT 7.4 X10'3 (4.5-11.0)
[2017-12-28 07:12] LABS: INR 1.1 INR; PARTIAL THROMBOPLASTIN TIME 30 SECONDS (22-32); PROTHROMBIN TIME 10.8 SECONDS (9.0-12.0)
[2017-12-28] MEDS: normal saline 1000ml 1,000 ML IV SCH ×2 (07:29→20:49)
[2017-12-28] MEDS: methylPREDNISolone sod succ/PF 40mg inj. IV SCH (08:19)
[2017-12-28] MEDS: lactobacillus rhamnosus 10,000 MMU CELLS/CAPSULE PO SCH ×2 (08:20→19:20)
[2017-12-28] MEDS: cyclobenzaprine 10mg tablet PO SCH ×3 (08:20→21:48)
[2017-12-28] MEDS: pantoprazole 40mg Tablet.DR PO SCH (08:20)
[2017-12-28] MEDS: levoTHYROXINE 88mcg tablet PO SCH (08:20)
[2017-12-28] MEDS: gabapentin 300mg capsule PO SCH ×3 (08:21→21:47)
[2017-12-28] MEDS: citalopram 20mg tablet PO SCH (08:21)
[2017-12-28] MEDS: docusate sod 100mg capsule PO SCH ×2 (08:21→19:20)
[2017-12-28] MEDS: multivitamins, therapeutics tablet PO SCH (08:21)
[2017-12-28 11:00] VITALS: BP 141/87
[2017-12-28] MEDS ORDERED: diltiazem 30mg tablet PO ONE (12:24)
[2017-12-28] MEDS: diltiazem 30mg tablet PO SCH ×2 (14:15→19:20)
[2017-12-28 15:00] VITALS: BP 137/83
[2017-12-28 18:00] VITALS: BP 118/76
[2017-12-28] MEDS ORDERED: warfarin 7.5mg tablet PO ONE (21:00)
[2017-12-28] MEDS: Melatonin 3mg tablet PO SCH (21:48)
[2017-12-28 22:00] VITALS: BP 136/86
[2017-12-29] MEDS: piperacillin/tazo 3.375gm/50ml 50 ML IV SCH ×4 (01:32→20:21)
[2017-12-29] MEDS: oxyCODONE IR 5mg (immed. release) tablet PO SCH ×4 (01:33→20:23)
[2017-12-29] MEDS: diltiazem 30mg tablet PO SCH ×4 (01:33→20:21)
[2017-12-29 02:00] VITALS: BP 131/62
[2017-12-29] MEDS ORDERED: guaiFENesin 200 MG/10 ML oral syrup UD cup PO PRN (03:25)
[2017-12-29 06:00] VITALS: BP 170/100
[2017-12-29 06:59] LABS: BASOPHILS % (AUTO) 0.1 % (0-1); EOSINOPHILS # (AUTO) 0.2 X10'3 (0-0.9); EOSINOPHILS % (AUTO) 1.6 % (0-6); HEMATOCRIT 26.8 % (35.0-45.0); HEMOGLOBIN 8.5 g/dl (12.0-16.0); LYMPHOCYTES # (AUTO) 0.9 X10'3 (1.1-4.8); LYMPHOCYTES % (AUTO) 9.4 % (21-51); MEAN CORPUSCULAR HEMOGLOBIN 24.3 PG (27.0-31.0); MEAN CORPUSCULAR HGB CONC 31.8 % (33.0-36.5); MEAN CORPUSCULAR VOLUME 76.6 FL (78-98); MEAN PLATELET VOLUME 7.9 FL (7.4-10.4); MONOCYTES # (AUTO) 0.5 X10'3 (0-0.9); MONOCYTES % (AUTO) 5.4 % (2-12); NEUTROPHILS # (AUTO) 7.8 X10'3 (1.8-7.7); NEUTROPHILS % (AUTO) 83.5 % (42-75); PLATELET COUNT 319 X10'3 (140-440); RED CELL DISTRIBUTION WIDTH 19.2 % (11.5-14.5); WHITE BLOOD COUNT 9.4 X10'3 (4.5-11.0)
[2017-12-29 07:13] LABS: INR 1.1 INR; PARTIAL THROMBOPLASTIN TIME 28 SECONDS (22-32)
[2017-12-29] MEDS: gabapentin 300mg capsule PO SCH ×3 (07:26→21:09)
[2017-12-29] MEDS: citalopram 20mg tablet PO SCH (07:26)
[2017-12-29] MEDS: lactobacillus rhamnosus 10,000 MMU CELLS/CAPSULE PO SCH ×2 (07:26→20:21)
[2017-12-29] MEDS: levoTHYROXINE 88mcg tablet PO SCH (07:26)
[2017-12-29] MEDS: docusate sod 100mg capsule PO SCH ×2 (07:26→20:21)
[2017-12-29] MEDS: multivitamins, therapeutics tablet PO SCH (07:26)
[2017-12-29] MEDS: cyclobenzaprine 10mg tablet PO SCH ×3 (07:27→21:09)
[2017-12-29] MEDS: pantoprazole 40mg Tablet.DR PO SCH (07:27)
[2017-12-29] MEDS: HYDROchlorothiazide 12.5mg capsule PO SCH (07:27)
[2017-12-29 07:33] LABS: ALANINE AMINOTRANSFERASE 24 U/L (12-78); ALBUMIN 2.7 G/DL (3.4-5.0); ALBUMIN/GLOBULIN RATIO 0.6 (1.1-1.5); ALKALINE PHOSPHATASE 100 IU/L (46-116); ANION GAP 13 (8-16); ASPARTATE AMINO TRANSFERASE 19 U/L (10-37); BILIRUBIN,TOTAL 0.3 MG/DL (0.1-1.0); BLOOD UREA NITROGEN 25 MG/DL (7-18); BUN/CREATININE RATIO 21.6 (6.6-38.0); CALCIUM 9.1 MG/DL (8.5-10.1); CHLORIDE 108 MMOL/L (99-107); CREATININE 1.16 MG/DL (0.40-0.90); GLUCOSE 105 MG/DL (70-104); PHOSPHORUS 3.1 MG/DL (2.3-4.5); SODIUM 143 MMOL/L (135-145); TOTAL CARBON DIOXIDE 21.7 MMOL/L (24-32); TOTAL PROTEIN 7.1 G/DL (6.4-8.2); eGFR 45 ML/MIN
[2017-12-29] MEDS: ipratropium/albuterol 3ml nebule NEB SCH ×4 (07:42→19:26)
[2017-12-29] MEDS: predniSONE 20 mg tablet PO SCH (08:01)
[2017-12-29 11:00] VITALS: BP 152/86
[2017-12-29 15:00] VITALS: BP 147/81
[2017-12-29 18:30] VITALS: BP 153/91
[2017-12-29] MEDS ORDERED: warfarin 7.5mg tablet PO ONE (21:00)
[2017-12-29] MEDS: Melatonin 3mg tablet PO SCH (21:10)
[2017-12-29 23:00] VITALS: BP 141/90
[2017-12-30] MEDS: piperacillin/tazo 3.375gm/50ml 50 ML IV SCH ×4 (02:27→20:21)
[2017-12-30] MEDS: diltiazem 30mg tablet PO SCH ×4 (02:27→20:26)
[2017-12-30] MEDS: oxyCODONE IR 5mg (immed. release) tablet PO SCH ×4 (02:30→20:27)
[2017-12-30 03:00] VITALS: BP 159/108
[2017-12-30 06:00] VITALS: BP 159/86
[2017-12-30] MEDS: ipratropium/albuterol 3ml nebule NEB SCH ×4 (07:04→20:41)
[2017-12-30] MEDS: pantoprazole 40mg Tablet.DR PO SCH (07:17)
[2017-12-30] MEDS: levoTHYROXINE 88mcg tablet PO SCH (07:17)
[2017-12-30] MEDS: gabapentin 300mg capsule PO SCH ×3 (07:18→20:26)
[2017-12-30] MEDS: lactobacillus rhamnosus 10,000 MMU CELLS/CAPSULE PO SCH ×2 (07:18→20:26)
[2017-12-30] MEDS: citalopram 20mg tablet PO SCH (07:18)
[2017-12-30] MEDS: cyclobenzaprine 10mg tablet PO SCH ×3 (07:18→20:25)
[2017-12-30] MEDS: multivitamins, therapeutics tablet PO SCH (07:18)
[2017-12-30] MEDS: docusate sod 100mg capsule PO SCH ×2 (07:18→20:25)
[2017-12-30] MEDS: HYDROchlorothiazide 12.5mg capsule PO SCH (07:18)
[2017-12-30] MEDS: predniSONE 20 mg tablet PO SCH (07:31)
[2017-12-30 07:43] LABS: BASOPHILS % (AUTO) 0.2 % (0-1); EOSINOPHILS % (AUTO) 0.5 % (0-6); HEMATOCRIT 27.2 % (35.0-45.0); HEMOGLOBIN 8.7 g/dl (12.0-16.0); LYMPHOCYTES # (AUTO) 1.4 X10'3 (1.1-4.8); LYMPHOCYTES % (AUTO) 15.8 % (21-51); MEAN CORPUSCULAR HGB CONC 31.8 % (33.0-36.5); MEAN CORPUSCULAR VOLUME 75.4 FL (78-98); MEAN PLATELET VOLUME 7.5 FL (7.4-10.4); MONOCYTES # (AUTO) 0.7 X10'3 (0-0.9); MONOCYTES % (AUTO) 7.6 % (2-12); NEUTROPHILS # (AUTO) 6.5 X10'3 (1.8-7.7); NEUTROPHILS % (AUTO) 75.9 % (42-75); PLATELET COUNT 331 X10'3 (140-440); RED BLOOD COUNT 3.62 X10'6 (4.20-5.60); RED CELL DISTRIBUTION WIDTH 19.5 % (11.5-14.5); WHITE BLOOD COUNT 8.6 X10'3 (4.5-11.0)
[2017-12-30 08:04] LABS: INR 1.7 INR; PARTIAL THROMBOPLASTIN TIME 30 SECONDS (22-32); PROTHROMBIN TIME 16.4 SECONDS (9.0-12.0)
[2017-12-30 08:07] LABS: ALANINE AMINOTRANSFERASE 31 U/L (12-78); ALBUMIN 2.8 G/DL (3.4-5.0); ALBUMIN/GLOBULIN RATIO 0.7 (1.1-1.5); ALKALINE PHOSPHATASE 94 IU/L (46-116); ANION GAP 13 (8-16); ASPARTATE AMINO TRANSFERASE 28 U/L (10-37); BILIRUBIN,TOTAL 0.4 MG/DL (0.1-1.0); BLOOD UREA NITROGEN 20 MG/DL (7-18); BUN/CREATININE RATIO 16.1 (6.6-38.0); CALCIUM 8.8 MG/DL (8.5-10.1); CHLORIDE 107 MMOL/L (99-107); CREATININE 1.24 MG/DL (0.40-0.90); GLUCOSE 96 MG/DL (70-104); MAGNESIUM 1.7 MG/DL (1.5-2.4); PHOSPHORUS 3.1 MG/DL (2.3-4.5); POTASSIUM 3.4 MMOL/L (3.5-5.1); SODIUM 143 MMOL/L (135-145); TOTAL CARBON DIOXIDE 23.4 MMOL/L (24-32); TOTAL PROTEIN 7.1 G/DL (6.4-8.2); eGFR 42 ML/MIN
[2017-12-30] MEDS: metoprolol tartrate 25mg tablet PO SCH ×2 (10:41→20:24)
[2017-12-30 11:00] VITALS: BP 164/80
[2017-12-30 15:00] VITALS: BP 108/73
[2017-12-30 19:00] VITALS: BP 136/80
[2017-12-30] MEDS ORDERED: potassium Cl 20 mEq SR tablet PO PRN ×2 (19:20)
[2017-12-30] MEDS ORDERED: potassium Cl 40MEQ/NS 500ml 500 ML IV PRN ×2 (19:20)
[2017-12-30 20:05] LABS: ALBUMIN 2.8 G/DL (3.4-5.0); ANION GAP 8 (8-16); BLOOD UREA NITROGEN 22 MG/DL (7-18); BUN/CREATININE RATIO 16.7 (6.6-38.0); CALCIUM 8.4 MG/DL (8.5-10.1); CHLORIDE 106 MMOL/L (99-107); CREATININE 1.32 MG/DL (0.40-0.90); GLUCOSE 149 MG/DL (70-104); PHOSPHORUS 4.5 MG/DL (2.3-4.5); POTASSIUM 4.1 MMOL/L (3.5-5.1); SODIUM 141 MMOL/L (135-145); eGFR 39 ML/MIN
[2017-12-30] MEDS: Melatonin 3mg tablet PO SCH (20:27)
[2017-12-30] MEDS ORDERED: warfarin 5mg tablet PO ONE (21:00)
[2017-12-30 23:00] VITALS: BP 131/76
[2017-12-31] MEDS: diltiazem 30mg tablet PO SCH ×4 (01:41→20:14)
[2017-12-31] MEDS: piperacillin/tazo 3.375gm/50ml 50 ML IV SCH ×4 (01:42→20:00)
[2017-12-31] MEDS: oxyCODONE IR 5mg (immed. release) tablet PO SCH ×4 (01:42→20:15)
[2017-12-31 03:00] VITALS: BP 109/77
[2017-12-31 06:00] VITALS: BP 113/67
[2017-12-31 06:30] LABS: BASOPHILS # (AUTO) 0.1 X10'3 (0-0.2); BASOPHILS % (AUTO) 1.2 % (0-1); EOSINOPHILS # (AUTO) 0.1 X10'3 (0-0.9); EOSINOPHILS % (AUTO) 1.8 % (0-6); HEMATOCRIT 25.9 % (35.0-45.0); HEMOGLOBIN 8.2 g/dl (12.0-16.0); LYMPHOCYTES # (AUTO) 1.5 X10'3 (1.1-4.8); LYMPHOCYTES % (AUTO) 24.6 % (21-51); MEAN CORPUSCULAR HEMOGLOBIN 24.2 PG (27.0-31.0); MEAN CORPUSCULAR HGB CONC 31.7 % (33.0-36.5); MEAN CORPUSCULAR VOLUME 76.5 FL (78-98); MEAN PLATELET VOLUME 8.2 FL (7.4-10.4); MONOCYTES # (AUTO) 0.5 X10'3 (0-0.9); NEUTROPHILS # (AUTO) 3.9 X10'3 (1.8-7.7); NEUTROPHILS % (AUTO) 64.4 % (42-75); PLATELET COUNT 286 X10'3 (140-440); RED BLOOD COUNT 3.38 X10'6 (4.20-5.60); RED CELL DISTRIBUTION WIDTH 18.9 % (11.5-14.5)
[2017-12-31 06:58] LABS: ALANINE AMINOTRANSFERASE 29 U/L (12-78); ALBUMIN 2.5 G/DL (3.4-5.0); ALBUMIN/GLOBULIN RATIO 0.6 (1.1-1.5); ALKALINE PHOSPHATASE 76 IU/L (46-116); ANION GAP 8 (8-16); BILIRUBIN,TOTAL 0.3 MG/DL (0.1-1.0); BLOOD UREA NITROGEN 20 MG/DL (7-18); BUN/CREATININE RATIO 16.1 (6.6-38.0); CALCIUM 8.5 MG/DL (8.5-10.1); CHLORIDE 107 MMOL/L (99-107); CREATININE 1.24 MG/DL (0.40-0.90); GLUCOSE 82 MG/DL (70-104); MAGNESIUM 2.4 MG/DL (1.5-2.4); SODIUM 143 MMOL/L (135-145); TOTAL PROTEIN 6.7 G/DL (6.4-8.2); eGFR 42 ML/MIN
[2017-12-31 07:01] LABS: ASPARTATE AMINO TRANSFERASE 29 U/L (10-37); INR 3.1 INR; PARTIAL THROMBOPLASTIN TIME 35 SECONDS (22-32); PHOSPHORUS 3.6 MG/DL (2.3-4.5); POTASSIUM 4.5 MMOL/L (3.5-5.1); PROTHROMBIN TIME 29.4 SECONDS (9.0-12.0)
[2017-12-31] MEDS: ipratropium/albuterol 3ml nebule NEB SCH ×4 (07:11→19:33)
[2017-12-31] MEDS: gabapentin 300mg capsule PO SCH ×3 (08:29→20:15)
[2017-12-31] MEDS: HYDROchlorothiazide 12.5mg capsule PO SCH (08:29)
[2017-12-31] MEDS: pantoprazole 40mg Tablet.DR PO SCH (08:29)
[2017-12-31] MEDS: multivitamins, therapeutics tablet PO SCH (08:29)
[2017-12-31] MEDS: cyclobenzaprine 10mg tablet PO SCH ×3 (08:30→20:14)
[2017-12-31] MEDS: levoTHYROXINE 88mcg tablet PO SCH (08:30)
[2017-12-31] MEDS: predniSONE 20 mg tablet PO SCH (08:30)
[2017-12-31] MEDS: docusate sod 100mg capsule PO SCH ×2 (08:30→20:15)
[2017-12-31] MEDS: lactobacillus rhamnosus 10,000 MMU CELLS/CAPSULE PO SCH ×2 (08:30→20:14)
[2017-12-31] MEDS: metoprolol tartrate 25mg tablet PO SCH ×2 (08:31→20:16)
[2017-12-31] MEDS: citalopram 20mg tablet PO SCH (08:31)
[2017-12-31 11:00] VITALS: BP 123/88
[2017-12-31] MEDS ORDERED: PEG 3350/Na sulf,bicarb,Cl/KCl oral sol 4 liter bottle PO ONE (13:30)
[2017-12-31 15:00] VITALS: BP 136/74
[2017-12-31 18:00] VITALS: BP 136/76
[2017-12-31] MEDS ORDERED: MESSAGE TO NURSING PO NR (20:00)
[2017-12-31] MEDS: Melatonin 3mg tablet PO SCH (21:00)
[2018-01-01] MEDS: oxyCODONE IR 5mg (immed. release) tablet PO SCH ×4 (01:30→20:19)
[2018-01-01] MEDS: diltiazem 30mg tablet PO SCH ×4 (01:32→20:20)
[2018-01-01] MEDS: piperacillin/tazo 3.375gm/50ml 50 ML IV SCH ×4 (01:51→20:18)
[2018-01-01 02:00] VITALS: BP 139/85
[2018-01-01] MEDS: ipratropium/albuterol 3ml nebule NEB PRN (02:00)
[2018-01-01 05:42] LABS: BASOPHILS % (AUTO) 0.2 % (0-1); EOSINOPHILS # (AUTO) 0.1 X10'3 (0-0.9); EOSINOPHILS % (AUTO) 1.7 % (0-6); HEMATOCRIT 26.8 % (35.0-45.0); HEMOGLOBIN 8.4 g/dl (12.0-16.0); LYMPHOCYTES # (AUTO) 1.7 X10'3 (1.1-4.8); LYMPHOCYTES % (AUTO) 24.7 % (21-51); MEAN CORPUSCULAR HEMOGLOBIN 23.8 PG (27.0-31.0); MEAN CORPUSCULAR HGB CONC 31.4 % (33.0-36.5); MEAN CORPUSCULAR VOLUME 75.9 FL (78-98); MONOCYTES # (AUTO) 0.6 X10'3 (0-0.9); MONOCYTES % (AUTO) 8.4 % (2-12); NEUTROPHILS # (AUTO) 4.4 X10'3 (1.8-7.7); PLATELET COUNT 338 X10'3 (140-440); RED BLOOD COUNT 3.53 X10'6 (4.20-5.60); RED CELL DISTRIBUTION WIDTH 18.9 % (11.5-14.5); WHITE BLOOD COUNT 6.8 X10'3 (4.5-11.0)
[2018-01-01 06:00] VITALS: BP 159/81
[2018-01-01 06:09] LABS: ALANINE AMINOTRANSFERASE 27 U/L (12-78); ALBUMIN 2.7 G/DL (3.4-5.0); ALBUMIN/GLOBULIN RATIO 0.7 (1.1-1.5); ALKALINE PHOSPHATASE 73 IU/L (46-116); ANION GAP 11 (8-16); ASPARTATE AMINO TRANSFERASE 17 U/L (10-37); BILIRUBIN,TOTAL 0.3 MG/DL (0.1-1.0); BLOOD UREA NITROGEN 21 MG/DL (7-18); BUN/CREATININE RATIO 16.2 (6.6-38.0); CALCIUM 8.5 MG/DL (8.5-10.1); CHLORIDE 103 MMOL/L (99-107); GLUCOSE 74 MG/DL (70-104); INR 3.2 INR; MAGNESIUM 1.9 MG/DL (1.5-2.4); PARTIAL THROMBOPLASTIN TIME 36 SECONDS (22-32); PHOSPHORUS 2.7 MG/DL (2.3-4.5); POTASSIUM 3.5 MMOL/L (3.5-5.1); PROTHROMBIN TIME 30.8 SECONDS (9.0-12.0); SODIUM 141 MMOL/L (135-145); TOTAL CARBON DIOXIDE 27.1 MMOL/L (24-32); TOTAL PROTEIN 6.8 G/DL (6.4-8.2); eGFR 40 ML/MIN
[2018-01-01] MEDS: ipratropium/albuterol 3ml nebule NEB SCH ×4 (07:08→19:13)
[2018-01-01] MEDS: pantoprazole 40mg Tablet.DR PO SCH (07:40)
[2018-01-01] MEDS: gabapentin 300mg capsule PO SCH ×3 (07:40→20:19)
[2018-01-01] MEDS: lactobacillus rhamnosus 10,000 MMU CELLS/CAPSULE PO SCH ×2 (07:40→20:19)
[2018-01-01] MEDS: levoTHYROXINE 88mcg tablet PO SCH (07:40)
[2018-01-01] MEDS: HYDROchlorothiazide 12.5mg capsule PO SCH (07:40)
[2018-01-01] MEDS: docusate sod 100mg capsule PO SCH ×2 (07:40→20:19)
[2018-01-01] MEDS: metoprolol tartrate 25mg tablet PO SCH ×2 (07:41→20:19)
[2018-01-01] MEDS: cyclobenzaprine 10mg tablet PO SCH ×3 (07:41→20:20)
[2018-01-01] MEDS: predniSONE 20 mg tablet PO SCH (07:41)
[2018-01-01] MEDS: multivitamins, therapeutics tablet PO SCH (07:41)
[2018-01-01] MEDS: citalopram 20mg tablet PO SCH (07:41)
[2018-01-01 11:00] VITALS: BP 150/87
[2018-01-01] MEDS ORDERED: bisacodyl 10mg suppository rectal RC STA (12:27)
[2018-01-01] MEDS ORDERED: polyethylene glycol 3350 17gm powd pack PO PRN (12:45)
[2018-01-01 15:00] VITALS: BP 141/75
[2018-01-01 19:00] VITALS: BP 162/85
[2018-01-01] MEDS ORDERED: bisacodyl 10mg suppository rectal RC ONE (20:00)
[2018-01-01] MEDS: Melatonin 3mg tablet PO SCH (20:19)
[2018-01-01] MEDS ORDERED: polyethylene glycol 3350 17gm powd pack PO SCH (21:00)
[2018-01-01 23:00] VITALS: BP 130/85
[2018-01-02] MEDS: ipratropium/albuterol 3ml nebule NEB PRN
[2018-01-02 00:26] LABS: ABG BASE EXCESS 4.6 mmol/L (-2.0-3.0); ABG HCO3 28.4 mmol/L (22.0-26.0); ABG OXYGEN SATURATION 94.9 % (95-98); ABG PCO2 (T) 39.5 mmHg (32.0-45.0); ABG PH (T) 7.475 (7.350-7.450); FCOHb 0.3 % (0.5-1.5); FLOW 2 L/min; FMetHb 0.1 % (0.3-1.12); FO2Hb 94.5 % (94-100); PATIENT TEMPERATURE 37.1; RESPIRATORY RATE (OBSERVED) 18 b/min; TOTAL HEMOGLOBIN 9.7 G/dl (12.0-16.0)
[2018-01-02] MEDS: oxyCODONE IR 5mg (immed. release) tablet PO SCH ×2 (02:01→07:34)
[2018-01-02] MEDS: diltiazem 30mg tablet PO SCH ×2 (02:02→07:33)
[2018-01-02] MEDS: piperacillin/tazo 3.375gm/50ml 50 ML IV SCH ×2 (02:04→07:32)
[2018-01-02 03:00] VITALS: BP 145/81
[2018-01-02 06:01] LABS: BASOPHILS % (AUTO) 0.3 % (0-1); EOSINOPHILS # (AUTO) 0.2 X10'3 (0-0.9); EOSINOPHILS % (AUTO) 2.1 % (0-6); HEMATOCRIT 27.4 % (35.0-45.0); HEMOGLOBIN 8.5 g/dl (12.0-16.0); LYMPHOCYTES # (AUTO) 1.8 X10'3 (1.1-4.8); LYMPHOCYTES % (AUTO) 19.4 % (21-51); MEAN CORPUSCULAR HEMOGLOBIN 23.5 PG (27.0-31.0); MEAN CORPUSCULAR HGB CONC 31.1 % (33.0-36.5); MEAN CORPUSCULAR VOLUME 75.4 FL (78-98); MEAN PLATELET VOLUME 7.8 FL (7.4-10.4); MONOCYTES # (AUTO) 0.5 X10'3 (0-0.9); MONOCYTES % (AUTO) 5.9 % (2-12); NEUTROPHILS # (AUTO) 6.7 X10'3 (1.8-7.7); NEUTROPHILS % (AUTO) 72.3 % (42-75); PLATELET COUNT 330 X10'3 (140-440); RED BLOOD COUNT 3.63 X10'6 (4.20-5.60); RED CELL DISTRIBUTION WIDTH 19.1 % (11.5-14.5); WHITE BLOOD COUNT 9.3 X10'3 (4.5-11.0)
[2018-01-02 06:23] LABS: ALANINE AMINOTRANSFERASE 20 U/L (12-78); ALBUMIN 2.3 G/DL (3.4-5.0); ALBUMIN/GLOBULIN RATIO 0.6 (1.1-1.5); ALKALINE PHOSPHATASE 72 IU/L (46-116); ANION GAP 8 (8-16); ASPARTATE AMINO TRANSFERASE 15 U/L (10-37); BILIRUBIN,TOTAL 0.4 MG/DL (0.1-1.0); BLOOD UREA NITROGEN 17 MG/DL (7-18); BUN/CREATININE RATIO 13.2 (6.6-38.0); CALCIUM 8.3 MG/DL (8.5-10.1); CHLORIDE 105 MMOL/L (99-107); CREATININE 1.29 MG/DL (0.40-0.90); GLUCOSE 73 MG/DL (70-104); POTASSIUM 3.2 MMOL/L (3.5-5.1); SODIUM 142 MMOL/L (135-145); TOTAL CARBON DIOXIDE 28.6 MMOL/L (24-32); eGFR 40 ML/MIN
[2018-01-02 06:28] LABS: INR 2.4 INR; PARTIAL THROMBOPLASTIN TIME 37 SECONDS (22-32); PROTHROMBIN TIME 22.9 SECONDS (9.0-12.0)
[2018-01-02 07:00] VITALS: BP 155/87
[2018-01-02] MEDS: levoTHYROXINE 88mcg tablet PO SCH (07:32)
[2018-01-02] MEDS: citalopram 20mg tablet PO SCH (07:32)
[2018-01-02] MEDS: gabapentin 300mg capsule PO SCH ×2 (07:32→12:46)
[2018-01-02] MEDS: docusate sod 100mg capsule PO SCH (07:32)
[2018-01-02] MEDS: pantoprazole 40mg Tablet.DR PO SCH (07:32)
[2018-01-02] MEDS: multivitamins, therapeutics tablet PO SCH (07:33)
[2018-01-02] MEDS: cyclobenzaprine 10mg tablet PO SCH ×2 (07:33→12:46)
[2018-01-02] MEDS: metoprolol tartrate 25mg tablet PO SCH (07:33)
[2018-01-02] MEDS: predniSONE 20 mg tablet PO SCH (07:33)
[2018-01-02] MEDS: HYDROchlorothiazide 12.5mg capsule PO SCH (07:33)
[2018-01-02] MEDS: lactobacillus rhamnosus 10,000 MMU CELLS/CAPSULE PO SCH (07:33)
[2018-01-02] MEDS: ipratropium/albuterol 3ml nebule NEB SCH ×2 (07:38→11:24)
[2018-01-02 11:00] VITALS: BP 123/78
== END 2018-01-02 13:16 | DRG 178 ==
LOC: ER 23:14 → ED HOLD 12-27 04:49 → PCU 3S 12-27 11:20
PROC: 5A09357 Assistance with Respiratory Ventilation, Less than 24 Consecutive Hours, Continuous Positive Airway Pressure (ICD-10-PCS; principal; 2017-12-27)
PROC: 5A09357 Assistance with Respiratory Ventilation, Less than 24 Consecutive Hours, Continuous Positive Airway Pressure (ICD-10-PCS; 2017-12-28)
DX: J69.0 Pneumonitis due to inhalation of food and vomit (principal); J44.0 Chronic obstructive pulmonary disease with (acute) lower respiratory infection; J96.10 Chronic respiratory failure, unspecified whether with hypoxia or hypercapnia; J44.1 Chronic obstructive pulmonary disease with (acute) exacerbation; I50.9 Heart failure, unspecified; I11.0 Hypertensive heart disease with heart failure; I25.10 Atherosclerotic heart disease of native coronary artery without angina pectoris; I48.91 Unspecified atrial fibrillation; Z60.2 Problems related to living alone; R91.1 Solitary pulmonary nodule; K59.00 Constipation, unspecified; Z90.5 Acquired absence of kidney; Z90.49 Acquired absence of other specified parts of digestive tract; Z90.710 Acquired absence of both cervix and uterus; Z88.5 Allergy status to narcotic agent; Z88.2 Allergy status to sulfonamides; Z88.8 Allergy status to other drugs, medicaments and biological substances; Z79.899 Other long term (current) drug therapy; Z87.891 Personal history of nicotine dependence; Z85.43 Personal history of malignant neoplasm of ovary; Z85.528 Personal history of other malignant neoplasm of kidney; Z86.718 Personal history of other venous thrombosis and embolism; Z86.73 Personal history of transient ischemic attack (TIA), and cerebral infarction without residual deficits; Z82.49 Family history of ischemic heart disease and other diseases of the circulatory system
CPT/HCPCS: 36415; 36600; 71045; 71046; 71250; 80053; 80069; 81003; 82803; 83605; 83735; 83880; 84100; 84145; 84484; 85018; 85025; 85610; 85730; 87040; 87070; 93005; 94640; 94660; 94668; 94760; 96365; 96368; 97162; 97530; 99285; G0378; J0456; J0696; J2405; J2543; J2920; J7030; J7512

== ENCOUNTER 2018-04-13 14:51 | Inpatient (IN) | payer MEDICARE, MEDICAID, OTHER | END 2018-04-16 15:25 | LOC: ER 14:51 → ED HOLD 18:34 → PCU 3S 23:34 | DX: A41.9 Sepsis, unspecified organism (principal); G93.41 Metabolic encephalopathy; I13.0 Hypertensive heart and chronic kidney disease with heart failure and stage 1 through stage 4 chronic kidney disease, or unspecified chronic kidney disease; N17.9 Acute kidney failure, unspecified; N39.0 Urinary tract infection, site not specified; N18.3 Chronic kidney disease, stage 3 (moderate) ==

== ENCOUNTER 2018-05-27 08:51 | Inpatient (IN) | payer MEDICARE, MEDICAID | END 2018-06-06 12:05 | LOC: CICU 2S 05-28 01:27 → SUR 3N 05-30 16:35 → ER 08:51 | DX: J96.00 Acute respiratory failure, unspecified whether with hypoxia or hypercapnia (principal); J18.1 Lobar pneumonia, unspecified organism; N39.0 Urinary tract infection, site not specified; N17.9 Acute kidney failure, unspecified; E11.22 Type 2 diabetes mellitus with diabetic chronic kidney disease; N18.3 Chronic kidney disease, stage 3 (moderate) ==